=== PATIENT | female | born 1965 | race Caucasian/White ===

== ENCOUNTER 2021-07-19 13:34 | Outpatient (REF) | payer MEDICAID, SELFPAY ==
[2021-07-19 20:17] LABS: Vitamin B12 496 pg/mL (193-986)
== END 2021-07-19 13:35 | disposition home or self-care (01) ==
LOC: NCHCN 13:34
PROVIDERS: Visit Provider Nurse Practitioner
DX: E53.8 Deficiency of other specified B group vitamins (principal)
CPT/HCPCS: 82607

== ENCOUNTER 2021-08-18 00:19 | Outpatient (CLI) | payer MEDICAID, SELFPAY ==
--- NOTE | 2021-08-18 11:26 | DI.MAMMO_ITS ---
Exam(s) MAMMO SCREENING EXAM: MAMMO SCREENING CLINICAL HISTORY: SCREENING FOR BREAST CANCER Z12.39 TECHNIQUE: Bilateral full field digital CC and MLO mammographic images were obtained with 3D tomosyn thesis and utilizing computer aided detection (CAD). COMPARISON: Available for comparison. FINDINGS: Masses/Architectural Distortion: There is a focal asymmetry in the central left breast seen on the ML O view. It may represent overlying fibroglandular tissue. Spot compression views requested. Microcalcifications: No suspicious pleomorphic-type are seen. Skin Thickening/Nipple Retraction: None. IMPRESSION: 1. Focal asymmetry in the central left breast on the MLO view. 2. A spot compression view and left breast ultrasound are requested for further evaluation. BI-RADS Category 0 - Assessment Incomplete: Need additional imaging evaluation Breast Density - Category B - Scattered areas of fibroglandular density Breast density category C or D implies that the patient has dense breast tissue. Dense breast tissue is very common and is not abnormal but dense breast tissue can make it harder to find cancer on a ma mmogram. Also, dense breast tissue may increase their breast cancer risk. This information about the result of the mammogram report was provided to the patient to raise their awareness. Use this report when you speak with the patient about their risks for breast cancer, which includes their family hist ory. At that time, you may recommend for more screening tests (Ultrasound or MRI) as they might be us eful based on their risk. A negative radiographic report should not delay biopsy if a dominant or clinically suspicious mass is present. Up to ten percent of cancers are not identified on mammography. A negative report may reinforce clinical impression. Adenosis and dense breasts may obscure an underlying neoplasm. False positive reports average 6 to 10%. Patient will receive a letter notifying them of these results.
== END 2021-08-18 00:39 ==
PROVIDERS: Visit Provider Nurse Practitioner
DX: Z12.31 Encounter for screening mammogram for malignant neoplasm of breast (principal); R92.8 Other abnormal and inconclusive findings on diagnostic imaging of breast
CPT/HCPCS: 77063; 77067

== ENCOUNTER 2021-08-25 03:04 | Outpatient (CLI) | payer MEDICAID, SELFPAY ==
[2021-08-25 09:34] LABS: Abs Immature Grans 0.01 10^3/uL (0.0-0.06); Absolute Basophil Count 0.02 10^3/uL (0.0-0.2); Absolute Lymphocyte Count 1.91 10^3/uL (1.2-3.4); Absolute Monocyte Count 0.49 10^3/uL (0.1-0.8); Absolute Neutrophil Count 3.63 10^3/uL (1.2-6.7); Basophils % 0.3; Eosinophils % 1.6; HCT 39.4 % (36.0-46.0); HGB 13.1 g/dL (11.2-15.7); Immature Grans % 0.2; MCH 32.8 pg (27.0-33.0); MCHC 33.2 % (32.0-36.0); MCV 98.5 fL (80-95); MPV 8.9 fL (8.0-11.0); Neutrophils % 58.9; Nucleated RBC 0 %; Platelet Count 230 10^3/uL (130-400); RDW 12.4 % (11.7-14.6); RDW-SD 44.9 fL; WBC 6.16 10^3/uL (4.4-10.8)
[2021-08-25 10:00] LABS: ALT 26 U/L (14-59); AST 16 U/L (15-37); Albumin 4.3 g/dL (3.4-5.0); Alkaline Phosphatase 90 U/L (46-116); BUN 12 mg/dL (7-18); Bilirubin, Total 0.5 mg/dL (0.2-1.0); CREATININE 0.8 mg/dL (0.55-1.02); Chloride 106 mmol/L (98-107); Glucose 87 mg/dL (74-106); LDH 177 U/L (81-234); Potassium 3.9 mmol/L (3.5-5.1); Sodium 143 mmol/L (136-145); Total Protein 7.3 g/dL (6.4-8.2)
== END 2021-08-25 03:05 | disposition home or self-care (01) ==
LOC: LBO 03:05
PROVIDERS: Internal Medicine Hematology & Oncology
DX: C82.03 Follicular lymphoma grade I, intra-abdominal lymph nodes (principal)
CPT/HCPCS: 36415; 80053; 83615; 85025

== ENCOUNTER 2021-09-01 00:29 | Outpatient (CLI) | payer MEDICAID, SELFPAY ==
--- NOTE | 2021-09-01 | DI.MAMMO_ITS ---
Exam(s) US BREAST LT COMPLETE MG MAMMO DIAGNOSTIC UNI EXAM: MG MAMMO DIAGNOSTIC UNI- LEFT AND COMPLETE LEFT BREAST ULTRASOUND CLINICAL HISTORY: FOCAL ASYMMETRY IN CENTRAL LEFT BREAST. TECHNIQUE: Unilateral spot MLO mammographic images were obtained with 3D tomosynthesis technique and utilizing computer aided detection (CAD). Also performed complete left breast ultrasound including all 4 quadrants, the retroareolar region and left axilla. COMPARISON: Prior mammograms dating back to 2015, the most recent being 08/18/2021. FINDINGS: Diagnostic left breast mammogram: Additional spot compression 3D MLO view appears to dissipate the area of concern and render at less c oncerning and similar in appearance to prior mammograms. Complete left breast ultrasound: No evidence of solid or significant cystic lesions in all 4 quadrants. No significant adenopathy in the left axilla IMPRESSION: No radiographic evidence of malignancy in left breast. Also negative complete left breast ultrasound. Appropriate follow-up is to keep this patient yearly mammogram schedule, with earlier imaging if a se lf detected breast change is noted.. The patient was informed of the findings and follow-up recommendations prior to leaving the [facility]. BI-RADS Category 2 - Benign Findings Breast Density - Category B - Scattered areas of fibroglandular density Breast density Category C or D implies that the patient has dense breast tissue. Dense breast tissue can make it harder to find cancer on a mammogram. Dense breast tissue is also associated with an incr eased risk of breast cancer. This information about the result of the mammogram report was provided to the patient to raise their awareness. Use this report when you speak with the patient about their risks for breast cancer, which includes their family history. At that time, you may recommend additional screening tests (Ultrasoun d or MRI) as these tests may add significant information. A negative radiographic report should not delay biopsy if a dominant or clinically suspicious mass is present. Up to ten percent of cancers are not identified on mammography. A negative report may reinforce clinical impression. Adenosis and dense breasts may obscure an underlying neoplasm. False positive reports average 6 to 10%. Patient will receive a letter notifying them of these results.
== END 2021-09-01 00:49 ==
PROVIDERS: Visit Provider Nurse Practitioner
DX: Z12.31 Encounter for screening mammogram for malignant neoplasm of breast (principal); R92.8 Other abnormal and inconclusive findings on diagnostic imaging of breast; N64.59 Other signs and symptoms in breast
CPT/HCPCS: 76642; 77063; 77067

== ENCOUNTER 2021-09-21 00:49 | Outpatient (CLI) | payer MEDICAID, SELFPAY ==
--- NOTE | 2021-09-21 | DI.CT_ITS ---
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 TECHNIQUE: Imaging Protocol: Axial computed tomography images with coronal and sagittal reformatted images were created and reviewed CONTRAST MATERIAL: Intravenous: Omnipaque 350 Contrast volume:100 ml Oral: Yes. Oral contrast was also administered for bowel opacification. COMPARISON: No exams were available for comparison FINDINGS: CHEST: LUNGS: There is a benign-appearing 2-3 millimeter subpleural nodule in the posterior basal segment of the left lower lobe which is probably a small granuloma.. There are no ominous pulmonary nodules in either lung field. There are no confluent infiltrates and there are no pleural effusions. No focal fi ndings in the trachea and mainstem bronchi. MEDIASTINUM: There is no hilar nor mediastinal adenopathy. No significant axillary adenopathy.Partial ly visualized thyroid gland appears unremarkable. CARDIAC: Heart size is normal. There is no pericardial effusion.Ascending thoracic aorta diameter is 3.5 cm, upper normal. There is some atherosclerotic involvement of the descending thoracic aorta. No dissection. OSSEOUS: No significant osseous lesions.. ABDOMEN: There is no ascites. LIVER: There are no focal hepatic lesions nor dilatation of intrahepatic ducts. GALLBLADDER/BILIARY: No obvious gallbladder pathology. CBD is not dilated. PANCREAS: No evidence of pancreatic mass nor dilatation of the pancreatic duct. SPLEEN: Spleen is not enlarged. There are no intrasplenic lesions. Splenic and portal veins are castellano nt. ADRENALS: Right adrenal gland unremarkable. There is a 1.0 x 1.0 cm nodule at the level of the genu o f the left adrenal gland. KIDNEYS: No calculi nor hydronephrosis. No solid renal masses. There is a 1.5 x 1.5 cm cyst in the po sterior aspect of the left kidney. ABDOMINAL AORTA: Abdominal aorta is calcified-atherosclerotic but not enlarged. Same is true of the c ommon iliac arteries. LYMPH NODES: There are slightly enlarged para-aortic lymph nodes. Largest of these is left sided and measures 1.2 with a 0.8 cm. There is no adenopathy around the aortic bifurcation nor along the iliac chains there is no inguinal adenopathy. ABDOMINAL WALL: No evidence of significant anterior abdominal wall nor inguinal hernia. No abnormali ty of the anterior abdominal wall subcutaneous fat. GI: There is no evidence of bowel obstruction. PELVIS: LYMPH NODES: There is no intrapelvic nor inguinal adenopathy. GI: No evidence of appendicitis.There is sigmoid diverticuli but no evidence of obvious acutedivertic ulitis. URINARY BLADDER: No calculi nor masses evident REPRODUCTIVE: Uterus size is normal. No abnormal adnexal masses. No free fluid in the pelvis. OSSEOUS: No significant osseous lesions. Degenerative anterolisthesis L4 upon L5. Normal disc height at this level. Advanced disc space narrow ing at L5-S1 level and Modic type sub endplate changes in L5 and S1. No lytic osseous lesions evident IMPRESSION: 1. There is slightly enlarged para-aortic lymph nodes, the largest measuring 12 x 8 millimeter left p monty-aortic lymph node. No obvious lymphadenopathy elsewhere in the abdomen and pelvis. There is no sp lenomegaly. 2. There is no ascites. 3. No significant pulmonary findings nor intrathoracic adenopathy. 4. There is a 1 cm nodule in the left adrenal gland incidentally noted. This is probably an incidenta l adenoma. Other findings as above RADIATION DOSE DELIVERED: 1,594.17mGy.cm Total DLP DATA REPOSITORY: All CT scans at this facility are submitted to the National Radiology Data Registry (NRDR) Dose Index Registry (DIR) with the [employer] ([employer]). RADIATION OPTIMIZATION: All CT scans at this facility use at least one of these dose optimization te chniques: automated exposure control; mA and/or kV adjustment per patient size (includes targeted exa ms where dose is matched to clinical indication); or iterative reconstruction.
[2021-09-21 09:04] LABS: Abs Immature Grans 0.01 10^3/uL (0.0-0.06); Absolute Basophil Count 0.02 10^3/uL (0.0-0.2); Absolute Eosinophil Count 0.05 10^3/uL (0.0-0.7); Absolute Lymphocyte Count 1.46 10^3/uL (1.2-3.4); Absolute Monocyte Count 0.38 10^3/uL (0.1-0.8); Absolute Neutrophil Count 2.89 10^3/uL (1.2-6.7); Basophils % 0.4; HCT 35.7 % (36.0-46.0); HGB 11.5 g/dL (11.2-15.7); Immature Grans % 0.2; Lymphocytes % 30.4; MCHC 32.2 % (32.0-36.0); MCV 99.4 fL (80-95); MPV 9.3 fL (8.0-11.0); Monocytes % 7.9; Neutrophils % 60.1; Nucleated RBC 0 %; Platelet Count 218 10^3/uL (130-400); RBC 3.59 10^6/uL (3.93-5.22); RDW 12.2 % (11.7-14.6); RDW-SD 44.3 fL; WBC 4.81 10^3/uL (4.4-10.8)
[2021-09-21] MEDS: Breeza Beverage 473 ML BTL PO ×2 (09:04)
[2021-09-21] MEDS: Omnipaque 350 MG/ML 50 ML BTL PO (09:06)
[2021-09-21 09:29] LABS: ALT 22 U/L (14-59); AST 13 U/L (15-37); Albumin 3.7 g/dL (3.4-5.0); Alkaline Phosphatase 77 U/L (46-116); Anion Gap 7.2 mmol/L (3-11); BUN 14 mg/dL (7-18); Bilirubin, Total 0.3 mg/dL (0.2-1.0); CO2 28.8 mmol/L (21.0-32.0); CREATININE 0.7 mg/dL (0.55-1.02); Calcium 8.6 mg/dL (8.5-10.1); Chloride 108 mmol/L (98-107); Glucose 91 mg/dL (74-106); LDH 152 U/L (81-234); Potassium 3.6 mmol/L (3.5-5.1); Sodium 144 mmol/L (136-145); Total Protein 6.6 g/dL (6.4-8.2)
[2021-09-21] MEDS: Omnipaque 350 MG/ML 100 ML BTL IJ (09:58)
== END 2021-09-21 01:09 ==
PROVIDERS: Visit Provider Internal Medicine Hematology & Oncology
DX: C82.03 Follicular lymphoma grade I, intra-abdominal lymph nodes; R93.89 Abnormal findings on diagnostic imaging of other specified body structures
CPT/HCPCS: 74177; 80053; 71260; 83615; 85025; J3490; Q9967

== ENCOUNTER 2021-10-29 16:18 | Emergency (ER) | payer MEDICAID, SELFPAY ==
[2021-10-29 16:28] VITALS: BP 134/87; PULSE 96; RESP 16; TEMP 36.7; O2SAT 99
--- NOTE | 2021-10-29 16:30 | DI.CT_ITS ---
Exam(s) CT HEAD CERVICAL SPINE WO EXAM: CT HEAD CERVICAL SPINE WO CLINICAL HISTORY: fall with head injury on ice, r/o acute injury. TECHNIQUE: Imaging Protocol: Axial computed tomography images with coronal and sagittal reformatted images were created and reviewed COMPARISON: No exams were available for comparison FINDINGS: CT Head: Ventricles and Extra axial spaces: Normal in size and morphology for the patient's age. Hemorrhage: None. Cerebral parenchyma: Normal. Midline shift: None. Brainstem/Cerebellum: Normal. Calvarium: Normal. Visualized Paranasal sinuses/Mastoids: Clear. Soft Tissues: There is soft tissue swelling over the posterior apex of the skull. CT Cervical Spine: Bones: No acute fracture or subluxation. Multilevel degenerative changes are seen in the cervical spi ne. There is straightening of the normal cervical lordosis. Soft Tissues: Unremarkable. Lung Apices: Clear. IMPRESSION: 1. No acute intracranial process. 2. No acute fracture or subluxation in the cervical spine. 3. Posterior scalp soft tissue swelling. RADIATION DOSE DELIVERED: 1,410.73mGy.cm Total DLP DATA REPOSITORY: All CT scans at this facility are submitted to the National Radiology Data Registry (NRDR) Dose Index Registry (DIR) with the [employer] ([employer]CR). RADIATION OPTIMIZATION: All CT scans at this facility use at least one of these dose optimization te chniques: automated exposure control; mA and/or kV adjustment per patient size (includes targeted exa ms where dose is matched to clinical indication); or iterative reconstruction.
--- NOTE | 2021-10-29 16:37 | ED.GENADUL_ITS ---
Discharge Plan Disposition Patient Disposition: HOME Condition: Stable Discharge Details Clinical Impression: Closed head injury without loss of consciousness, Contusion of scalp Primary Care Provider: TI YATES ED Provider: Edwige Gaxiola Home Meds and New Rx's Prescriptions: Continued omeprazole 40 mg Capsule,Delayed Release(Dr/Ec) 40 mg PO DAILY 0RF losartan-hydrochlorothiazide 50-12.5 mg Tablet 1 tab PO DAILY 0RF Prempro 0.3-1.5 mg Tablet 1 tab PO DAILY 0RF Discharge Instructions Instructions: Head Injury (ED), Contusion in Adults (ED), Post Concussion Syndrome (ED) Additional Instructions: Drink plenty of fluids and get plenty of rest. Alternate tylenol and motrin as needed and directed for pain. Take the Zofran as needed and directed for nausea or vomiting. Avoid screen time including TV, phone or laptop over the next few days as it may strain your eyes and worsen her headache. Follow-up with your primary care doctor in 1 week. Return to the emergency department with any worsening or new concerning symptoms such as persistent headaches, persistent vomiting or any other concerns. Stand Alone Forms: Work Release Discharge Data Discharge Date/Time-TO BE ENTERED AT DEPARTURE: 10/29/21 18:37 Discharge Physician: Edwige Gaxiola Medical Decision Making 56-year-old female presents with headache and nausea after head injury earlier this morning. Denies LOC, vomiting or neck pain. Denies any other injuries. Vitals within normal limits. She has tenderness overlying the superior occipital region but no open wounds to scalp. No midline cervical tenderness. No focal deficits. Considering patient's age, will obtain CT imaging to rule out intracranial injury or cervical fracture. Will give a dose of Tylenol and Zofran for her nausea. Imaging reviewed and negative for acute concerning findings. Patient feels better and feels comfortable going home. Patient given Zofran bottle to go. Advised on the importance of limiting screen time to prevent worsening headache. Advised to follow up with the primary care doctor for re-evaluation. Usual and customary return precautions given prior to discharge. Medical Records Medical records reviewed: Yes I reviewed the patient's medical records. Imaging Data Radiologic Study: Radiologist's impression: CT Head Without Contrast Exam date and time: 10/29/2021 4:37 PM Age: 56 years old Clinical indication: Other: Occipital pain; Neck pain; Patient HX: S/P blunt trauma to head and neck. Fall TECHNIQUE: Imaging protocol: Computed tomography of the head without contrast. Radiation optimization: All CT scans at this facility use at least one of these dose optimization techniques: automated exposure control; mA and/or kV adjustment per patient size (includes targeted exams where dose is matched to clinical indication); or iterative reconstruction. COMPARISON: No relevant prior studies available. FINDINGS: Brain: No intracranial hemorrhage or extra-axial fluid collection. No evidence of mass effect or midline shift. Saldana-white matter differentiation is intact. Cerebral ventricles: No ventriculomegaly. Paranasal sinuses: Visualized sinuses are unremarkable. No fluid levels. Mastoid air cells: Unremarkable. Bones/joints: No acute osseus lesion or fracture. Soft tissues: Small posterior vertex scalp contusion. IMPRESSION: 1. No acute intracranial pathology. 2. Small posterior vertex scalp contusion. CT Cervical Spine Without Contrast Exam date and time: 10/29/2021 4:37 PM Age: 56 years old Clinical indication: Other: Occipital pain; Neck pain; Patient HX: S/P blunt trauma to head and neck. Fall TECHNIQUE: Imaging protocol: Computed tomography images of the cervical spine without contrast. Radiation optimization: All CT scans at this facility use at least one of these dose optimization techniques: automated exposure control; mA and/or kV adjustment per patient size (includes targeted exams where dose is matched to clinical indication); or iterative reconstruction. COMPARISON: No relevant prior studies available. FINDINGS: Bones/joints: Vertebral body heights are maintained. Straightening of the cervical lordosis. No locked or perched facets. Multilevel facet arthropathy. No acute cervical spine fracture. The dens is intact. Atlanto-axial intervals are normal. Discs/Spinal canal/Neural foramina: Multilevel degenerative changes with intervertebral disc height loss and osteophyte formation, with multilevel areas of mild canal stenosis. Lungs: Lung apices are clear. Soft tissues: Unremarkable. IMPRESSION: No acute cervical spine fracture. HPI General Mode of arrival: ambulatory . Date/Time Provider Initiated Documentation: 10/29/21 16:36 . Limitations to Documentation: no limitations . Information obtained by: patient . HPI Narrative: Patient is a 56-year-old female presents with headache, and nausea after head injury this morning. Patient states she was walking when she slipped on the ice and struck the back of her head on the icy ground. She states this occurred approximately 10 hours ago and is presenting now because her headache is persistent. She states she took ibuprofen this morning and Tylenol at noon without significant relief. She states she hit the top of her head on the ice and this is the main location of her headache. She states she developed a contusion in this area and applied ice and states it is since improved. She denies any neck pain or any other injuries. She denies any vomiting. Related Data Home Medications Medication Instructions Recorded Confirmed conj estrogen-medroxyprogesterone 1 tab PO DAILY 10/29/21 10/29/21 0.3 mg-1.5 mg tablet (Prempro) losartan 50 mg-hydrochlorothiazide 1 tab PO DAILY 10/29/21 10/29/21 12.5 mg tablet omeprazole 40 mg capsule,delayed 40 mg PO DAILY 10/29/21 10/29/21 release Allergies Allergy/AdvReac Type Severity Reaction Status Date / Time oxycodone [From Percocet] Allergy Intermediate Hives Unverified 10/29/21 17:19 Latex, Natural Rubber Allergy Unverified 10/29/21 17:19 General Stated Complaint: HeadInjury LIVAN: 3 Review of Systems All systems reviewed & are unremarkable except as noted in HPI and below Constitutional Constitutional: Reports as per HPI, Denies chills, Denies fever(s) and Reports headache(s) Eyes Eyes: Denies blurry vision ENT Ears, Nose, Mouth, and Throat: Reports dizziness, Reports headache(s), Denies sore throat and Denies throat swelling Cardiovascular Cardiovascular: Denies chest pain and Denies dyspnea Respiratory Respiratory: Denies cough and Denies dyspnea Gastrointestinal Gastrointestinal: Denies abdominal pain, Denies diarrhea, Reports nausea and Denies vomiting Genitourinary Genitourinary: Denies hematuria and Denies dysuria Musculoskeletal Musculoskeletal: Denies back pain and Denies numbness Integumentary/Breasts Skin/Breast: Denies lesions and Denies rash Neurologic Neurologic: Reports dizziness, Reports headache(s), Denies localized weakness and Denies numbness Allergic/Immunologic Allergic/Immunologic: Denies throat swelling PFS All Active Problems (Updated 10/29/21 @ 17:50 by Edwige Gaxiola DO) Closed head injury without loss of consciousness (Acute) Contusion of scalp (Acute) Social History Smoking/Tobacco Use Status: Former Tobacco Use Smoking risk assessment performed?: Yes Alcohol Intake: never Drug use: Never Substance use type: does not use Do you feel safe at home: Yes Exam Const General: cooperative, healthy appearing and no acute distress Orientation: alert, awake and oriented x3 HENMT Head: normal to inspection Head images: 1. Tenderness to palpation. No significant edema, ecchymosis, crepitus or open wounds noted. Ears: hearing grossly normal bilaterally, external ears normal and TM's normal bilaterally General nose exam: external nose normal Mouth: oral mucosae normal Eyes General: appearance normal, both eyes and all related structures Neck Neck: normal visual inspection Resp Effort & Inspection: normal respiratory effort and able to speak in complete sentences Cardio Rate: regular rate Skin General skin exam: no rashes or lesions noted Neuro General: patient alert, patient awake, patient oriented x3, gait normal, moves all extremities and no meningeal signs Cranial Nerves: CN's II-XI intact bilaterally Motor: muscle tone normal throughout and strength 5/5 throughout Extrem General: normal to inspection and full ROM Psych Appearance: grossly normal Affect: normal affect Course Vital Signs Vital signs: Vital Signs Temperature 98.1 F 10/29/21 16:28 Pulse 96 H 10/29/21 16:28 Respiratory Rate 16 10/29/21 16:28 Blood Pressure 134/87 10/29/21 16:28 Pulse Oximetry 99 10/29/21 16:28 Temperature 98.1 F 10/29/21 16:28 Temperature Source Tympanic 10/29/21 16:28 Pulse 96 H 10/29/21 16:28 Respiratory Rate 16 10/29/21 16:28 Blood Pressure 134/87 10/29/21 16:28 Blood Pressure Position Sitting 10/29/21 16:28 Pulse Oximetry 99 10/29/21 16:28 Oxygen Delivery Method Room Air 10/29/21 16:28 Oxygen Flow Rate 0 10/29/21 16:28 Pain Level 10 10/29/21 16:28
[2021-10-29] MEDS: Acetaminophen 500 MG TAB 1000 MG PO ×2 (16:58→18:37)
[2021-10-29] MEDS: Ondansetron O.D.T. 4 MG TABEF PO (16:58)
--- NOTE | 2021-10-29 17:32 | DI.VRAD_ITS ---
PROCEDURE INFORMATION: Exam: CT Head Without Contrast Exam date and time: 10/29/2021 4:37 PM Age: 56 years old Clinical indication: Other: Occipital pain; Neck pain; Patient HX: S/P blunt trauma to head and neck. Fall TECHNIQUE: Imaging protocol: Computed tomography of the head without contrast. Radiation optimization: All CT scans at this facility use at least one of these dose optimization techniques: automated exposure control; mA and/or kV adjustment per patient size (includes targeted exams where dose is matched to clinical indication); or iterative reconstruction. COMPARISON: No relevant prior studies available. FINDINGS: Brain: No intracranial hemorrhage or extra-axial fluid collection. No evidence of mass effect or midline shift. [place]dana-white matter differentiation is intact. Cerebral ventricles: No ventriculomegaly. Paranasal sinuses: Visualized sinuses are unremarkable. No fluid levels. Mastoid air cells: Unremarkable. Bones/joints: No acute osseus lesion or fracture. Soft tissues: Small posterior vertex scalp contusion. IMPRESSION: 1. No acute intracranial pathology. 2. Small posterior vertex scalp contusion. PROCEDURE INFORMATION: Exam: CT Cervical Spine Without Contrast Exam date and time: 10/29/2021 4:37 PM Age: 56 years old Clinical indication: Other: Occipital pain; Neck pain; Patient HX: S/P blunt trauma to head and neck. Fall TECHNIQUE: Imaging protocol: Computed tomography images of the cervical spine without contrast. Radiation optimization: All CT scans at this facility use at least one of these dose optimization techniques: automated exposure control; mA and/or kV adjustment per patient size (includes targeted exams where dose is matched to clinical indication); or iterative reconstruction. COMPARISON: No relevant prior studies available. FINDINGS: Bones/joints: Vertebral body heights are maintained. Straightening of the cervical lordosis. No locked or perched facets. Multilevel facet arthropathy. No acute cervical spine fracture. The dens is intact. Atlanto-axial intervals are normal. Discs/Spinal canal/Neural foramina: Multilevel degenerative changes with intervertebral disc height loss and osteophyte formation, with multilevel areas of mild canal stenosis. Lungs: Lung apices are clear. Soft tissues: Unremarkable. IMPRESSION: No acute cervical spine fracture. Dictated and Authenticated by: Joe Degroot MD. Ordering:JAVIER Gibbons MD
[2021-10-29] MEDS: Ondansetron O.D.T. 4 MG TABEF, 3 TABS/BTL PO (18:37)
== END 2021-10-29 18:37 | disposition home or self-care (01) ==
PROVIDERS: Emergency Provider Physician Assistant; PCP Nurse Practitioner Family
DX: S09.8XXA Other specified injuries of head, initial encounter (principal); S00.03XA Contusion of scalp, initial encounter; W00.0XXA Fall on same level due to ice and snow, initial encounter; R11.0 Nausea
CPT/HCPCS: 99284; 70450; 72125; 99283

== ENCOUNTER 2021-12-09 02:19 | Outpatient (CLI) | payer MEDICAID, SELFPAY ==
[2021-12-09 10:10] LABS: Abs Immature Grans 0.02 10^3/uL (0.0-0.06); Absolute Basophil Count 0.03 10^3/uL (0.0-0.2); Absolute Eosinophil Count 0.06 10^3/uL (0.0-0.7); Absolute Lymphocyte Count 1.82 10^3/uL (1.2-3.4); Absolute Monocyte Count 0.48 10^3/uL (0.1-0.8); Absolute Neutrophil Count 3.19 10^3/uL (1.2-6.7); Basophils % 0.5; Eosinophils % 1.1; HCT 37.7 % (36.0-46.0); HGB 12.6 g/dL (11.2-15.7); Immature Grans % 0.4; Lymphocytes % 32.5; MCH 32.6 pg (27.0-33.0); MCHC 33.4 % (32.0-36.0); MCV 97.4 fL (80-95); MPV 8.9 fL (8.0-11.0); Monocytes % 8.6; Neutrophils % 56.9; Nucleated RBC 0 %; Platelet Count 225 10^3/uL (130-400); RBC 3.87 10^6/uL (3.93-5.22); RDW 12.4 % (11.7-14.6); RDW-SD 43.8 fL
[2021-12-09 10:28] LABS: ALT 22 U/L (14-59); AST 14 U/L (15-37); Albumin 4.1 g/dL (3.4-5.0); Alkaline Phosphatase 82 U/L (46-116); Anion Gap 6.2 mmol/L (3-11); BUN 18 mg/dL (7-18); Bilirubin, Total 0.5 mg/dL (0.2-1.0); CO2 28.8 mmol/L (21.0-32.0); CREATININE 0.8 mg/dL (0.55-1.02); Chloride 107 mmol/L (98-107); Glucose 81 mg/dL (74-106); LDH 172 U/L (81-234); Potassium 3.8 mmol/L (3.5-5.1); Sodium 142 mmol/L (136-145); Total Protein 7.3 g/dL (6.4-8.2)
== END 2021-12-09 02:20 | disposition home or self-care (01) ==
LOC: LBO 02:19
PROVIDERS: PCP Nurse Practitioner Family; Visit Provider Internal Medicine Hematology & Oncology
DX: C82.03 Follicular lymphoma grade I, intra-abdominal lymph nodes (principal)
CPT/HCPCS: 36415; 80053; 83615; 85025

== ENCOUNTER 2022-02-15 11:04 | Outpatient (CLI) | payer MEDICAID, SELFPAY ==
--- NOTE | 2022-02-15 10:45 | DI.RAD_ITS ---
Exam(s) XR SHOULDER RT COMPLETE 2+V EXAM: XR SHOULDER RT COMPLETE 2+V CLINICAL HISTORY: 1 month pain. TECHNIQUE: 2D digital imaging was performed. COMPARISON: No exams were available for comparison FINDINGS: Two views No evidence of fracture or dislocation. No calcifications seen in the non diminished subacromial spa ce. No obvious degenerative changes in the glenohumeral joint. AC joint appears unremarkable. Bone density normal. No osseous lesions. IMPRESSION: No significant radiographic findings on these two views of the right shoulder. DATA REPOSITORY: RADIATION DOSE DELIVERED:
== END 2022-02-15 11:05 | disposition home or self-care (01) ==
LOC: DIORS 11:04
PROVIDERS: PCP Nurse Practitioner Family; Visit Provider Physician Assistant Surgical
DX: M25.511 Pain in right shoulder (principal)
CPT/HCPCS: 73030

== ENCOUNTER 2022-04-14 01:35 | Outpatient (CLI) | payer MEDICAID, SELFPAY ==
[2022-04-14 10:49] LABS: Abs Immature Grans 0.03 10^3/uL (0.0-0.06); Absolute Basophil Count 0.02 10^3/uL (0.0-0.2); Absolute Eosinophil Count 0.04 10^3/uL (0.0-0.7); Absolute Lymphocyte Count 1.63 10^3/uL (1.2-3.4); Absolute Monocyte Count 0.39 10^3/uL (0.1-0.8); Absolute Neutrophil Count 3.57 10^3/uL (1.2-6.7); Basophils % 0.4; Eosinophils % 0.7; HCT 33.2 % (36.0-46.0); HGB 11.1 g/dL (11.2-15.7); Immature Grans % 0.5; Lymphocytes % 28.7; MCH 32.6 pg (27.0-33.0); MCHC 33.4 % (32.0-36.0); MCV 98 fL (80-95); Monocytes % 6.9; Neutrophils % 62.8; Platelet Count 236 10^3/uL (130-400); RDW 12.7 % (11.7-14.6); RDW-SD 44.9 fL; WBC 5.68 10^3/uL (4.4-10.8)
[2022-04-14 11:05] LABS: ALT 27 U/L (14-59); AST 17 U/L (15-37); Albumin 3.6 g/dL (3.4-5.0); Alkaline Phosphatase 82 U/L (46-116); Anion Gap 9.1 mmol/L (3-11); BUN 13 mg/dL (7-18); Bilirubin, Total 0.3 mg/dL (0.2-1.0); CO2 26.9 mmol/L (21.0-32.0); CREATININE 0.8 mg/dL (0.55-1.02); Calcium 8.6 mg/dL (8.5-10.1); Chloride 107 mmol/L (98-107); Glucose 125 mg/dL (74-106); LDH 155 U/L (81-234); Potassium 3.6 mmol/L (3.5-5.1); Sodium 143 mmol/L (136-145); Total Protein 6.7 g/dL (6.4-8.2)
[2022-04-14 11:41] LABS: Vitamin B12 1265 pg/mL (193-986)
== END 2022-04-14 01:36 | disposition home or self-care (01) ==
LOC: LBO 01:35
PROVIDERS: PCP Nurse Practitioner Family; Visit Provider Internal Medicine Hematology & Oncology
DX: C82.03 Follicular lymphoma grade I, intra-abdominal lymph nodes; E53.8 Deficiency of other specified B group vitamins
CPT/HCPCS: 36415; 80053; 82607; 83615; 85025

== ENCOUNTER → 2022-04-22 00:06 | Outpatient (CLI) | payer MEDICAID, SELFPAY ==
--- NOTE | 2022-04-22 08:30 | DI.MRI_ITS ---
Exam(s) MR UPPER JOINT RT WO EXAM: MR UPPER JOINT RT WO CLINICAL HISTORY: pain,bursitis rt shoulder,m75.51. TECHNIQUE: Multiplanar multisequence MRI was performed. COMPARISON: Plain films 15 February 2022 FINDINGS: Bones: There is no fracture or contusion pattern. The acromioclavicular joint shows a small amount of fluid is well as inferior spurring. There is hima arent impingement on the distal supraspinatus muscle tendon junction. Rotator Cuff: The supraspinatus tendon shows increased signal in the bursal sided fibers. There is a question of a small focal tear anteriorly. There is no muscle atrophy. Infraspinatus tendon is intact. The subscapularis and teres minor are normal. Labrum and biceps anchor: The biceps tendon is located. The anchor is well maintained. The labrum is within normal limits. Soft tissues: Unremarkable. Bursa: Fluid is noted in the subacromial subdeltoid bursa. Small amount of fluid is seen in the reji ohumeral joint and subcoracoid bursa. IMPRESSION: Degenerative changes of the AC joint with a pin min on the supraspinatus. Supraspinatus tendinitis w ith question of a small focal tear anteriorly. DATA REPOSITORY:
== END ==
PROVIDERS: PCP Nurse Practitioner Family; Visit Provider Student in an Organized Health Care Education/Training Program
DX: M75.51 Bursitis of right shoulder (principal); M19.011 Primary osteoarthritis, right shoulder
CPT/HCPCS: 73221

== ENCOUNTER 2022-07-27 13:40 | Outpatient (REF) | payer MEDICAID, SELFPAY ==
[2022-07-27 14:41] LABS: Iron 83 ug/dL (50-170); Total Iron Binding Capacity 368 ug/dL (250-450); Transferrin Sat 23 % (15-50)
[2022-07-27 15:03] LABS: Vitamin D 25 Total 27.6 ng/mL (30-100)
[2022-07-27 15:24] LABS: ALT 27 U/L (14-59); AST 19 U/L (15-37); Albumin 3.9 g/dL (3.4-5.0); Alkaline Phosphatase 88 U/L (46-116); Anion Gap 10.1 mmol/L (3-11); BUN 16 mg/dL (7-18); Bilirubin, Total 0.3 mg/dL (0.2-1.0); CO2 26.9 mmol/L (21.0-32.0); CREATININE 0.9 mg/dL (0.55-1.02); Calcium 8.8 mg/dL (8.5-10.1); Calculated LDL 111 mg/dL (<100); Chloride 105 mmol/L (98-107); Cholesterol 203 mg/dL (<200); Ferritin 87 ng/mL (8-252); Glucose 106 mg/dL (74-106); HDL Cholesterol 53 mg/dL (40-60); Magnesium 1.7 mg/dL (1.8-2.4); Potassium 3.4 mmol/L (3.5-5.1); Sodium 142 mmol/L (136-145); TSH (W/Ref FT4) 2.41 uIU/mL (0.36-3.74); Total Protein 6.9 g/dL (6.4-8.2); Triglyceride 196 mg/dL (<150); Vitamin B12 665 pg/mL (193-986)
== END 2022-07-27 13:41 | disposition home or self-care (01) ==
LOC: NCHCN 13:40
PROVIDERS: PCP Nurse Practitioner Family; Visit Provider Nurse Practitioner Family
DX: D64.9 Anemia, unspecified (principal); F41.8 Other specified anxiety disorders; E53.8 Deficiency of other specified B group vitamins; F31.89 Other bipolar disorder; K21.9 Gastro-esophageal reflux disease without esophagitis; I10 Essential (primary) hypertension; C82.03 Follicular lymphoma grade I, intra-abdominal lymph nodes; Z87.891 Personal history of nicotine dependence
CPT/HCPCS: 80053; 80061; 82306; 82607; 82728; 83540; 83550; 83735; 84443

== ENCOUNTER 2022-08-25 01:07 | Outpatient (CLI) | payer MEDICAID, SELFPAY ==
--- NOTE | 2022-08-25 | DI.MAMMO_ITS ---
Exam(s) MAMMO SCREENING EXAM: MAMMO SCREENING CLINICAL HISTORY: SCREENING, Z12.39 TECHNIQUE: Mammograms were interpreted according to the usual protocol including computer analysis w [employer] CAD system, tomosynthesis and C-view imaging. COMPARISON: 2015 through 2020 FINDINGS: The breasts are composed of scattered fibroglandular densities, Breast Density category B. No suspicious masses or suspicious microcalcifications are seen. Vascular calcifications are inciden tally noted. No skin thickening or abnormal axillary lymph nodes are seen. There has been no significant change from prior exams. IMPRESSION: BI-RADS Category 1, Negative mammogram Yearly screening mammography is recommended. Breast Density - Category B, scattered fibroglandular densities. A negative radiographic report should not delay biopsy if a dominant or clinically suspicious mass is present. Up to ten percent of cancers are not identified on mammography. A negative report may reinforce clinical impression. Adenosis and dense breasts may obscure an underlying neoplasm. False positive reports average 6 to 10%. Patient will receive a letter notifying them of these results.
[2022-08-25 15:53] LABS: Abs Immature Grans 0.03 10^3/uL (0.0-0.06); Absolute Basophil Count 0.03 10^3/uL (0.0-0.2); Absolute Eosinophil Count 0.05 10^3/uL (0.0-0.7); Absolute Lymphocyte Count 1.73 10^3/uL (1.2-3.4); Absolute Monocyte Count 0.49 10^3/uL (0.1-0.8); Absolute Neutrophil Count 4.53 10^3/uL (1.2-6.7); Basophils % 0.4; Eosinophils % 0.7; HCT 36.7 % (36.0-46.0); HGB 12.1 g/dL (11.2-15.7); Immature Grans % 0.4; Lymphocytes % 25.2; MCH 31.8 pg (27.0-33.0); MCV 97 fL (80-95); MPV 9.7 fL (8.0-11.0); Monocytes % 7.1; Neutrophils % 66.2; Platelet Count 257 10^3/uL (130-400); RDW 12.5 % (11.7-14.6); RDW-SD 43.8 fL; WBC 6.86 10^3/uL (4.4-10.8)
== END 2022-08-25 01:08 | disposition home or self-care (01) ==
LOC: DI 08:34 → NCHCN 15:36
PROVIDERS: PCP Nurse Practitioner Family; Visit Provider Nurse Practitioner Family
DX: Z12.31 Encounter for screening mammogram for malignant neoplasm of breast (principal)
CPT/HCPCS: 77063; 77067; 85025

== ENCOUNTER 2022-12-29 02:00 | Outpatient (CLI) | payer MEDICAID, SELFPAY ==
[2022-12-29 13:32] LABS: Abs Immature Grans 0.02 10^3/uL (0.0-0.06); Absolute Basophil Count 0.03 10^3/uL (0.0-0.2); Absolute Eosinophil Count 0.08 10^3/uL (0.0-0.7); Absolute Lymphocyte Count 2.28 10^3/uL (1.2-3.4); Absolute Monocyte Count 0.53 10^3/uL (0.1-0.8); Absolute Neutrophil Count 4.51 10^3/uL (1.2-6.7); Basophils % 0.4; Eosinophils % 1.1; HCT 36.1 % (36.0-46.0); Immature Grans % 0.3; Lymphocytes % 30.6; MCH 31.5 pg (27.0-33.0); MCHC 33.2 % (32.0-36.0); MCV 95 fL (80-95); MPV 8.9 fL (8.0-11.0); Monocytes % 7.1; Neutrophils % 60.5; Platelet Count 247 10^3/uL (130-400); RBC 3.81 10^6/uL (3.93-5.22); RDW 12.8 % (11.7-14.6); RDW-SD 44.1 fL; WBC 7.45 10^3/uL (4.4-10.8)
[2022-12-29 13:54] LABS: ALT 33 U/L (14-59); AST 19 U/L (15-37); Alkaline Phosphatase 90 U/L (46-116); Anion Gap 8.3 mmol/L (3-11); BUN 13 mg/dL (7-18); Bilirubin, Total 0.3 mg/dL (0.2-1.0); CO2 26.7 mmol/L (21.0-32.0); CREATININE 0.9 mg/dL (0.55-1.02); Chloride 105 mmol/L (98-107); Glucose 106 mg/dL (74-106); LDH 173 U/L (81-234); Potassium 3.5 mmol/L (3.5-5.1); Sodium 140 mmol/L (136-145); Total Protein 7.3 g/dL (6.4-8.2)
== END 2022-12-29 02:01 | disposition home or self-care (01) ==
PROVIDERS: PCP Nurse Practitioner Family; Visit Provider Internal Medicine Hematology & Oncology
DX: C82.90 Follicular lymphoma, unspecified, unspecified site (principal)
CPT/HCPCS: 36415; 80053; 83615; 85025

== ENCOUNTER 2023-04-14 12:05 | Day surgery (SDC) | payer OTHER, SELFPAY ==
--- NOTE | 2023-04-13 22:43 | W.COLOREPORT ---
Date of service: 04/14/23 Time of Service: 14:16 Colonoscopy Report Date of procedure: 04/14/23 Pre-op diagnosis general: crc screening Post-op diagnosis procedure note: other (abdullahi- diverticula) Surgeon: Jaki Arias Anesthesia Type: General:No Airway Estimated blood loss (mL): 0 Pathology: none sent Complications: None Disposition: same day Prep: Miralax/Dulcolax Retraction Time: 13 Procedure Description: After informed consent was obtained the patient was taken to the procedure room and placed in a left decubitous position. Monitors were applied and a time out was done. The patients name, date of , procedure, allergies to medications and metal in their body was reviewed. The patient was then sedated. Once sedated and comfortable a rectal exam was done. External exam was normal. Internal exam revealed a normal sphincter tone and no palpable masses. The scope was then introduced and retrofelexed. No internal hemorrhoids were identified. The scope was then advanced to the cecum without difficulty. The TI and appendiceal orifice were identified. The prep was BBPS 2 in all segments for a total of 6. The scope was then slowly retracted over 13 minutes back into the rectum. There are no polyps or AVMS's. She has multiple small diverticula that do carry all the way over to the cecum. There is no signs of active bleeding or infection. The scope was removed and the patient was woken up and taken back to Same day surgery in stable condition. The patient tolerated the procedure well and there were no immediate complications. Follow up: The patient should follow up in 10 years unless they develop changes in bowel habits or other new gastrointestinal complaints.
--- NOTE | 2023-04-13 22:49 | W.PM.HP.N ---
Date of service: 04/14/23 Time of Service: 13:37 Assessment and Plan Assessment and plan (1) Anemia: Status: Chronic Assessment and plan: Plan: Colonoscopy w/ general & natural airway. The?patient will be scheduled by my office. -Patient recently had a dental procedure and is on antibiotics for this. Her dentist told her it is not actively infected and the antibiotics are precautionary. Patient understands that if she gets a colonoscopy at this point she is at high risk for developing further infections abscesses, or osteomyelitis. Patient understands and accepts the risks and wishes to proceed with colonoscopy today. Informed consent is obtained for the procedural (explained in simple layman's terms that?the pt and/or family could understand) explaining risks vs benefits and alternatives to the procedure and consequences if we do not do the procedure and need/rational for the procedure. Risks include but are not limited to: bleeding, infection, perforation of colon.? This would necessitate emergency surgery to repair the damage w/ possible ostomy; and other associated complications w/ the required surgery. ? Also complications of anesthesia including aspiration, MS/CVA/, inability to complete the procedure. I discussed with the?patient would they could expect during the procedure, post procedure and recovery time and risks.? The patient understands that they need to have a ride home after the procedure.? The patient was given all this information in writing and expressed understanding. If there are any questions or concerns please feel free to contact our office.? Generally Colonoscopy does not require antibiotics prophylaxis, (2) Alcohol use, unspecified, in remission: Status: Acute (3) Menopausal symptoms: Status: Acute (4) B12 deficiency: (5) Bipolar affective disorder: (6) Former smoker: (7) GERD (gastroesophageal reflux disease): (8) Hypertension: (9) Anxiety: History of Present Illness Narrative: clinic encounter 01/26/23 7 y/o female with history of anxiety, GERD, hypertension, follicular large cell lymphoma (tx with Rituxan in 2020), and bipolar affective disorder presents for her first colonoscopy screening pre-op.? She is unaware of her family history, she was adopted.? She denies any changes in bowel habits including bloody or black tarry stools, abdominal pain, diarrhea or constipation. She denies constitutional symptoms.? She denies chest pain, palpitations, dyspnea or dyspnea with exertion.? She she describes being physically active going on walks daily.? She denies prior history or family history of adverse reactions or complications with anesthesia. The patient denies any history of stroke, MS, seizures, bleeding or clotting disorders. She denies having any implanted metal in her body. Patient did have dental work done 2 days ago. She does have a infected tooth that could not be completely extracted. She is on antibiotics. I did discuss with her today that colonoscopy does to have rare but possible chance of bacterial translocation increasing infection causing the abscess or osteomyelitis in the jaw. Which could lead to further complications. It is low it is a very low chance of this happening but it could occur. Patient wishes to proceed with the procedure today. Which could lead to further complications. It is low it is a very low chance of this happening but it could occur. Patient wishes to proceed with the procedure today. Allergy/AdvReac Type Severity Reaction Status Date / Time oxycodone [From Percocet] Allergy Intermediate Hives Unverified 01/26/23 14:48 Latex, Natural Rubber Allergy ? ? Unverified 01/26/23 14:48 Home Medications ?Medication ?Instructions ?Recorded ?Confirmed ?Type losartan 50 mg-hydrochlorothiazide 1 tab PO DAILY 10/29/21 01/27/23 History 12.5 mg tablet ? omeprazole 40 mg capsule,delayed 40 mg PO DAILY 10/29/21 01/27/23 History release ? acetaminophen 325 mg capsule 325 mg PO ONCE PRN 07/05/22 01/27/23 History (Tylenol) ? conj estrogen-medroxyprogesterone 1 tab PO DAILY #90 tabs 12/13/22 01/27/23 Rx 0.45 mg-1.5 mg tablet (Prempro) ? cholecalciferol (vitamin D3) 10 20 mcg PO DAILY 12/21/22 ? History mcg (400 unit) capsule ? bisacodyl 5 mg tablet,delayed 5 mg PO ONCE #4 tabs 01/26/23 01/27/23 Rx release (Dulcolax (bisacodyl)) ? polyethylene glycol 3350 17 17 g PO ONCE #238 grams 01/26/23 01/27/23 Rx gram/dose oral powder ? Smoking/Tobacco Us Review of Systems All systems reviewed & are unremarkable except as noted in HPI and below PFSH All Active Problems Follicular large cell lymphoma (Acute ~2020) Bursitis of right shoulder (Acute) Rotator cuff tear, right (Acute) Arthritis of right acromioclavicular joint (Acute) Tendonitis of long head of biceps brachii of right shoulder (Acute) Menopausal symptoms (Acute) Alcohol use, unspecified, in remission (Acute) per referral Sobriety since March 2021 Anemia (Chronic) Medical History Anxiety B12 deficiency Bipolar affective disorder Former smoker GERD (gastroesophageal reflux disease) Hypertension Surgical History Hx of colonoscopy Social History Smoking/Tobacco Use Status: Former Tobacco Use Quit Date: 09/04/21 Smoking risk assessment performed?: Yes Alcohol Intake: never Drug use: Never Substance use type: does not use Housing: apartment Current gender identity: female Do you feel safe at home: Yes Do you feel safe in your relationship?: Yes History History 4 Para Hx # Term Pregnancies 4 Multiple births Hx # Pregnancies Ectopic pregnancies AB induced Hx Number of Living Children 4 AB spontaneous Meds Allergies and Home Medications Allergies Allergy/AdvReac Type Severity Reaction Status Date / Time oxycodone [From Percocet] Allergy Intermediate Hives, Verified 04/14/23 12:30 Nausea, itching Latex, Natural Rubber Allergy Skin Rash, Verified 04/14/23 12:30 itchy throat Home Medications Medication Instructions Recorded Confirmed Type losartan 50 mg-hydrochlorothiazide 1 tab PO DAILY 10/29/21 04/14/23 History 12.5 mg tablet omeprazole 40 mg capsule,delayed 40 mg PO DAILY 10/29/21 04/14/23 History release acetaminophen 325 mg capsule 325 mg PO ONCE PRN 07/05/22 04/13/23 History (Tylenol) cholecalciferol (vitamin D3) 10 20 mcg PO DAILY 12/21/22 04/13/23 History mcg (400 unit) capsule conj estrogen-medroxyprogesterone 1 tab PO DAILY #90 tabs 04/05/23 04/14/23 Rx 0.45 mg-1.5 mg tablet (Prempro) Exam Narrative Exam Narrative: PHYSICAL EXAM GENERAL APPEARANCE: Alert, healthy appearance, oriented, x 3,? in no acute distress HYDRATION: Well hydrated HEAD, EYES, EARS, NECK, THROAT: Head is normocephalic, pupils equal, round, reactive to light and accommodation, ocular movement intact, sclera clear and no jaundice. ?Dentition : Minimal irritation around the affected tooth?#1. LUNGS: normal respiration/normal chest excursion. ?Clear to auscultation bilaterally. ?No wheeze. ?HEART: Regular rate and rhythm. no murmurs ABDOMEN: soft and non-tender to palpation.? Normal bowel sounds.? Time Spent Time spent with Patient: <40 minutes Time was spent: preparing to see the patient(eg.review tests), obtaining and/or reviewing separately otained hiistory, ordering medications,tests, procedures, referring, communicating with other health inspector health care facilities, indepentently interpreting results, counseling the patient and care coordination
--- NOTE | 2023-04-13 22:53 | PDOC.DSDIS_ITS ---
Date of service: 04/14/23 Time of Service: 14:21 Discharge Plan Disposition Patient Disposition: Home Condition: Good Discharge Details Reason For Visit: colon scope Attending Provider: Rocky Martini Primary Care Provider: TI YATES Home Meds and New Rx's Prescriptions: Continued acetaminophen [Tylenol] 325 mg capsule 325 mg PO ONCE PRN cholecalciferol (vitamin D3) 10 mcg (400 unit) capsule 20 mcg PO DAILY Prempro 0.45-1.5 mg tablet 1 tab PO DAILY Qty: 90 3RF omeprazole 40 mg Capsule,Delayed Release(Dr/Ec) 40 mg PO DAILY losartan-hydrochlorothiazide 50-12.5 mg Tablet 1 tab PO DAILY Discontinued polyethylene glycol 3350 17 gram/dose powder 17 g PO ONCE Qty: 238 0RF Rx Instructions: Take per colonoscopy instructions provided by ordering providers office bisacodyl [Dulcolax (bisacodyl)] 5 mg tablet,delayed release (DR/EC) 5 mg PO ONCE Qty: 4 0RF Rx Instructions: Take per colonoscopy instructions provided by ordering providers office Discharge Instructions Additional Instructions: DSU Colonoscopy Post- Op Instructions Instructions for Everyone who is given Anesthesia: For your safety, please do the following for the next twenty-four (24) hours: *Do Not operate a motor vehicle (car, truck, motorcycle, etc.) *Do Not drink alcoholic beverages or use any recreational drugs for the first 24 hours or while taking pain medications. The medications in your body may have a reaction that can be dangerous. *Do Not make any important decisions or sign any important papers. Findings: -pandiverticula Follow up: -Make sure you are moving your bowels on a regular basis and not straining. If you find you have issues with chronic constipation or straining to move your b owels, then we recommend you start a fiber supplement such as Metamucil, and to take this daily. -Repeat colonoscopy in 10 years time 1. No lifting over 20 pounds or strenuous activity for the first 24 hours after your procedure. After 24 hours there are no restrictions on your activity but you may feel fatigued for a few days. 2. After you arrive home you may have a light meal and return to your normal diet as you can tolerate it without feeling sick to your stomach. 3. You may have a bloated, gaseous feeling in your belly (abdomen) after a colonoscopy. Passing gas and belching will help. Walking or lying down on your left side with your knees flexed may relieve the discomfort. Call the office at [phone] (Office) or [phone] (Hospital) right away if you notice any of the following: a.Vomiting of blood or ?coffee ground stools?. b.Rectal bleeding 1Tbsp, blood clots or continuous bleeding. c.Severe belly (abdominal) pain. d.A hard distended belly (abdomen) and an inability to pass gas. 4. Please don?t expect to have a normal BM (bowel movement) for 2-3 days after your procedure. 5. If there are questions regarding the findings of your procedure, please contact your doctor 6. If you are unable to contact your doctor with a problem, contact the hospital at [phone]. 7. Continue all your regular medications unless directed otherwise. I understand the above instructions and have no questions. Signature of Patient or Adult Escort Name of Responsible Adult Escort Signature of Nurse Date/Time Activity:: see above Diet:: see above Discharge Orders Discharge Orders: Discharge Order (Routine); Ordered 04/14/23 Ordered By: Jaki Arias DS: Diagnosis Discharge Diagnosis (1) Anemia: Status: Chronic Asessment and Plan: The patient is seen and examined after their colonoscopy.? The patient has been able to pass gas.? They are not having abdominal pain.? They have been able to tolerate liquids and a snack.? They do not have any nausea or vomiting.? They are not having any chest pain or shortness of breath.??? They are not having any rectal bleeding. Their vital signs have been stable-see nursing notes. We discussed findings during their colonoscopy, and any biopsies that were done/polyps that were removed. The patient will be sent a letter with any biopsy results, and when to repeat the colonoscopy.-see discharge instructions. Patient was given explicit instructions to follow-up regarding colonoscopy-refer to discharge instructions.? We reviewed resumption of medications. Patient verbalized understanding and discharged in stable and satisfactory condition- See nursing notes. (2) Alcohol use, unspecified, in remission: Status: Acute (3) Menopausal symptoms: Status: Acute (4) B12 deficiency: (5) Bipolar affective disorder: (6) Former smoker: (7) GERD (gastroesophageal reflux disease): (8) Hypertension: (9) Anxiety: (10) Diverticula of colon: Status: Acute
[2023-04-14 12:19] VITALS: BP 122/77; PULSE 86; RESP 17; TEMP 36.6; O2SAT 97
[2023-04-14] MEDS: Lactated Ringers 1,000 ML 80 ML IV (12:40)
--- NOTE | 2023-04-14 13:04 | ANES.PREOP_ITS ---
General Info Date of Service Date Performed: 04/14/23 Height: 5 ft 4 in Weight: 86.1 kg Body Mass Index (BMI): 32.5 Surgical Procedure: Operation Date: 04/14/23 12:50 Proposed Procedure Side Surgeon katelyn Arias, DO Meds Allergies and Home Medications Allergies Allergy/AdvReac Type Severity Reaction Status Date / Time oxycodone [From Percocet] Allergy Intermediate Hives, Verified 04/14/23 12:30 Nausea, itching Latex, Natural Rubber Allergy Skin Rash, Verified 04/14/23 12:30 itchy throat Home Medication Medication Instructions Recorded losartan 50 mg-hydrochlorothiazide 1 tab PO DAILY 10/29/21 12.5 mg tablet omeprazole 40 mg capsule,delayed 40 mg PO DAILY 10/29/21 release acetaminophen 325 mg capsule 325 mg PO ONCE PRN 07/05/22 (Tylenol) cholecalciferol (vitamin D3) 10 20 mcg PO DAILY 12/21/22 mcg (400 unit) capsule conj estrogen-medroxyprogesterone 1 tab PO DAILY #90 tabs 04/05/23 0.45 mg-1.5 mg tablet (Prempro) Current Visit Medications: Current Medications Generic Name Dose Route Start Last Admin Trade Name Freq PRN Reason Stop Dose Admin Hyoscyamine Sulfate 0.125 mg 04/14/23 07:45 Hyoscyamine 0.125 Mg Sl/Oral/Chew SL 05/14/23 07:44 DIRECTED PRN Ringer's Solution 1,000 mls @ 80 mls/hr 04/14/23 06:00 04/14/23 12:40 IV 05/13/23 23:59 80 mls/hr INFUSION LON Administration IV Miscellaneous Supplies 1 each 04/14/23 06:00 Iv Access IV 05/13/23 23:59 DIRECTED LON Ondansetron HCl 4 mg 04/14/23 07:45 Ondansetron 4 Mg/2 Ml Vial IVP 05/14/23 07:44 Q4H PRN PRN Nausea / Vomiting Sodium Chloride 0 ml 04/14/23 06:00 Normal Saline Flush 10 Ml Syr IV 05/13/23 23:59 PRN PRN Sodium Chloride 0 ml 04/14/23 06:00 Normal Saline 10 Ml Vial IJ 05/13/23 23:59 DIRECTED PRN Sterile Water 0 ml 04/14/23 06:00 Water,Injection,Sterile 10 Ml Vial IJ 05/13/23 23:59 DIRECTED PRN PFSH Active Problems Active Problems: Problem Status Onset Code Follicular large cell lymphoma ~2020 C82.80 Bursitis of right shoulder M75.51 Rotator cuff tear, right M75.101 Arthritis of right acromioclavicular joint M19.011 Tendonitis of long head of biceps brachii of right shoulder M75.21 Menopausal symptoms N95.1 Alcohol use, unspecified, in remission F10.91 Anemia D64.9 Medical History Medical History Anxiety B12 deficiency Bipolar affective disorder Former smoker GERD (gastroesophageal reflux disease) Hypertension Surgical History Surgical History (Updated 04/14/23 @ 12:28 by Mena Benz, RN) Hx of colonoscopy Tobacco Smoking/Tobacco Use Status: Former Tobacco Use Alcohol Alcohol Intake: never Substance Use Substance use: Never Substance use type: does not use Prental History History 4 Para Hx # Term Pregnancies 4 Multiple births Hx # Pregnancies Ectopic pregnancies AB induced Hx Number of Living Children 4 AB spontaneous Vital Signs and Lab Results Vital Signs Most Recent Vital Signs in EMR: Most Recent Vital Signs Temp Pulse Resp BP Pulse Ox 36.6 C 86 17 122/77 97 04/14/23 12:19 04/14/23 12:19 04/14/23 12:19 04/14/23 12:19 04/14/23 12:19 Lab Results Blood Type / Crossmatch: No Data to Display Complete Blood Count: No Data to Display Complete Metabolic Panel: No Data to Display Liver Function Panel: No Data to Display Coagulation Panel: No Data to Display Cardiac Panel: No Data to Display Arterial Blood Gas: No Data to Display Venous Blood Gas: 2 No Data to Display Pancreas Panel: No Data to Display Thyroid Panel: No Data to Display Infectious Disease: No Data to Display Blood Cultures: No Data to Display Toxicology Panel: No Data to Display Anesthesia Assessment and Plan Anesthesia History Personal History: PONV Family History: Family History Unknown Exercise Tolerance Exercise Tolerance: Metabolic Equivalents>4 Pertinent Negatives Pertinent Negatives: No Symptoms of GERD, No Major Cardiovascular Symptoms or Complaints, No Major Pulmonary Symptoms or Complaints and No History of CVA/TIA Cardiac & Pulmonary Exam Cardiac Exam: Normal S1/S2 Heart Sounds Pulmonary Exam: Clear Bilateral Breath Sounds Implantable Cardiac Device Does patient have a Pacemaker or an ICD?: No Airway Exam Known Difficult Airway: No Mallampati Class: 2 Mouth Opening: Normal (> 3cm) Thyromental Distance: Greater than 3 cm Neck Range of Motion: Full ROM Neck Circumference: Normal Teeth Condition: Normal Dentition ASA Classification ASA Score: ASA 2 Emergency Case?: No NPO Status NPO Status: NPO Clears >2 hours, Solids >8 hours Anesthesia Plan Resuscitation Status: Full Code Anesthesia Technique: General Anesthesia Airway Planned: Natural Airway Monitors Used: Standard Monitors
[2023-04-14 13:21] VITALS: BMI 32.5
[2023-04-14 14:12] VITALS: BP 112/77; PULSE 72; RESP 16; TEMP 36.4; O2SAT 97
--- NOTE | 2023-04-14 14:16 | W.ANESPOSTOP ---
Postoperative Evaluation Date, Time and Location Date Performed: 04/14/23 Time Performed: 14:12 Patient Location: Day Surgery Unit Vital Signs Most Recent Imported Vital Signs: Most Recent Vital Signs Temp Pulse Resp BP Pulse Ox 36.4 C L 72 16 112/77 97 04/14/23 14:12 04/14/23 14:12 04/14/23 14:12 04/14/23 14:12 04/14/23 14:12 Pain Score Most Recent Pain Score: Most Recent Pain Score Pain Level 0 04/14/23 14:12 Assessment Mental Status: Arousable with meaningful communication Airway and Respiratory Function: Patent airway with normal (patient baseline) respiratory exam Cardiovascular Function: Hemodynamically Stable Hydration Status: Adequately Hydrated Nausea & Vomiting: No Nausea or Vomiting Pain: Pt. Denies Any Pain Peripheral Nerve Block: Patient did not receive a nerve block
[2023-04-14 14:40] VITALS: BP 123/79; PULSE 67; RESP 16; TEMP 36.5; O2SAT 96
== END 2023-04-14 15:07 | disposition home or self-care (01) ==
PROVIDERS: Surgery; PCP Nurse Practitioner Family; Visit Provider Student in an Organized Health Care Education/Training Program
PROC: 0DJD8ZZ Inspection of Lower Intestinal Tract, Via Natural or Artificial Opening Endoscopic (ICD-10-PCS; CPT 45378; principal; 2023-04-14 12:45)
DX: K57.30 Diverticulosis of large intestine without perforation or abscess without bleeding; K21.9 Gastro-esophageal reflux disease without esophagitis; I10 Essential (primary) hypertension; Z87.891 Personal history of nicotine dependence; Z12.11 Encounter for screening for malignant neoplasm of colon; E53.8 Deficiency of other specified B group vitamins; C82.80 Other types of follicular lymphoma, unspecified site
CPT/HCPCS: 45378; J2405

== ENCOUNTER 2023-04-20 05:02 | Outpatient (CLI) | payer OTHER, SELFPAY ==
[2023-04-20 07:19] LABS: Abs Immature Grans 0.02 10^3/uL (0.0-0.06); Absolute Basophil Count 0.03 10^3/uL (0.0-0.2); Absolute Eosinophil Count 0.09 10^3/uL (0.0-0.7); Absolute Lymphocyte Count 1.81 10^3/uL (1.2-3.4); Absolute Monocyte Count 0.32 10^3/uL (0.1-0.8); Absolute Neutrophil Count 3.13 10^3/uL (1.2-6.7); Basophils % 0.6; Eosinophils % 1.7; HCT 36.6 % (36.0-46.0); HGB 12.1 g/dL (11.2-15.7); Immature Grans % 0.4; Lymphocytes % 33.5; MCHC 33.1 % (32.0-36.0); MCV 97 fL (80-95); MPV 9.1 fL (8.0-11.0); Monocytes % 5.9; Neutrophils % 57.9; Platelet Count 254 10^3/uL (130-400); RBC 3.78 10^6/uL (3.93-5.22); RDW 13.1 % (11.7-14.6); RDW-SD 46.6 fL
[2023-04-20 07:31] LABS: ALT 25 U/L (14-59); AST 16 U/L (15-37); Albumin 3.9 g/dL (3.4-5.0); Alkaline Phosphatase 98 U/L (46-116); Anion Gap 11.6 mmol/L (3-11); BUN 14 mg/dL (7-18); Bilirubin, Total 0.4 mg/dL (0.2-1.0); CO2 24.4 mmol/L (21.0-32.0); CREATININE 0.8 mg/dL (0.55-1.02); Chloride 108 mmol/L (98-107); Estimated GFR 84.82 (mL/min/1.73m2); Glucose 144 mg/dL (74-106); LDH 175 U/L (81-234); Potassium 3.7 mmol/L (3.5-5.1); Sodium 144 mmol/L (136-145); Total Protein 7.1 g/dL (6.4-8.2)
== END 2023-04-20 05:03 | disposition home or self-care (01) ==
PROVIDERS: PCP Nurse Practitioner Family; Visit Provider Internal Medicine Hematology & Oncology
DX: C82.03 Follicular lymphoma grade I, intra-abdominal lymph nodes (principal)
CPT/HCPCS: 36415; 80053; 83615; 85025

== ENCOUNTER 2023-05-29 20:00 | Outpatient (REF) | payer OTHER, SELFPAY ==
[2023-05-29 20:50] LABS: Hemoglobin A1C 5.6 % (<5.7)
== END 2023-05-29 20:01 | disposition home or self-care (01) ==
LOC: NCHCN 20:00
PROVIDERS: PCP Nurse Practitioner Family; Visit Provider Nurse Practitioner Family
DX: R73.9 Hyperglycemia, unspecified (principal)
CPT/HCPCS: 83036

== ENCOUNTER 2023-08-15 16:42 | Outpatient (REF) | payer OTHER, SELFPAY ==
--- NOTE | 2023-08-15 16:15 | PAPFT_PTH ---
PATIENT: Terese Traore LOC: [facility] U#:[id number] AGE/SX: 58/F ROOM: RE08/15/[address]: Deepthi Oliveira : 1965 BED: DIS: 08/15/2023 SPEC #: [id number] RECD: 08/15/23 17:42 STATUS: MAYTE REBarb #: [id number] ALDO: 08/15/23 16:[address]: Deepthi Oliveira DEPT: [facility] Cytology RECD BY: Bernie Byrne ENTERED: 08/15/23 17:43 SP TYPE: PAPFT AIDEE DR: TI YATES NP Tissues: 1 - CX/ENDOCX FOR PAP SMEARS Procedures: PAP THIN PREP/[facility] Screening Comments: [id number]
== END 2023-08-15 16:43 | disposition home or self-care (01) ==
LOC: LBN 16:42
PROVIDERS: PCP Nurse Practitioner Family; Visit Provider Advanced Practice Midwife
DX: Z12.4 Encounter for screening for malignant neoplasm of cervix (principal)
CPT/HCPCS: 88142

== ENCOUNTER → 2023-08-25 01:03 | Outpatient (CLI) | payer OTHER, SELFPAY ==
--- NOTE | 2023-08-25 10:18 | DI.DEXA_ITS ---
Exam(s) XR DEXA BONE DENSITY W/WO BOGDAN EXAM: XR DEXA BONE DENSITY W/WO BOGDAN CLINICAL HISTORY: ANNUAL VAMP LINER EXAM,Z01.49,SCREENING TECHNIQUE: COMPARISON: No exams were available for comparison FINDINGS: Lateral Spine Image: Unremarkable. No compression deformities identified. Left hip: Total T-Score: 0.5 Total Z-Score: 1.4 T- and Z-scores: Within normal limits. Lumbar Spine: Total T-Score: 0.9 Total Z-Score: 2.3 T- and Z-scores: Within normal limits. IMPRESSION: No evidence of osteoporosis.
== END ==
PROVIDERS: PCP Nurse Practitioner Family; Visit Provider Advanced Practice Midwife
DX: Z13.820 Encounter for screening for osteoporosis
CPT/HCPCS: 77080

== ENCOUNTER 2023-08-29 04:16 | Outpatient (CLI) | payer OTHER, SELFPAY ==
[2023-08-29 07:28] LABS: Abs Immature Grans 0.01 10^3/uL (0.0-0.06); Absolute Basophil Count 0.02 10^3/uL (0.0-0.2); Absolute Eosinophil Count 0.08 10^3/uL (0.0-0.7); Absolute Lymphocyte Count 2.16 10^3/uL (1.2-3.4); Basophils % 0.4; Eosinophils % 1.5; HCT 38.9 % (36.0-46.0); HGB 12.5 g/dL (11.2-15.7); Immature Grans % 0.2; Lymphocytes % 39.5; MCH 30.9 pg (27.0-33.0); MCHC 32.1 % (32.0-36.0); MCV 96 fL (80-95); Monocytes % 7.3; Neutrophils % 51.1; Platelet Count 261 10^3/uL (130-400); RBC 4.04 10^6/uL (3.93-5.22); RDW 12.7 % (11.7-14.6); WBC 5.47 10^3/uL (4.4-10.8)
[2023-08-29 08:25] LABS: ALT 27 U/L (14-59); AST 16 U/L (15-37); Albumin 3.8 g/dL (3.4-5.0); Alkaline Phosphatase 88 U/L (46-116); Anion Gap 7.9 mmol/L (3-11); BUN 15 mg/dL (7-18); Bilirubin, Total 0.4 mg/dL (0.2-1.0); CO2 28.1 mmol/L (21.0-32.0); CREATININE 0.9 mg/dL (0.55-1.02); Calculated LDL 109 mg/dL (<100); Chloride 106 mmol/L (98-107); Cholesterol 182 mg/dL (<200); Estimated GFR 73.64 (mL/min/1.73m2); Glucose 109 mg/dL (74-106); HDL Cholesterol 51 mg/dL (40-60); Potassium 3.8 mmol/L (3.5-5.1); Sodium 142 mmol/L (136-145); Total Protein 7.1 g/dL (6.4-8.2); Triglyceride 113 mg/dL (<150); Vitamin B12 657 pg/mL (193-986)
== END 2023-08-29 04:17 | disposition home or self-care (01) ==
LOC: LBO 04:16
PROVIDERS: PCP Nurse Practitioner Family; Visit Provider Advanced Practice Midwife
DX: E78.5 Hyperlipidemia, unspecified (principal); Z01.419 Encounter for gynecological examination (general) (routine) without abnormal findings; E53.8 Deficiency of other specified B group vitamins; D64.9 Anemia, unspecified
CPT/HCPCS: 36415; 80053; 80061; 82607; 85025

== ENCOUNTER → 2023-09-05 00:01 | Outpatient (CLI) | payer OTHER, SELFPAY ==
--- NOTE | 2023-09-05 07:00 | DI.MAMMO_ITS ---
Exam(s) MAMMO SCREENING EXAM: MAMMO SCREENING CLINICAL HISTORY: screening,z12.39 TECHNIQUE: Bilateral full field digital CC and MLO mammographic images were obtained with 3D tomosyn thesis and utilizing computer aided detection (CAD). COMPARISON: Available for comparison. FINDINGS: Masses/Architectural Distortion: There is again seen a well-circumscribed 3 mm nodule in the retroare olar region of the left breast on the CC view. No new nodules or suspicious areas of architectural d istortion are seen. Microcalcifications: No suspicious pleomorphic-type are seen. Skin Thickening/Nipple Retraction: None. IMPRESSION: 1. No significant interval change with no specific features of malignancy noted. 2. Unless there is more urgent need, screening mammography is recommended, as per [employer] guidelines. BI-RADS Category 2 - Benign Findings Breast Density - Category B - Scattered areas of fibroglandular density Breast density category C or D implies that the patient has dense breast tissue. Dense breast tissue is very common and is not abnormal but dense breast tissue can make it harder to find cancer on a ma mmogram. Also, dense breast tissue may increase their breast cancer risk. This information about the result of the mammogram report was provided to the patient to raise their awareness. Use this report when you speak with the patient about their risks for breast cancer, which includes their family hist ory. At that time, you may recommend for more screening tests (Ultrasound or MRI) as they might be us eful based on their risk. A negative radiographic report should not delay biopsy if a dominant or clinically suspicious mass is present. Up to ten percent of cancers are not identified on mammography. A negative report may reinforce clinical impression. Adenosis and dense breasts may obscure an underlying neoplasm. False positive reports average 6 to 10%. Patient will receive a letter notifying them of these results.
== END ==
PROVIDERS: PCP Nurse Practitioner Family; Visit Provider Obstetrics & Gynecology
DX: Z12.31 Encounter for screening mammogram for malignant neoplasm of breast (principal)
CPT/HCPCS: 77063; 77067

== ENCOUNTER 2023-10-26 01:37 | Outpatient (CLI) | payer OTHER, SELFPAY ==
[2023-10-26 08:42] LABS: Abs Immature Grans 0.01 10^3/uL (0.0-0.06); Absolute Basophil Count 0.04 10^3/uL (0.0-0.2); Absolute Eosinophil Count 0.09 10^3/uL (0.0-0.7); Absolute Lymphocyte Count 1.91 10^3/uL (1.2-3.4); Absolute Monocyte Count 0.37 10^3/uL (0.1-0.8); Absolute Neutrophil Count 3.18 10^3/uL (1.2-6.7); Basophils % 0.7; Eosinophils % 1.6; HGB 11.5 g/dL (11.2-15.7); Immature Grans % 0.2; Lymphocytes % 34.1; MCH 31.6 pg (27.0-33.0); MCHC 32.9 % (32.0-36.0); MCV 96 fL (80-95); MPV 8.9 fL (8.0-11.0); Monocytes % 6.6; Neutrophils % 56.8; Platelet Count 246 10^3/uL (130-400); RBC 3.64 10^6/uL (3.93-5.22); RDW 13.7 % (11.7-14.6)
[2023-10-26 08:58] LABS: ALT 26 U/L (14-59); AST 19 U/L (15-37); Albumin 3.9 g/dL (3.4-5.0); Alkaline Phosphatase 99 U/L (46-116); Anion Gap 8.1 mmol/L (3-11); BUN 17 mg/dL (7-18); Bilirubin, Total 0.3 mg/dL (0.2-1.0); CO2 26.9 mmol/L (21.0-32.0); CREATININE 0.8 mg/dL (0.55-1.02); Calcium 9.1 mg/dL (8.5-10.1); Chloride 105 mmol/L (98-107); Estimated GFR 84.82 (mL/min/1.73m2); Glucose 123 mg/dL (74-106); LDH 176 U/L (81-234); Potassium 3.8 mmol/L (3.5-5.1); Sodium 140 mmol/L (136-145); Total Protein 7.3 g/dL (6.4-8.2)
== END 2023-10-26 01:38 | disposition home or self-care (01) ==
PROVIDERS: PCP Nurse Practitioner Family; Visit Provider Internal Medicine Hematology & Oncology
DX: C82.03 Follicular lymphoma grade I, intra-abdominal lymph nodes (principal)
CPT/HCPCS: 36415; 80053; 83615; 85025

== ENCOUNTER 2024-04-25 04:23 | Outpatient (CLI) | payer MEDICAID, SELFPAY ==
--- OUTSIDE RECORDS SUMMARY | 2024-04-25 04:26 | XMS_ITS | Encounter Summary ---
Author Organization [facility] Address [facility] [place] [address] Care Team Providers Care Programmer Analyst Health It Name Role Phone JakeAdelina baez KATELIN Primary Care Provider [phone] Encounter Details Date Type Department Care Team (Late st Contact Info) Description 11/15/2023 Ancillary Procedure Radiology Library [place] [id number] Mi Capps APRN [address] [place] [address] [place] [address] Social History Tobacco Use Types Packs/Day Years Used Date Smoking Tobacco: Never Smokeless Tobacco: Never Overall Financial Resource Strain (CARDIA) Answe r Date Recorded How hard is it for you to pa y for the very basics like food, housing, medical care, and heating? Not very hard 08/19/2021 Hunger Vital Sign Answer Date Recorded Within the past 12 months, y ou worried that your food would run out before you got the money to buy more. Never true 08/19/20 21 Within the past 12 months, t he food you bought just didn't last and you didn't have money to get more. Never true 08/19/2021 PRAPARE - Transportation Answer Date Re corded In the past 12 months, has l ack of transportation kept you from medical appointments or from getting medications? No 08/04 In the past 12 months, has l ack of transportation kept you from meetings, work, or from getting things needed for daily living? No 08/19/2021 Housing Stability Vital Sign Answer Gopal e Recorded In the last 12 months, was t here a time when you were not able to pay the mortgage or rent on time? No 08/19/2021 In the last 12 months, how many places have you lived? 2 08/19/2021 In the last 12 months, was t here a time when you did not have a steady place to sleep or slept in a jail (including now)? No 08/19/2021 Sex and Gender Information Value Date Recorded Sex Assigned at Female 09/02/2022 11:46 AM EST Gender Identity Not on file Sexual Orientation Straight 09/02/2022 11 :46 AM EST documented as of this encounter Plan of Treatment Upcoming Encounters Date Type Department Care Team (Late st Contact Info) Description 04/25/2024 8:00 AM EDT Office Visit Hematology/Oncology at [address] [phone] Lopez Jacome MD [facility] [address] HEMATOLOGY [place] [address] documented as of this encounter Procedures Procedure Name Priority Date/Time Associated Diagnosis Comments FILM LIBRARY STORAGE ONLY CT CHEST ABDOMEN PELVIS Routine 11/15/2023 12:00 AM EDT documented in this encounter Results * Film Library- Storage Only CT Chest Abdomen Pelvis (11/15/2023 12:00 AM EDT) Narrative DEMETRICE - 11/16/2023 10:37 AM EDT This exam is auto-finalizing. It's purpose is for storage only. Mi Capps FIELD COUNSEL IMG FILM LIBR FACUNDO ORDERABLES [place], [place] documented in this encounter Visit Diagnoses Not on filedocumented in this encounter Care Teams Programmer Analyst Health It Relationship Specialty Start Date End Date Adelina Pagan APRN [address] [place] [address] PCP - General Family Medicine 07/19/21 documented as of this encounter
--- OUTSIDE RECORDS SUMMARY | 2024-04-25 04:26 | XMS_ITS | Encounter Summary ---
Author Organization [facility] Address [facility] [place] [address] Care Team Providers Care Twx Operator Name Role Phone Ej Adelina KATELIN Primary Care Provider [phone] Encounter Details Date Type Department Care Team (Late st Contact Info) Description 04/22/2024 Orders Only Hematology/Oncology at [address] [phone] Mi Capps APRN [address] [place] [address] [place] [address] Follicular non-Hodgkin's lymphoma Social History Tobacco Use Types Packs/Day Years [...] place to sleep or slept in a residential (including now)? No 08/19/2021 Sex and Gender Information Value Date Recorded Sex Assigned at Female 09/02/2022 11:46 AM EST Gender Identity Not on file Sexual Orientation Straight 09/02/2022 11 :46 AM EST documented as of this encounter Plan of Treatment Upcoming Encounters Date Type Department Care Team (Late st Contact Info) Description 04/25/2024 8:00 AM EDT Office Visit Hematology/Oncology at [address] [phone] Lopez Jacome MD [facility] [place] [address] Scheduled Orders Name Type Priority Associated Diagnoses Orde r Schedule CBC (with Diff) Lab STAT Follicular non-Hodgkin's lymphoma Expected: 05/06/2024, Expires: 04/22/2025 Comprehensive metabolic panel Lab STAT Follicular non-Hodgkin's lymphoma Expected: 05/06/2024, Expires: 04/22/2025 Lactate Dehydrogenase Lab STAT Follicular non-Hodgkin's lymphoma Expected: 05/06/2024, Expires: 04/22/2025 documented as of this encounter Visit Diagnoses Diagnosis Follicular non-Hodgkin's lymphoma documented in this encounter Care Teams Twx Operator Relationship Specialty Start Date End Date Adelina Pagan APRN [address] [place] [address] PCP - General Family Medicine 07/19/21 documented as of this encounter
--- OUTSIDE RECORDS SUMMARY | 2024-04-25 04:26 | XMS_ITS | Clinical Summary ---
Author Organization [facility] Address [facility] [place] [address] Care Team Providers Care Technical Services Specialist Name Role Phone Ej Adelina THOMASON Primary Care Provider [phone] Allergies Active Allergy Reactions Criticality Noted Date Comments Cat/Feline Products Medium CIS - Hives Gloves, Latex High CIS - Anaphylaxis Latex High CIS - Anaphylaxis Latex Dams High CIS - Anaphylaxis Oxycodone-Acetaminoph en Itching,Nausea And Vomiting 08/19/2021 Medications Medication Sig Dispensed Refills Start Date End Date Status estrogen, conjugated,-medroxyPR OGESTERone (PREMPRO) 0.3-1.5 mg Tablet Take 1 tablet by mouth daily. Active losartan-hydrochlorot hiazide (HYZAAR) 50-12.5 mg Tablet Take 1 tablet by mouth daily. Active omeprazole (PriLOSEC) 40 mg Capsule, Delayed Release(E.C.) Take 40 mg by mouth daily. Active conj estrogens-bazedoxifen e (Duavee) 0.45-20 mg tablet Take by mouth daily. Active gabapentin (Neurontin) 100 mg capsule TAKE 1-3 CAPSULES BY MOUTH THREE TIMES A DAY NEEDED FOR BURNING PAIN 10/05/2023 Active Active Problems Problem Noted Date Diagnosed Date Follicular non-Hodgkin's lymphoma 12/09/2021 Overview (12/09/2021): DX April 2020 In [place] follicular low-grade lymphoma. . She had stage II. Treated with Rituxan weekly for [address] scan 09/2021 with only small 12x8 mm lymph node Encounters Date Type Department Care Team Description 04/22/2024 Orders Only Hematology/Oncology at [address] [phone] Mi Capps APRN Follicular non-Hodgkin's lymphoma 04/18/2024 Travel from Last 3 Months Social History Tobacco Use Types Packs/Day Years [...] place to sleep or slept in a fpc (including now)? No 08/19/2021 Sex and Gender Information Value Date Recorded Sex Assigned at Female 09/02/2022 11:46 AM EST Gender Identity Not on file Sexual Orientation Straight 09/02/2022 11 :46 AM EST Last Filed Vital Signs Vital Sign Reading Time Taken Comments Blood Pressure 125/61 10/26/2023 9:32 AM EST Pulse 72 10/26/2023 9:32 AM EST Temperature 36.6 ??C (97.8 ??F) 10/26/2023 9:32 AM ES T Respiratory Rate 18 10/26/2023 9:32 AM EST Oxygen Saturation 96% 10/26/2023 9:32 AM EST Inhaled Oxygen Concentration - - Weight 92 kg (202 lb 12.8 oz) 10/26/2023 9:32 AM EST Height 165.1 cm (5' 5) 10/26/2023 9:32 AM EST Body Mass Index 33.75 10/26/2023 9:32 AM EST Plan of Treatment Upcoming Encounters Date Type Department Care Team (Late st Contact Info) Description 04/25/2024 8:00 AM EDT Office Visit Hematology/Oncology at [address] [phone] Lopez Jacome MD [facility] [address] [place]ATOLOG[place] [address] Health Maintenance Due Date Last Done Comments CT Colonography 1965 Colonoscopy 1965 Colorectal Cancer Screening 1965 FIT DNA 1965 FIT 1965 Sigmoidoscopy (10 year) with FIT yearly 1965 Sigmoidoscopy 1965 HIV screen 02/21/1982 Hepatitis C Screening 02/21/1982 Lipid Screening 02/21/1982 Tdap adult 02/21/1983 Tetanus vaccine 02/21/1983 HPV test 02/21/1994 PAP Smear 02/21/1994 Breast Cancer Share Decision Needed 2004 Breast Cancer screening 2004 Zoster vaccine (1 of 2) 02/21/2014 Advance Directive 02/21/2019 Covid-19 Vaccine ( season) 2023 Influenza (Flu) vaccine (1 o f 1 - Influenza standard series) 05/05/2024 Diabetes Screening (HgbA1C or Glucose) 10/26/2026, 12/29/2022 Procedures Procedure Name Priority Date/Time Associated Diagnosis Comments COMPREHENSIVE METABOLIC PANEL Routine 10/26/2023 from Last 3 Months or Most Recently Relevant to Health Maintenance Results * (ABNORMAL) Comprehensive metabolic panel (non-fasting) (10/26/2023) Glucose 123(H) Blood Urea Nitrogen 17 Creatinine 0.8 Sodium 140 Potassium 3.8 Calcium 9.1 Protein, Total 7.3 Albumin 3.9 Bilirubin, Total 0.3 Alkaline Phosphatase 99 Aspartate Aminotransferase 19 Alanine Aminotransferase 26 Lactate Dehydrogenase 176 Blood 10/26/2023 Historical Provider MD CHEMISTRY ORDERAB LES from Last 3 Months or Most Recently Relevant to Health Maintenance Care Teams Technical Services Specialist Relationship Specialty Start Date End Date Adelina Pagan, SAP BASIS ADMINISTRATOR [address] [place] [address] PCP - General Family Medicine 07/19/21
--- OUTSIDE RECORDS SUMMARY | 2024-04-25 04:26 | XMS_ITS | Encounter Summary ---
Author Organization [facility] Address [facility] [place] [address] Care Team Providers Care Oil And Gas Superintendent Name Role Phone Adelina Pagan APRN Primary Care Provider [phone] Encounter Details Date Type Department Care Team (Latest Contact Info) Description 04/18/2024 Travel Social History Tobacco Use Types Packs/Day Years [...] place to sleep or slept in a mcc (including now)? No 08/19/2021 Sex and Gender Information Value Date Recorded Sex Assigned at Female 09/02/2022 11:46 AM EST Gender Identity Not on file Sexual Orientation Straight 09/02/2022 11 :46 AM EST documented as of this encounter Plan of Treatment Upcoming Encounters Date Type Department Care Team (Late st Contact Info) Description 04/25/2024 8:00 AM EDT Office Visit Hematology/Oncology at [address] [phone] Lopez Jacome MD [facility] [address] [place] [address] documented as of this encounter Visit Diagnoses Not on filedocumented in this encounter Care Teams Oil And Gas Superintendent Relationship Specialty Start Date End Date Adelina Pagan APRN [address] [place] [address] PCP - General Family Medicine 07/19/21 documented as of this encounter
--- OUTSIDE RECORDS SUMMARY | 2024-04-25 04:27 | XMS_ITS | Encounter Summary ---
Author Organization [facility] Address [facility] [place] [address] Care Team Providers Care Observation Nurse Name Role Phone Adelina Pagan APRN Primary Care Provider + [phone] Encounter Details Date Type Department Care Team (Latest Contact Info) Description 10/13/2022 Travel Social History Tobacco Use Types Packs/Day [...] place to sleep or slept in a group home (including now)? No 08/19/2021 Sex and Gender Information Value Date Recorded Sex Assigned at Female 09/02/2022 11:46 AM EST Gender Identity Not on file Sexual Orientation Straight 09/02/2022 11 :46 AM EST documented as of this encounter Plan of Treatment Upcoming Encounters Date Type Department Care Team (Late st Contact Info) Description 04/25/2024 8:00 AM EDT Office Visit Hematology/Oncology at [address] [phone] Lopez Jacome MD [facility] [address] [place] [address] documented as of this encounter Visit Diagnoses Not on filedocumented in this encounter Care Teams Observation Nurse Relationship Specialty Start Date End Date Adelina Pagan APRN [address] [place] [address] PCP - General Family Medicine 07/19/21 documented as of this encounter
--- OUTSIDE RECORDS SUMMARY | 2024-04-25 04:27 | XMS_ITS | Encounter Summary ---
Author Organization [facility] Address [address] [place] [address] Care Team Providers Care Log Yard Derrick Operator Name Role Phone Unavailable Primary Care Provider Unavailabl e Encounter Details Date Type Department Care Team (Late st Contact Info) Description 01/03/2007 Results Only [facility] [address] [place] [address] Starr Odonnell MD [address] [place] [id number] Social History Tobacco Use Types Packs/Day Years Used Date Smoking Tobacco: Never Assessed Sex and Gender Information Value Date Recorded Sex Assigned at Not on file Gender Identity Not on file Sexual Orientation Not on file documented as of this encounter Plan of Treatment Not on file documented as of this encounter Procedures Procedure Name Priority Date/Time Associated Diagnosis Comments CYTOPATHOLOGY Routine 01/03/2007 0:00 EDT documented in this encounter Results * CYTOPATHOLOGY (01/03/2007 0:00 EDT) Pathology Report: CYTOPATHOLOGY REPORT Reports generated via electronic interface contain original data; however they are lacking the format of the original report. Caution should be taken when reading/interpreti ng unformatted reports. Name: ? TERESE TRAORE ? Accession #: ? [id number] : ? 1965 (Age: 41) ??F ?Collect Date: ? 01/03/2007 Location: ? [facility] ? Receive Date: ? 01/05/2007 Provider: ?STARR ODONNELL MD Copy to: ? Specimen/Source: ?ThinPrep Pap Test, Vagina/Cervix/Endo cervix, processed on NGI ThinPrep Imaging System, with manual evaluation Last Menstrual Period: ? 12/06/06 Other: ? Additional clinical information: Benign hx ? SPECIMEN ADEQUACY ? Satisfactory for Evaluation - transformation zone component present GENERAL CATEGORIZATION ? Negative for Intraepithelial Lesion or Malignancy ? Document reviewed and electronically signed by: ? CASSIA Ramesh(ASCP) ? Report Date: ??01/08/2007 09:25 End of Report KALI NÚÑEZ 01/03/2007 01/05/2007 Starr Odonnell MD PATHOLOGY ORDERABLES KALI NÚÑEZ [address] [place] [address] documented in this encounter Visit Diagnoses Not on filedocumented in this encounter
--- OUTSIDE RECORDS SUMMARY | 2024-04-25 04:27 | XMS_ITS | Encounter Summary ---
Author Organization [facility] Address [facility] [place] [address] Care Team Providers Care Chief Gauger Name Role Phone Adelina Pagan APRN Primary Care Provider + [phone] Encounter Details Date Type Department Care Team (Latest Contact Info) Description 12/29/2022 Travel Social History Tobacco Use Types Packs/Day [...] place to sleep or slept in a retirement (including now)? No 08/19/2021 Sex and Gender Information Value Date Recorded Sex Assigned at Female 09/02/2022 11:46 AM EST Gender Identity Not on file Sexual Orientation Straight 09/02/2022 11 :46 AM EST documented as of this encounter Plan of Treatment Upcoming Encounters Date Type Department Care Team (Late st Contact Info) Description 04/25/2024 8:00 AM EDT Office Visit Hematology/Oncology at [address] [phone] Lopez Jacome MD [facility] [address] [place] [address] documented as of this encounter Visit Diagnoses Not on filedocumented in this encounter Care Teams Chief Gauger Relationship Specialty Start Date End Date Adelina Pagan APRN [address] [place] [address] PCP - General Family Medicine 07/19/21 documented as of this encounter
--- OUTSIDE RECORDS SUMMARY | 2024-04-25 04:27 | XMS_ITS | Encounter Summary ---
Author Organization [facility] Address [facility] [place] [address] Care Team Providers Care Roof Technician Name Role Phone NatalioAdelina higuera KATELIN Primary Care Provider [phone] Encounter Details Date Type Department Care Team (Late st Contact Info) Description 12/09/2021 11:00 AM EDT Office Visit Hematology/Oncology at [address] [phone] Lopez Jacome MD [facility] [address] HEMATOLOGY [place] [address] Tyra Kaur APRN [facility] [address] [place] [address] Follicular non-Hodgkin's lymphoma; Follicular lymphoma grade I of intra-abdominal lymph nodes; Follicular lymphoma, unspecified grade, unspecified body region Social History Tobacco Use Types Packs/Day Years [...] place to sleep or slept in a senior care (including now)? No 08/19/2021 Sex and Gender Information Value Date Recorded Sex Assigned at Female 09/02/2022 11:46 AM EST Gender Identity Not on file Sexual Orientation Straight 09/02/2022 11 :46 AM EST documented as of this encounter Last Filed Vital Signs Vital Sign Reading Time Taken Comments Blood Pressure 136/80 12/09/2021 11:03 AM EDT Pulse 80 12/09/2021 11:03 AM EDT Temperature 36.3 ??C (97.3 ??F) 12/09/2021 11:03 AM E DT Respiratory Rate 18 12/09/2021 11:03 AM EDT Oxygen Saturation 99% 12/09/2021 11:03 AM EDT Inhaled Oxygen Concentration - - Weight 82.3 kg (181 lb 6.4 oz) 12/09/2021 11:03 AM EDT Height 165.1 cm (5' 5) 12/09/2021 11:03 AM EDT Body Mass Index 30.19 12/09/2021 11:03 AM EDT documented in this encounter Progress Notes * Tyra Kaur, STUD [employer] - 12/09/2021 11:00 AM EDT Subjective Patient ID: Terese Traore is a 56 y.o. female here for f/u of Follicular NHL Patient Active Problem List Diagnosis ??? Follicular non-Hodgkin's lymphoma DX 2020 In [place] follicular low-grade lymphoma. . She had stage II. Treated with Rituxan weekly for [address] scan 09/2021 with LIS HPI Allan is doing very well. She QUIT SMOKING!!!!! She made the decision after her last visit with Dr. jacome and has not had a cigarette in over 10 Weeks! She otherwise has been ehalthy. No lumps or bumps, no drenchign night sweats, no recent infections.She did have a bad fall on the ice and hit her head - had CT - no bleed but +_ concussion. She alsosince then has been having some right shoulder pain and decreased ROM - she has not been elavaulated for this. She is inquiring about B12 shots= she was takign them monthly in [place] - none since moving back. She is fatigued and this makes her wonder if she needs more B12. Work at [employer] is very busy and she is not sure she can keep up with the pace and being on her feet all day long. Review of Systems Constitutional: Positive for fatigue. HENT: Negative. Eyes: Negative. Respiratory: Negative. Negative for cough and shortness of breath. Cardiovascular: Negative. Negative for chest pain, palpitations and leg swelling. Gastrointestinal: Negative. Negative for constipation, diarrhea, nausea and vomiting. Genitourinary: Negative. Musculoskeletal: Positive for arthralgias. Right shoulder, bilat knee pain/swelling. Skin: Negative. Neurological: Negative. Negative for weakness and numbness. Hematological: Negative. Psychiatric/Behavioral: Negative. Objective Physical Exam Constitutional: General: She is not in acute distress. Appearance: She is well-developed. HENT: Mouth/Throat: Pharynx: No oropharyngeal exudate. Eyes: Conjunctiva/sclera: Conjunctivae normal. Pupils: Pupils are equal, round, and reactive to light. Cardiovascular: Rate and Rhythm: Normal rate and regular rhythm. Heart sounds: Normal heart sounds. No murmur heard. Pulmonary: Effort: Pulmonary effort is normal. Breath sounds: Normal breath sounds. No wheezing or rales. Chest: Breasts: Right: No supraclavicular adenopathy. Left: No supraclavicular adenopathy. Abdominal: General: Bowel sounds are normal. Palpations: Abdomen is soft. There is no mass. Tenderness: There is no guarding or rebound. Musculoskeletal: General: Normal range of motion. Cervical back: Normal range of motion and neck supple. Comments: ROM right arm/shoulder Lymphadenopathy: Cervical: No cervical adenopathy. Upper Body: Right upper body: No supraclavicular adenopathy. Left upper body: No supraclavicular adenopathy. Skin: General: Skin is warm and dry. Neurological: Mental Status: She is alert and oriented to person, place, and time. Recent Results (from the past 72 hour(s)) CBC (with Diff) Result Value Ref Range WBC 5.6 RBC 3.87 Hemoglobin 12.6 Hematocrit 37.3 Platelets 225 Neutr Abs (ANC) 3.19 Comprehensive metabolic panel (non-fasting) Result Value Ref Range BUN 18 Creatinine 0.8 Sodium 142 Potassium 3.8 Calcium 9.0 Alk Phos 82 AST 14 ALT 22 BP 136/80 (Patient Position: Sitting) Pulse 80 Temp 36.3 ??C (97.3 ??F) (Temporal) Resp 18 Ht 165.1 cm (5' 5) Wt 82.3 kg (181 lb 6.4 oz) SpO2 99% BMI 30.19 kg/m?? 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 She had stage II disease with only intra-abdominal disease although I did not see a staging marrow performed. ?? She was treated with 4 doses of Rituxan with radiographicresponse by CT scan currently being watched off of therapy. Her counts are stable, No new adenopathy, no Night sweats. Generalized fatigue. ?? Today we again reviewed the natural history of low-grade lymphomas with the patient. Typically we can watch patients without treatment unless they develop symptoms. At this point she appears to be asymptomatic. ?? We will continue with Watchful waiting, no inidcation for treatmetn. History of B 12 deficiency - she will star lg high dose B12 and follow with PCP. I have also encouraged her to get her shoulder evaluated - she janeth will require at minimium some PT. Support and encouragement to continue her excellent lifestyle changes - NO more ETOH or smoking. Hoping to work on Diet and exercise next! Terese Traore will return to clinic in 4 months. she will call before then if any concerns or changes in status. documented in this encounter Plan of Treatment Upcoming Encounters Date Type Department Care Team (Late st Contact Info) Description 04/25/2024 8:00 AM EDT Office Visit Hematology/Oncology at [address] [phone] Lopez Jacome MD [facility] [address] [place] [address] documented as of this encounter Procedures Procedure Name Priority Date/Time Associated Diagnosis Comments CBC (WITH DIFF) Routine 12/09/2021 LACTATE DEHYDROGENASE Routine 12/09/2021 COMPREHENSIVE METABOLIC PANEL Routine 12/09/2021 CBC (WITH DIFF) Routine 09/21/2021 COMPREHENSIVE METABOLIC PANEL Routine 09/21/2021 CBC (WITH DIFF) Routine 08/25/2021 COMPREHENSIVE METABOLIC PANEL Routine 08/25/2021 VITAMIN B12 Routine 07/19/2021 documented in this encounter Results * Lactate Dehydrogenase (12/09/2021) Lactate Dehydrogenase 172 Blood 12/09/2021 Historical Provider CHEMISTRY ORDERAB LES * Comprehensive metabolic panel (non-fasting) (12/09/2021) Blood Urea Nitrogen 18 Creatinine 0.8 Sodium 142 Potassium 3.8 Calcium 9.0 Alkaline Phosphatase 82 Aspartate Aminotransferase 14 Alanine Aminotransferase 22 Blood 12/09/2021 Historical Provider CHEMISTRY ORDERAB LES * CBC (with Diff) (12/09/2021) White Blood Cell 5.6 Red Blood Cell 3.87 Hemoglobin 12.6 Hematocrit 37.3 Platelet 225 ANC 3.19 Blood 12/09/2021 Historical Provider HEMATOLOGY ORDERA BLES * Comprehensive metabolic panel (non-fasting) (09/21/2021) Pathologist [facility] [place] Blood Urea Nitrogen 14 Creatinine 0.7 Sodium 144 Potassium 3.6 Calcium 8.6 Alkaline Phosphatase 77 Aspartate Aminotransferase 13 Alanine Aminotransferase 22 Lactate Dehydrogenase 152 Blood 09/21/2021 Historical Provider CHEMISTRY ORDERAB LES * CBC (with Diff) (09/21/2021) Pathologist [facility] [place] White Blood Cell 4.81 Red Blood Cell 3.59 Hemoglobin 11.5 Hematocrit 35.7 Platelet 218 ANC 2.89 Blood 09/21/2021 Historical Provider HEMATOLOGY ORDERA BLES * Comprehensive metabolic panel (non-fasting) (08/25/2021) Pathologist [facility] [place] Blood Urea Nitrogen 12 Creatinine 0.8 Sodium 143 Potassium 3.9 Calcium 9.0 Protein, Total 7.3 Albumin 4.3 Bilirubin, Total 0.5 Alkaline Phosphatase 90 Aspartate Aminotransferase 16 Alanine Aminotransferase 26 Lactate Dehydrogenase 177 Blood 08/25/2021 Historical Provider CHEMISTRY ORDERAB LES * CBC (with Diff) (08/25/2021) Pathologist [facility] [place] White Blood Cell 6.16 Red Blood Cell 4.00 Hemoglobin 13.1 Hematocrit 39.4 Platelet 230 ANC 3.63 Blood 08/25/2021 Historical Provider HEMATOLOGY ORDERA BLES * Vitamin B12 (07/19/2021) Pathologist [facility] [place] Vitamin B12 496 Blood 07/19/2021 Historical Provider MD CHEMISTRY ORDERAB LES documented in this encounter Visit Diagnoses Diagnosis Follicular lymphoma, unspecified grade, unspecified body region Follicular lymphoma grade I of intra-abdominal lymph nodes Nodular lymphoma of intra-abdominal lymph nodes documented in this encounter Care Teams Roof Technician Relationship Specialty Start Date End Date Adelina Pagan, KATELIN [address] [place] [address] PCP - General Family Medicine 07/19/21 documented as of this encounter
--- OUTSIDE RECORDS SUMMARY | 2024-04-25 04:27 | XMS_ITS | Encounter Summary ---
Author Organization [facility] Address [facility] [place] [address] Care Team Providers Care Manager Housekeeping Name Role Phone Adelina Pagan APRN Primary Care Provider + [phone] Encounter Details Date Type Department Care Team (Latest Contact Info) Description 10/19/2023 Travel Social History Tobacco Use Types Packs/Day [...] place to sleep or slept in a intermediate (including now)? No 08/19/2021 Sex and Gender Information Value Date Recorded Sex Assigned at Female 09/02/2022 11:46 AM EST Gender Identity Not on file Sexual Orientation Straight 09/02/2022 11 :46 AM EST documented as of this encounter Plan of Treatment Upcoming Encounters Date Type Department Care Team (Late st Contact Info) Description 04/25/2024 8:00 AM EDT Office Visit Hematology/Oncology at [address] [phone] Lopez Jacome MD [facility] DR HEMATOLOGY [place] [address] documented as of this encounter Visit Diagnoses Not on filedocumented in this encounter Care Teams Manager Housekeeping Relationship Specialty Start Date End Date Adelina Pagan APRN [address] [place] [address] PCP - General Family Medicine 07/19/21 documented as of this encounter
--- OUTSIDE RECORDS SUMMARY | 2024-04-25 04:27 | XMS_ITS | Encounter Summary ---
Author Organization [facility] Address [facility] [place] [address] Care Team Providers Care Gear Cutting Machine Operator Name Role Phone Adelina Pagan APRN Primary Care Provider + [phone] Encounter Details Date Type Department Care Team (Late st Contact Info) Description 10/20/2022 1:00 PM EST Office Visit Hematology/Oncology at [address] [phone] Lopez Jacome MD [facility] [place] [address] Follicular non-Hodgkin's lymphoma Social History Tobacco Use [...] to sleep or slept in a senior living (including now)? No 08/19/2021 Sex and Gender Information Value Date Recorded Sex Assigned at Female 09/02/2022 11:46 AM EST Gender Identity Not on file Sexual Orientation Straight 09/02/2022 11 :46 AM EST documented as of this encounter Last Filed Vital Signs Vital Sign Reading Time Taken Comments Blood Pressure 117/62 10/20/2022 1:02 PM EST Pulse 77 10/20/2022 1:02 PM EST Temperature 36.5 ??C (97.7 ??F) 10/20/2022 1:02 PM ES T Respiratory Rate 16 10/20/2022 1:02 PM EST Oxygen Saturation 98% 10/20/2022 1:02 PM EST Inhaled Oxygen Concentration - - Weight 87.1 kg (192 lb) 10/20/2022 1:02 PM EST Height 165.1 cm (5' 5) 10/20/2022 1:02 PM EST Body Mass Index 31.95 10/20/2022 1:02 PM EST documented in this encounter Progress Notes * Lopez Jacome MD - 10/20/2022 1:00 PM EST Subjective Patient ID: Terese Traore is a 57 y.o. female here for f/u of Follicular NHL Patient Active Problem List Diagnosis ??? Follicular non-Hodgkin's lymphoma DX April 2020 In [place] follicular low-grade lymphoma. . She had stage II. Treated with Rituxan weekly for [address] scan 09/2021 with only small 12x8 mm lymph node HPI The patient is a 57-year-old female with a diagnosis of low-grade follicular lymphoma. She did receive a brief course of Rituxan at the time of diagnosis but since then has been followed without therapy. Since we last saw her there have been no major events. She remains off of cigarettes which is a huge success for her. No fevers chills sweats or weight loss. Still doing PT with her R shoulder. 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 Current Outpatient Medications: ??? estrogen, conjugated,-medroxyPROGESTERone (PREMPRO) 0.3-1.5 mg Tablet, Take 1 tablet by mouth daily., Disp: , Rfl: ??? losartan-hydrochlorothiazide (HYZAAR) 50-12.5 mg Tablet, Take 1 tablet by mouth daily., Disp: ,Rfl: ??? omeprazole (PriLOSEC) 40 mg Capsule, Delayed Release(E.C.), Take 40 mg by mouth daily., Disp: ,Rfl: Review of Systems Constitutional: Positive for fatigue. HENT: Negative. Eyes: Negative. Respiratory: Negative. Negative for cough and shortness of breath. Cardiovascular: Negative. Negative for chest pain, palpitations and leg swelling. Gastrointestinal: Negative. Negative for constipation, diarrhea, nausea and vomiting. Genitourinary: Negative. Musculoskeletal: Positive for arthralgias. Skin: Negative. Neurological: Negative. Negative for weakness and numbness. Hematological: Negative. Psychiatric/Behavioral: Negative. Objective BP 117/62 (Patient Position: Sitting) Pulse 77 Temp 36.5 ??C (97.7 ??F) (Temporal) Resp 16 Ht 165.1 cm (5' 5) Wt 87.1 kg (192 lb) SpO2 98% BMI 31.95 kg/m?? Physical Exam Constitutional: General: She is not [...] Normal breath sounds. No wheezing or rales. Abdominal: General: Bowel sounds are normal. Palpations: [...] and oriented to person, place, and time. She did not get her labs drawn Assessment and Plan 57-year-old female with a follicular low-grade lymphoma diagnosed 2019 in [place]. She had stage II disease with only intra-abdominal disease although I did not see a staging marrow performed. ?? She was treated with 4 doses of Rituxan with radiographic response by CT scan currently being watched off of therapy. No new adenopathy, no Night sweats. Generalized fatigue. ?? Today we again reviewed the natural history of low-grade lymphomas with the patient. Typically we can watch patients without treatment unless they develop symptoms. At this point she is asymptomatic. ?? We will continue with Watchful waiting, no indication for treatment. Terese Traore will return to clinic in 6 months. she will call before then if any concerns or changes in status. documented in this encounter Plan of Treatment Upcoming Encounters Date Type Department Care Team (Late st Contact Info) Description 04/25/2024 8:00 AM EDT Office Visit Hematology/Oncology at [address] [phone] Lopez Jacome MD [facility] [place] [address] documented as of this encounter Procedures Procedure Name Priority Date/Time Associated Diagnosis Comments CBC (WITH DIFF) Routine 08/25/2022 COMPREHENSIVE METABOLIC PANEL Routine 07/27/2022 documented in this encounter Results * CBC (with Diff) (08/25/2022) White Blood Cell 6.86 Red Blood Cell 3.80 Hemoglobin 12.1 Hematocrit 36.7 Platelet 257 ANC 4.53 Blood 08/25/2022 Historical Provider HEMATOLOGY ORDERA BLES * Comprehensive metabolic panel (non-fasting) (07/27/2022) Blood Urea Nitrogen 16 Creatinine 0.9 Sodium 142 Potassium 3.4 Calcium 8.8 Protein, Total 6.9 Albumin 3.9 Bilirubin, Total 0.3 Alkaline Phosphatase 88 Aspartate Aminotransferase 19 Alanine Aminotransferase 27 Iron 83 TIBC 368 Transferrin 23 Vitamin D Total 25 OH 27.6 Blood 07/27/2022 Historical Provider CHEMISTRY ORDERAB LES documented in this encounter Visit Diagnoses Diagnosis Follicular non-Hodgkin's lymphoma documented in this encounter Care Teams Gear Cutting Machine Operator Relationship Specialty Start Date End Date Adelina Pagan, KATELIN [address] [place] [address] PCP - General Family Medicine 07/19/21 documented as of this encounter
--- OUTSIDE RECORDS SUMMARY | 2024-04-25 04:27 | XMS_ITS | Encounter Summary ---
Author Organization [facility] Address [facility] [place] [address] Care Team Providers Care Float Builder Name Role Phone Adelina Pagan APRN Primary Care Provider + [phone] Encounter Details Date Type Department Care Team (Latest Contact Info) Description 12/22/2022 Travel Social History Tobacco Use Types Packs/Day [...] place to sleep or slept in a usp (including now)? No 08/19/2021 Sex and Gender Information Value Date Recorded Sex Assigned at Female 09/02/2022 11:46 AM EST Gender Identity Not on file Sexual Orientation Straight 09/02/2022 11 :46 AM EST documented as of this encounter Plan of Treatment Upcoming Encounters Date Type Department Care Team (Late st Contact Info) Description 04/25/2024 8:00 AM EDT Office Visit Hematology/Oncology at [address] [phone] Lopez Jacome MD [facility] DR HEMATOLOGY [place] [address] documented as of this encounter Visit Diagnoses Not on filedocumented in this encounter Care Teams Float Builder Relationship Specialty Start Date End Date Adelina Pagan APRN [address] [place] [address] PCP - General Family Medicine 07/19/21 documented as of this encounter
--- OUTSIDE RECORDS SUMMARY | 2024-04-25 04:27 | XMS_ITS | Clinical Summary ---
Author Organization [facility] Address [address] [place] [id number] Care Team Providers Care Change Director Name Role Phone Unknown, Provider Primary Care Provider Social History Tobacco Use Types Packs/Day Years Used Date Smoking Tobacco: Never Assessed Sex and Gender Information Value Date Recorded Sex Assigned at Not on file Gender Identity Not on file Sexual Orientation Not on file Plan of Treatment Health Maintenance Due Date Last Done Comments Hepatitis C Screen 1965 COVID-19 Vaccine (2022-24 season) 2023 RSV Immunization ( o r 60+ Years) (1 - 1-dose 60+ series) 2024 Care Teams Change Director Relationship Specialty Start Date End Date Unknown, Provider, PCP - General 07/11/15
--- OUTSIDE RECORDS SUMMARY | 2024-04-25 04:27 | XMS_ITS | Encounter Summary ---
Author Organization Formerly [facility] Address [facility] [place] [address] Care Team Providers Care Irrigationist Designer Name Role Phone Adelina Pagan APRN Primary Care Provider [phone] Reason for Visit * Consultation (Routine) - Closed Specialty Diagnoses / Procedures Referred By Adria menendez Referred To Contact Hematology and Oncology Diagnoses Follicular lymphoma FOLLICULAR LYMPHOMA Procedures TREATMENT OPTIONS Unknown None Stj Hem Onc Office [address] [place] [phone] Referral ID Status Reason Start Date Expiration Date Visits Re quested Visits Authorized [id number] Closed 06/17/2021 06/17/2022 1 1 Encounter Details Date Type Department Care Team (Late st Contact Info) Description 08/19/2021 9:00 AM EST Office Visit Hematology/Oncology at [address] [phone] Lopez Jacome MD [facility] DR HEMATOLOGY [place] [address] Jo Figueroa APRN [address] [place] [address] DR [place] [address] Follicular lymphoma grade I of intra-abdominal lymph nodes Social History Tobacco Use Types Packs/Day Years Used Date Smoking Tobacco: Never Assessed Overall Financial Resource Strain (CARDIA) Argenis r Date Recorded How hard is it [...] Sign Reading Time Taken Comments Blood Pressure 133/79 08/19/2021 9:00 AM EST Pulse 77 08/19/2021 9:00 AM EST Temperature 36.6 ??C (97.9 ??F) 08/19/2021 9:00 AM ES T Respiratory Rate 18 08/19/2021 9:00 AM EST Oxygen Saturation 98% 08/19/2021 9:00 AM EST Inhaled Oxygen Concentration - - Weight 78.5 kg (173 lb) 08/19/2021 9:00 AM EST Height 162.6 cm (5' 4) 08/19/2021 9:00 AM EST Body Mass Index 29.7 08/19/2021 9:00 AM EST documented in this encounter Progress Notes * Pam Phillip, RN - 08/19/2021 9:00 AM EST MEDICAL ONCOLOGY INITIAL NURSING ASSESSMENT ADVANCE DIRECTIVES: In ED[facility] [ ] Has documents [ ] Will bring in [ ] . No ACP docs IF NO: Advance Directive pamphlet provided : Referral to Care Management : PRESENTING SYSTEMS and PATHOLOGY: as per Dr. Jacome REVIEW OF SYSTEMS: as per Dr. Jacome Prior Radiotherapy: no[x ] Yes[ ]Site Date Facility Prior Chemotherapy: no[x ] Yes[ ] Drug: Oncologist- LastTreatment: NO: YES: Claustrophobia or requires sedation for MRIs x Allergy to CT or MRI contrast agent or iodine or shellfish x Diabetic and on metformin x Metal in body, implanted device, worked with metal, body piercings,braces x Dentures or hearing device x Pacemaker x Difficulty breathing while lying flat x Kidney problems/creatinine x Balance difficulty: [x ]no [ ]yes At risk for fall: [ x ] no [ ] yes If yes, actions implemented to prevent fall. Patient/family instructed to avoid independent ambulation. Use wheelchair and ask for assistance of staff while in the clinic. ADL [ x ] no limits [ ] needs dressing assistance [ ] needs meal assistance Assistive device:[ x ]none [ ]cane [ ]walker [ ]wheelchair [ ]other: explain PAIN ASSESSMENT: [0 ] out of 10 Location: Description: [ ] Dull [ ] Sharp [ ] Burning [ ] Throbbing [ ] Radiating [ ] Continuous [ ]Intermittent Aggravating Factors: [ ] Movement [ ] Position [ ]Immobility [ ]Other Alleviating Factors: [ ]Medication [ ] Positioning [ ] Other Current Pain Management Plan: [x ]Satisfied [ ] Not satisfied SOCIAL ASSESSMENT: See ED[facility] social assessment information entered. Support Systems: lives with spouse. Has supports transportation plan: [x ]private vehicle [ ] RCT needs Social Work referral [ ] Unknown at this time needs Social Work referral Barriers to treatment: none Referrals/Interventions: Will get labs, review during follow up LEARNING STYLE: Visual and verbal, wants written material and verbal discussion. TEACHING: __ NCI ???Chemotherapy and You?? and folder given . NA __ Specific chemotherapy literature provided and reviewed with patient * Lopez Jacome MD - 08/19/2021 9:00 AM EST Subjective Patient ID: Terese Traore is a 56 y.o. female. HPI 56-year-old female has been referred to the [facility] by JERAD Lambert for consultation and management of recently diagnosed follicular low-grade lymphoma. I had a chance to review the available records and interview and examined the patient. She recentlyrelocated from [place] to [place] to be near her mother. Near as I can tell the patient was being worked up for some abdominal symptoms. A CT scan of the pancreas done on 04/23 lymphadenopathy in the 1 to 2-1/2 cm range. She underwent a CT-guided needle biopsy of the retroperitoneal lymph nodes on 06/10/2020. This was interpreted as showing grade 1 follicular lymphoma. The patient was treated with 4 weekly doses of Rituxan completing that on 07/21/2020. A CT scan done 08/19/2020 showed improvement with the largest residual node measuring around 1 cm. She did go to [facility] for a second opinion where watchful waiting was endorsed. She has not been treated sincethen. Last CT scan appears to have been done about 6 months ago and was still stable. She has no symptoms. No fevers chills sweats or weight loss. She has not noted any lumps or bumps. Past medical history Hypertension social history GERD Asthma Smoking Anxiety History of B12 deficiency Current Outpatient Medications: ??? estrogen, conjugated,-medroxyPROGESTERone (PREMPRO) 0.3-1.5 mg Tablet, Take 1 tablet by mouth daily., Disp: , Rfl: ??? losartan-hydrochlorothiazide (HYZAAR) 50-12.5 mg Tablet, Take 1 tablet by mouth daily., Disp: ,Rfl: ??? omeprazole (PriLOSEC) 40 mg Capsule, Delayed Release(E.C.), Take 40 mg by mouth daily., Disp: ,Rfl: ??? ibuprofen (MOTRIN) 600 mg tablet, 600mg, PO, TID, prn, take with food, Disp: , Rfl: Allergies Allergen Reactions ??? Latex CIS - Anaphylaxis ??? Gloves, Latex CIS - Anaphylaxis ??? Latex Dams CIS - Anaphylaxis ??? Cat/Feline Products CIS - Hives ??? Percocet [Oxycodone-Acetaminophen] Itching and Nausea And Vomiting Social history Smokes about a half a pack a day She enjoys an occasional beer or wine single Recently moved from [place] Lives near her mother She is not , 4 children live in the area Family history Noncontributory Review of Systems Constitutional: Negative for fatigue, fever and unexpected weight change. HENT: Negative for nosebleeds. Respiratory: Negative for cough and shortness of breath. Cardiovascular: Negative for chest pain and palpitations. Gastrointestinal: Negative for abdominal pain and diarrhea. Musculoskeletal: Negative for back pain. Skin: Negative for rash. Neurological: Negative for speech difficulty. Hematological: Negative for adenopathy. Does not bruise/bleed easily. All other systems reviewed and are negative. Objective BP 133/79 (Patient Position: Sitting) Pulse 77 Temp 36.6 ??C (97.9 ??F) (Temporal) Resp 18 Ht 162.6 cm (5' 4) Wt 78.5 kg (173 lb) SpO2 98% BMI 29.70 kg/m?? Physical Exam Constitutional: General: She is not in acute distress. HENT: Mouth/Throat: Pharynx: No oropharyngeal exudate. Eyes: General: No scleral icterus. Cardiovascular: Rate and Rhythm: Normal rate and regular rhythm. Heart sounds: Normal heart sounds. Pulmonary: Effort: Pulmonary effort is normal. Breath sounds: Normal breath sounds. No wheezing. Abdominal: General: Bowel sounds are normal. Palpations: Abdomen is soft. There is no mass. Tenderness: There is no abdominal tenderness. Lymphadenopathy: Cervical: No cervical adenopathy. Skin: Findings: No rash. Neurological: Mental Status: She is alert and oriented to person, place, and time. Assessment & Plan 56-year-old female with a follicular low-grade lymphoma diagnosed last year in [place]. She had stage II disease with only intra-abdominal disease although I did not see a staging marrow performed. She was treated with 4 doses of Rituxan with radiographicresponse by CT scan currently being watched off of therapy. Today I reviewed the natural history of low-grade lymphomas with the patient. Typically we can watch patients without treatment unless they develop symptoms. At this point she appears to be asymptomatic. I did recommend that we go ahead and stage her now with a CT scan of the chest abdomen and pelvis and obtain labs including a CBC, CMP and LDH. This will help us establish a baseline. Watchful waiting is totally appropriate for this patient who is asymptomatic. I will let her know the results of the scans and plan to follow her back up in the [facility] in 3 to 4 months. documented in this encounter Plan of Treatment Upcoming Encounters Date Type Department Care Team (Late st Contact Info) Description 04/25/2024 8:00 AM EDT Office Visit Hematology/Oncology at [address] [phone] Lopez Jacome MD [facility] DR HEMATOLOGY [place] [address] documented as of this encounter Procedures Procedure Name Priority Date/Time Associated Diagnosis Comments CT SCAN (SCAN) 11/15/2023 12:00 AM EDT documented in this encounter Results * SCAN DOC: CT SCAN (11/15/2023 12:00 AM EDT) Anatomical Region Laterality Modality Other Narrative 11/15/2023 12:00 AM EDT Ordered by an unspecified provider. Scanning Provider MEDIA MGR SCAN EXT O RDR/RSLT documented in this encounter Visit Diagnoses Diagnosis Follicular lymphoma grade I of intra-abdominal lymph nodes Nodular lymphoma of intra-abdominal lymph nodes documented in this encounter Care Teams Irrigationist Designer Relationship Specialty Start Date End Date Adelina Pagan, AUTOMOBILE BODY REPAIRER [address] [place] [address] PCP - General Family Medicine 07/19/21 documented as of this encounter
--- OUTSIDE RECORDS SUMMARY | 2024-04-25 04:27 | XMS_ITS | Encounter Summary ---
Author Organization [facility] Address [address] [place] [address] Care Team Providers Care Investment Consultant Name Role Phone Unavailable Primary Care Provider Unavailabl e Encounter Details Date Type Department Care Team (Late st Contact Info) Description 11/14/2006 Results Only [facility] [address] [place] [address] Srinath Almaguer, DO [address] [place] [address] [phone] Social History Tobacco Use Types Packs/Day Years Used Date Smoking Tobacco: Never Assessed Sex and Gender Information Value Date Recorded Sex Assigned at Not on file Gender Identity Not on file Sexual Orientation Not on file documented as of this encounter Plan of Treatment Not on file documented as of this encounter Procedures Procedure Name Priority Date/Time Associated Diagnosis Comments SURGICAL PATHOLOGY Routine 11/14/2006 0:00 EDT documented in this encounter Results * SURGICAL PATHOLOGY (11/14/2006 0:00 EDT) Pathology Report: SURGICAL PATHOLOGY REPORT Reports generated via electronic interface contain original data; however they are lacking the format of the original report. Caution should be taken when reading/interpreti ng unformatted reports. Name: ? TERESE TRAORE ? Accession #: ? [id number] ? : ? 1965 (Age: 41) ??F ? Collect Date: ? 11/14/2006 ? Location: ? [facility] ? Receive Date: ? 11/15/2006 ? Provider: SRINATH ALMAGUER DO Copy to: ? Final Pathologic Diagnosis: A. ?Skin of neck, left anterior, shave biopsy: ? 1. ??Melanocytic nevus, intradermal type. ? B. ?? Skin of breast, left, shave biopsy: ?1. ??Melanocytic nevus, intradermal type. Comment: ? (A & B): Sections are of a papule with mild epidermal hyperplasia and hyperkeratosis. ??There is a proliferation of melanocytes within the dermis. ??The proliferation consists of nests, cords, and strands that diminish in size with descent into the dermis. ??The melanocytes are slightly enlarged but generally have round-oval nuclei and a moderate amount of cytoplasm. ??The melanocytes show airport shuttle driver maturation. ??(Dr. Kerns)/[facility] Document reviewed and electronically signed by: Jaki Kerns MD Report ??Date: 11/20/2006 10:50 By the signature above, the attending physician certifies that he/she has personally conducted a gross and/or microscopic examination of the described specimens and rendered or confirmed the above diagnosis. Specimen(s) Received: A. ?Nevus L ant neck (#1) B. ? Nevus L breast (#2) Clinical History: ? Intradermal Nevus (neck and breast) Gross Description: ? Received in formalin labelled Dezell and neck is a shave biopsy of a mottled magaña and magaña-brown papule measuring 0.5 x 0.4 x 0.2 cm. The specimen is bisected and submitted entirely as (A). Received in formalin labelled Dezell and breast is a shave biopsy of a mottled magaña and magaña-brown papule measuring 0.6 x 0.5 x 0.3 cm. The specimen is bisected and submitted entirely as (B). (Juliocesar Villela-ZAIRA)/lesa End of Report KALI NÚÑEZ 11/14/2006 11/15/2006 4:3 5 EDT Srinath Almaguer DO PATHOLOGY ORDERABLES KALI NÚÑEZ [address] [place] [address] documented in this encounter Visit Diagnoses Not on filedocumented in this encounter
--- OUTSIDE RECORDS SUMMARY | 2024-04-25 04:27 | XMS_ITS | Referral Summary ---
Author Organization [facility] Address [address] [place] [address] Care Team Providers Care Telex Operator Name Role Phone Unknown, Provider Primary Care Provider [phone] Social History Tobacco Use Types Packs/Day Years Used Date Smoking Tobacco: Never Assessed Sex and Gender Information Value Date Recorded Sex Assigned at Not on file Gender Identity Not on file Sexual Orientation Not on file Plan of Treatment Not on file Care Teams Telex Operator Relationship Specialty Start Date End Date Unknown, Provider, PCP - General 07/11/15
--- OUTSIDE RECORDS SUMMARY | 2024-04-25 04:27 | XMS_ITS | Encounter Summary ---
Author Organization [facility] Address [address] [place] [address] Care Team Providers Care Slat Basket Maker Helper Name Role Phone Unknown, Provider Primary Care Provider Encounter Details Date Type Department Care Team (Late st Contact Info) Description 08/16/2023 Lab Requisition [facility] Pathology & Laboratory Medicine - [facility] [address] [place] [address] [address] [place], [place] [id number] Encounter for other general examination Social History Tobacco Use Types Packs/Day Years Used Date Smoking Tobacco: Never Assessed Sex and Gender Information Value Date Recorded Sex Assigned at Not on file Gender Identity Not on file Sexual Orientation Not on file documented as of this encounter Plan of Treatment Not on file documented as of this encounter Procedures Procedure Name Priority Date/Time Associated Diagnosis Comments PAP TEST Today 08/15/2023 16:15 EST Encounter for other general examination documented in this encounter Results * PAP TEST (08/15/2023 16:15 EST) Specimens A. Cervix and/or Endocervix , ThinPrep Imaging System with Manual Evaluation 08/23/2023 15:[address] [facility] Specimen Adequacy Satisfactory for Evaluation - transformation zone component present 08/23/2023 15:[address] [facility] General Categorization Negative for intraepithelial lesion or malignancy 08/23/2023 15:[address] [facility] Attestation . 08/23/2023 15:[address] [facility] at 1533 Clinical History See below 08/23/20 15:[address] [facility] Performing Lab [facility] 08/23/2023 15:[address] [facility] Scanned Images 08/23/2023 15:[address] [facility] Pap Test CERVIX UTERI STRUCTURE / Unknown 08/15/2023 16:15 EST 08/16/2023 13:49 EST Deepthi Oliveira [facility] [address] [place] [address] documented in this encounter Visit Diagnoses Diagnosis Encounter for other general examination documented in this encounter Care Teams Slat Basket Maker Helper Relationship Specialty Start Date End Date Unknown, Provider, PCP - General 07/11/15 documented as of this encounter
--- OUTSIDE RECORDS SUMMARY | 2024-04-25 04:27 | XMS_ITS | Encounter Summary ---
Author Organization [facility] Address [facility] [place] [address] Care Team Providers Care Water Mangle Tender Name Role Phone Adelina Pagan APRN Primary Care Provider [phone] Encounter Details Date Type Department Care Team (Latest Contact Info) Description 10/20/2022 Travel Social History Tobacco Use Types Packs/Day [...] 8:00 AM EDT Office Visit Hematology/Oncology at [address] [phone] Lopez Jacome MD [facility] DR HEMATOLOGY [place] [address] documented as of this encounter Visit Diagnoses Not on filedocumented in this encounter Care Teams Water Mangle Tender Relationship Specialty Start Date End Date Adelina Pagan APRN [address] [place] [address] PCP - General Family Medicine 07/19/21 documented as of this encounter
--- OUTSIDE RECORDS SUMMARY | 2024-04-25 04:27 | XMS_ITS | Encounter Summary ---
Author Organization [facility] [place] [address] Care Team Providers Care Pyrotechnic Assembler Name Role Phone Adelina Pagan CALL CENTER RECRUITER Primary Care Provider [phone] Encounter Details Date Type Department Care Team (Late st Contact Info) Description 10/27/2023 Telephone Hematology and Oncology at [facility] [place] [phone] Jaja Smiley Social History Tobacco Use Types Packs/Day Years [...] place to sleep or slept in a assisted (including now)? No 08/19/2021 Sex and Gender Information Value Date Recorded Sex Assigned at Female 09/02/2022 11:46 AM EST Gender Identity Not on file Sexual Orientation Straight 09/02/2022 11 :46 AM EST documented as of this encounter Miscellaneous Notes * Telephone Encounter - Jaja Manley - 10/27/2023 2:00 PM EST Procedure Prior Authorization Procedure/Cpt: 24403, [address] Ct c/a/p Rationale: C82.90 Health Plan: [facility] Authorizing Vendor: Service Order/Case ID: Call Ref #: [id number] Effective Date: Status: PA not required Rendering Facility: [facility] documented in this encounter Plan of Treatment Upcoming Encounters Date Type Department Care Team (Late st Contact Info) Description 04/25/2024 8:00 AM EDT Office Visit Hematology/Oncology at [address] [phone] Lopez Jacome MD [facility] DR HEMATOLOGY [place] [address] documented as of this encounter Visit Diagnoses Not on filedocumented in this encounter Care Teams Pyrotechnic Assembler Relationship Specialty Start Date End Date Adelina Pagan APRN [address] [place] [address] PCP - General Family Medicine 07/19/21 documented as of this encounter
--- OUTSIDE RECORDS SUMMARY | 2024-04-25 04:27 | XMS_ITS | Encounter Summary ---
Author Organization [facility] Address [facility] [place] [address] Care Team Providers Care Aircraft Air Conditioning Mechanic Name Role Phone Adelina Pagan APRN Primary Care Provider + [phone] Encounter Details Date Type Department Care Team (Latest Contact Info) Description 04/20/2023 Travel Social History Tobacco Use Types Packs/Day [...] place to sleep or slept in a long term (including now)? No 08/19/2021 Sex and Gender Information Value Date Recorded Sex Assigned at Female 09/02/2022 11:46 AM EST Gender Identity Not on file Sexual Orientation Straight 09/02/2022 11 :46 AM EST documented as of this encounter Plan of Treatment Upcoming Encounters Date Type Department Care Team (Late st Contact Info) Description 04/25/2024 8:00 AM EDT Office Visit Hematology/Oncology at [address] [phone] Lopez Jacome MD [facility] DR HEMATOLOGY [place] [address] documented as of this encounter Visit Diagnoses Not on filedocumented in this encounter Care Teams Aircraft Air Conditioning Mechanic Relationship Specialty Start Date End Date Adelina Pagan APRN [address] [place] [address] PCP - General Family Medicine 07/19/21 documented as of this encounter
--- OUTSIDE RECORDS SUMMARY | 2024-04-25 04:27 | XMS_ITS | Encounter Summary ---
Author Organization [facility] [place] [address] Care Team Providers Care Production Control Supervisor Name Role Phone Adelina Pagan KATELIN Primary Care Provider + [phone] Reason for Visit * Reason Onset Date Comments Results 10/07/2021 Encounter Details Date Type Department Care Team (Late st Contact Info) Description 10/07/2021 Telephone Hematology Oncology at [address] [phone] Shira Prado, RN Results Social History Tobacco Use Types Packs/Day Years Used Date Smoking Tobacco: Never Assessed Overall Financial Resource Strain (CARDIA) Answe r [...] place to sleep or slept in a snf (including now)? No 08/19/2021 Sex and Gender Information Value Date Recorded Sex Assigned at Female 09/02/2022 11:46 AM EST Gender Identity Not on file Sexual Orientation Straight 09/02/2022 11 :46 AM EST documented as of this encounter Miscellaneous Notes * Telephone Encounter - Kelsi Fraga RN - 10/08/2021 9:23 AM EST Called Terese and reviewed Shira Prado RN note with her from yesterday. Patient verbalized understanding that the scan looks ok and we will continue to monitor. * Telephone Encounter - Shira Praod RN - 10/07/2021 1:[address] scan reviewed by Dr. Jacome,he reports there are no significant nodes and we will continue with observation only. I called to report this to Terese but had to leave a message for her to call back. ----- Message from Ashwini Jurado RN sent at 10/06/2021 2:47 PM EST ----- Regarding: FW: CT results Can you please check with Naa if he called her or not? A-L ----- Message ----- From: Elis Saldana Sent: 10/06/2021 11:19 AM EST To: Lopez Jacome MD, Jo Figueroa APRN, # Subject: CT results Terese called asking to speak with someone regarding her CT scan results from 09/21 that had been done at [facility]. It appears we have the images and report available in [facility] for you to review. Could someone reach out to her with results when time allows at [phone]. Hector Gillis documented in this encounter Plan of Treatment Upcoming Encounters Date Type Department Care Team (Late st Contact Info) Description 04/25/2024 8:00 AM EDT Office Visit Hematology/Oncology at [address] [phone] Lopez Jacome MD [facility] HEMATOLOGY [place] [address] documented as of this encounter Visit Diagnoses Not on filedocumented in this encounter Care Teams Production Control Supervisor Relationship Specialty Start Date End Date Adelina Pagan APRN [address] [place] [address] PCP - General Family Medicine 07/19/21 documented as of this encounter
--- OUTSIDE RECORDS SUMMARY | 2024-04-25 04:27 | XMS_ITS | Encounter Summary ---
Author Organization [facility] [place] [place] [address] Care Team Providers Care Drywaller Name Role Phone JohanaAdelina griffin KATELIN Primary Care Provider + [phone] Encounter Details Date Type Department Care Team (Late st Contact Info) Description 12/07/2021 Telephone Hematology/Oncology at [address] [phone] Judith Nunez Social History Tobacco Use Types Packs/Day Years [...] 8:00 AM EDT Office Visit Hematology/Oncology at [address] [phone] Lopez Jacome MD [facility] [address] [place] [address] documented as of this encounter Visit Diagnoses Not on filedocumented in this encounter Care Teams Drywaller Relationship Specialty Start Date End Date Adelina Pagan APRN [address] [place] [address] PCP - General Family Medicine 07/19/21 documented as of this encounter
--- OUTSIDE RECORDS SUMMARY | 2024-04-25 04:27 | XMS_ITS | Encounter Summary ---
Author Organization [facility] Address [facility] [place] [address] Care Team Providers Care Cloth Calender Name Role Phone Adelina Pagan APRN Primary Care Provider + [phone] Encounter Details Date Type Department Care Team (Latest Contact Info) Description 10/26/2023 Travel Social History Tobacco Use Types Packs/Day [...] place to sleep or slept in a fdc (including now)? No 08/19/2021 Sex and Gender Information Value Date Recorded Sex Assigned at Female 09/02/2022 11:46 AM EST Gender Identity Not on file Sexual Orientation Straight 09/02/2022 11 :46 AM EST documented as of this encounter Plan of Treatment Upcoming Encounters Date Type Department Care Team (Late st Contact Info) Description 04/25/2024 8:00 AM EDT Office Visit Hematology/Oncology at [address] [phone] Lopez Jacome MD [facility] DR [place] [address] documented as of this encounter Visit Diagnoses Not on filedocumented in this encounter Care Teams Cloth Calender Relationship Specialty Start Date End Date Adelina Pagan APRN [address] [place] [address] PCP - General Family Medicine 07/19/21 documented as of this encounter
--- OUTSIDE RECORDS SUMMARY | 2024-04-25 04:27 | XMS_ITS | Encounter Summary ---
Author Organization [facility] [place] [address] Care Team Providers Care Check Services Clerk Name Role Phone Adelina Pagan APRN Primary Care Provider [phone] Encounter Details Date Type Department Care Team (Late st Contact Info) Description 09/21/2021 4:35 PM EST Ancillary Procedure Radiology Library [place] [phone] Adelina Pagan APRN [address] [place], [place] [id number] Social History Tobacco Use Types Packs/Day Years [...] 8:00 AM EDT Office Visit Hematology/Oncology at [address] [phone] Lopez Jacome MD [facility] [address] [place] [address] documented as of this encounter Procedures Procedure Name Priority Date/Time Associated Diagnosis Comments FILM LIBRARY STORAGE ONLY CT CHEST ABDOMEN PELVIS Routine 09/21/2021 4:33 PM EST documented in this encounter Results * Film Library- Storage Only CT Chest Abdomen Pelvis (09/21/2021 4:33 PM EST) Narrative RAD - 09/21/2021 4:33 PM EST This exam is auto-finalizing. It's purpose is for storage only. Adelina Pagan APRN [place] FILM LIBRARY ORD ERABLES [place], [place] documented in this encounter Visit Diagnoses Not on filedocumented in this encounter Care Teams Check Services Clerk Relationship Specialty Start Date End Date Adelina Pagan APRN [address] [place] [address] PCP - General Family Medicine 07/19/21 documented as of this encounter
--- OUTSIDE RECORDS SUMMARY | 2024-04-25 04:27 | XMS_ITS | Encounter Summary ---
Author Organization [facility] Address [facility] [place] [address] Care Team Providers Care High School Band Director Name Role Phone Adelina Pagan APRN Primary Care Provider + [phone] Encounter Details Date Type Department Care Team (Late st Contact Info) Description 12/29/2022 2:00 PM EDT Office Visit Hematology/Oncology at [address] [phone] Lopez Jacome MD [facility] DR [place] [address] Follicular non-Hodgkin's lymphoma Social History Tobacco Use [...] Sign Reading Time Taken Comments Blood Pressure 109/66 12/29/2022 2:07 PM EDT Pulse 61 12/29/2022 2:07 PM EDT Temperature 36.7 ??C (98.1 ??F) 12/29/2022 2:07 PM ED T Respiratory Rate 20 12/29/2022 2:07 PM EDT Oxygen Saturation 100% 12/29/2022 2:07 PM EDT Inhaled Oxygen Concentration - - Weight 87.2 kg (192 lb 3.2 oz) 12/29/2022 2:07 P M EDT Height 165.1 cm (5' 5) 12/29/2022 2:07 PM EDT Body Mass Index 31.98 12/29/2022 2:07 PM EDT documented in this encounter Progress Notes * Lopez Jacome MD - 12/29/2022 2:00 PM EDT Subjective Patient ID: Terese Traore is a 57 y.o. female here for f/u of Follicular NHL Patient Active Problem List Diagnosis ??? 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 . She had stage II. Treated with Rituxan weekly for [address] scan 09/2021 with only small 12x8 mm lymph node HPI The patient is a 57-year-old female with a diagnosis of low-grade follicular lymphoma. She did receive a brief course of Rituxan in [place] at the time of diagnosis but since then has been followed without therapy. Since we last saw her there have been no major events. She remains off of cigarettes which is a huge success for her. No fevers chills sweats or weight loss. She does have some concerns about her lowincome and losing her insurance Current Outpatient Medications: ??? estrogen, conjugated,-medroxyPROGESTERone (PREMPRO) [...] numbness. Hematological: Negative. Psychiatric/Behavioral: Negative. Objective BP 109/66 (Patient Position: Sitting) Pulse 61 Temp 36.7 ??C (98.1 ??F) (Temporal) Resp 20 Ht 165.1 cm (5' 5) Wt 87.2 kg (192 lb 3.2 oz) SpO2 100% BMI 31.98 kg/m?? Physical Exam Constitutional: General: She is [...] Normal range of motion and neck supple. Lymphadenopathy: Cervical: No cervical adenopathy. Upper Body: Right upper body: No supraclavicular adenopathy. Left upper body: No supraclavicular adenopathy. Skin: General: Skin is warm and dry. Neurological: Mental Status: She is alert and oriented to person, place, and time. WBC 7.4, hgb 12.0, plts 247 Cr 0.9, LDH 173 Assessment and Plan 57-year-old female with a follicular low-grade lymphoma diagnosed 2019 in [place]. She had stage II disease with only [...] 8:00 AM EDT Office Visit Hematology/Oncology at [address] [phone] Lopez Jacome MD [facility] DR [place]EMATOLOG[place] [address] documented as of this encounter Procedures Procedure Name Priority Date/Time Associated Diagnosis Comments CBC (WITH DIFF) Routine 12/29/2022 COMPREHENSIVE METABOLIC PANEL Routine 12/29/2022 documented in this encounter Results * Comprehensive metabolic panel (non-fasting) (12/29/2022) Glucose 106 Blood Urea Nitrogen 13 Creatinine 0.9 Sodium 140 Potassium 3.5 Calcium 9.0 Protein, Total 7.3 Albumin 4.0 Bilirubin, Total 0.3 Alkaline Phosphatase 90 Aspartate Aminotransferase 19 Alanine Aminotransferase 33 Lactate Dehydrogenase 173 Blood 12/29/2022 Historical Provider CHEMISTRY ORDERAB LES * CBC (with Diff) (12/29/2022) White Blood Cell 7.45 Red Blood Cell 3.81 Hemoglobin 12.0 Hematocrit 36.1 Platelet 247 ANC 4.51 Blood 12/29/2022 Historical Provider HEMATOLOGY ORDERA BLES documented in this encounter Visit Diagnoses Diagnosis Follicular non-Hodgkin's lymphoma documented in this encounter Care Teams High School Band Director Relationship Specialty Start Date End Date Adelina Pagan APRN [address] [place] [address] PCP - General Family Medicine 07/19/21 documented as of this encounter
--- OUTSIDE RECORDS SUMMARY | 2024-04-25 04:27 | XMS_ITS | Encounter Summary ---
Author Organization [facility] Address [facility] [place] [address] Care Team Providers Care Supervisor Inspecting Name Role Phone Adelina Pagan APRN Primary Care Provider + [phone] Encounter Details Date Type Department Care Team (Latest Contact Info) Description 04/13/2023 Travel Social History Tobacco Use Types Packs/Day [...] 8:00 AM EDT Office Visit Hematology/Oncology at [address] [phone] Lopez Jacome MD [facility] DR HEMATOLOGY [place] [address] documented as of this encounter Visit Diagnoses Not on filedocumented in this encounter Care Teams Supervisor Inspecting Relationship Specialty Start Date End Date Adelina Pagan APRN [address] [place] [address] PCP - General Family Medicine 07/19/21 documented as of this encounter
--- OUTSIDE RECORDS SUMMARY | 2024-04-25 04:27 | XMS_ITS | Encounter Summary ---
Author Organization [facility] Address [facility] [place] [address] Care Team Providers Care Legal Counsel Name Role Phone NatalioAdelina higuera KATELIN Primary Care Provider [phone] Encounter Details Date Type Department Care Team (Late st Contact Info) Description 04/14/2022 11:30 AM EDT Office Visit Hematology/Oncology at [address] [phone] Lopez Jacome MD [facility] DR [place] [address] Tyra Kaur APRN [facility] DR [place] [address] Follicular non-Hodgkin's lymphoma Social History Tobacco Use [...] Sign Reading Time Taken Comments Blood Pressure 138/80 04/14/2022 11:27 AM EDT Pulse 66 04/14/2022 11:27 AM EDT Temperature 36.7 ??C (98 ??F) 04/14/2022 11:27 AM EDT Respiratory Rate 20 04/14/2022 11:27 AM EDT Oxygen Saturation 99% 04/14/2022 11:27 AM EDT Inhaled Oxygen Concentration - - Weight 85.7 kg (189 lb) 04/14/2022 11:27 AM EDT Height 165.1 cm (5' 5) 04/14/2022 11:27 AM EDT Body Mass Index 31.45 04/14/2022 11:27 AM EDT documented in this encounter Progress Notes * Lopez Jacome MD - 04/14/2022 11:30 AM EDT Subjective Patient ID: Terese Traore is a 57 y.o. female here for f/u of Follicular NHL Patient Active Problem List Diagnosis ??? 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 . She had stage II. Treated with Rituxan weekly for [address] scan 09/2021 with only small 12x8 mm lymph node HPI The patient is a 57-year-old female with a diagnosis of low-grade follicular lymphoma. She did receive a brief course of Rituxan the time of diagnosis but since then has been followed without therapy. Since we last saw her there have been no major events. She remains off of cigarettes which is a huge success for her. 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 Review of Systems Constitutional: Positive for fatigue. [...] and oriented to person, place, and time. No results found for this or any previous visit (from the past 72 hour(s)). BP 138/80 (Patient Position: Sitting) Pulse 66 Temp 36.7 ??C (98 ??F) (Temporal) Resp 20 Ht165.1 cm (5' 5) Wt 85.7 kg (189 lb) SpO2 99% BMI 31.45 kg/m?? CT scan from September reviewed - No significant disease progression Assessment and Plan 57-year-old female with a follicular low-grade lymphoma diagnosed 2019 in [place]. She had stage II disease with only [...] AM EDT Office Visit Hematology/Oncology at [address] [phone] Lopez Jacome MD [facility] DR [place] [address] documented as of this encounter Procedures Procedure Name Priority Date/Time Associated Diagnosis Comments CBC (WITH DIFF) Routine 04/14/2022 COMPREHENSIVE METABOLIC PANEL Routine 04/14/2022 documented in this encounter Results * Comprehensive metabolic panel (non-fasting) (04/14/2022) Blood Urea Nitrogen 13 Creatinine 0.8 Sodium 143 Potassium 3.6 Calcium 8.6 Alkaline Phosphatase 82 Aspartate Aminotransferase 17 Alanine Aminotransferase 27 Lactate Dehydrogenase 155 Blood 04/14/2022 Historical Provider CHEMISTRY ORDERAB LES * (ABNORMAL) CBC (with Diff) (04/14/2022) White Blood Cell 5.68 Red Blood Cell 3.40(L) Hemoglobin 11.1(L) Hematocrit 33.2(L) Platelet 236 ANC 3.57 Blood 04/14/2022 Historical Provider HEMATOLOGY ORDERA BLES documented in this encounter Visit Diagnoses Diagnosis Follicular non-Hodgkin's lymphoma documented in this encounter Care Teams Legal Counsel Relationship Specialty Start Date End Date Adelina Pagan, PHOTOGRAPHS CURATOR [address] [place] [address] PCP - General Family Medicine 07/19/21 documented as of this encounter
--- OUTSIDE RECORDS SUMMARY | 2024-04-25 04:27 | XMS_ITS | Encounter Summary ---
Author Organization [facility] Address [facility] [place] [address] Care Team Providers Care Fixed Income Trading Vice President Name Role Phone Nataliodavida Adelina KATELIN Primary Care Provider [phone] Encounter Details Date Type Department Care Team (Late st Contact Info) Description 04/20/2023 8:00 AM EDT Office Visit Hematology/Oncology at [address] [phone] Lopez Jacome MD [facility] DR HEMATOLOGY [place] [address] Tyra Kaur APRN [facility] DR HEMATOLOGY [place] [address] Follicular non-Hodgkin's lymphoma Social History Tobacco Use [...] place to sleep or slept in a [place] health care facility (including now)? No 08/19/2021 Sex and Gender Information Value Date Recorded Sex Assigned at Female 09/02/2022 11:46 AM EST Gender Identity Not on file Sexual Orientation Straight 09/02/2022 11 :46 AM EST documented as of this encounter Last Filed Vital Signs Vital Sign Reading Time Taken Comments Blood Pressure 134/65 04/20/2023 8:02 AM EDT Pulse 74 04/20/2023 8:02 AM EDT Temperature 36.3 ??C (97.3 ??F) 04/20/2023 8:02 AM ED T Respiratory Rate 16 04/20/2023 8:02 AM EDT Oxygen Saturation 97% 04/20/2023 8:02 AM EDT Inhaled Oxygen Concentration - - Weight 89.8 kg (198 lb) 04/20/2023 8:02 AM EDT Height 165.1 cm (5' 5) 04/20/2023 8:02 AM EDT Body Mass Index 32.95 04/20/2023 8:02 AM EDT documented in this encounter Progress Notes * Lopez Jacome MD - 04/20/2023 8:00 AM EDT Subjective Patient ID: Terese Traore is a 58 y.o. female here for f/u of Follicular NHL Patient Active Problem List Diagnosis Follicular non-Hodgkin's lymphoma DX April 2020 In [place] follicular low-grade lymphoma. . She had stage II. Treated with Rituxan weekly for [address] scan 09/2021 with only small 12x8 mm lymph node HPI The patient is a 58-year-old female with a diagnosis of low-grade follicular lymphoma. She did receive a brief course of Rituxan in [place] at the time of diagnosis but since then has been followed without therapy. Since we last saw her there have been no major events. She remains off of cigarettes. No fevers chills sweats or weight loss. In fact some ongoing weight gain since off cigarettes. Still with sweats.She does need a tooth extracted. Current Outpatient Medications: estrogen, conjugated,-medroxyPROGESTERone (PREMPRO) 0.3-1.5 mg Tablet, Take 1 tablet by mouth daily., Disp: , Rfl: losartan-hydrochlorothiazide (HYZAAR) 50-12.5 mg Tablet, Take 1 tablet by mouth daily., Disp: , Rfl: omeprazole (PriLOSEC) 40 mg Capsule, Delayed Release(E.C.), Take 40 mg by mouth daily., Disp: , Rfl: Review of Systems Constitutional: Positive for fatigue. HENT: Negative. Eyes: Negative. Respiratory: Negative. Negative for cough and shortness of breath. Cardiovascular: Negative. Negative for chest pain, palpitations and leg swelling. Gastrointestinal: Negative. Negative for constipation, diarrhea, nausea and vomiting. Genitourinary: Negative. Musculoskeletal: Positive for arthralgias. Skin: Negative. Neurological: Negative. Negative for weakness and numbness. Hematological: Negative. Psychiatric/Behavioral: Negative. Objective BP 134/65 (Patient Position: Sitting) Pulse 74 Temp 36.3 ??C (97.3 ??F) (Temporal) Resp 16 Ht 165.1 cm (5' 5) Wt 89.8 kg (198 lb) SpO2 97% BMI 32.95 kg/m?? Physical Exam Constitutional: General: She is [...] and oriented to person, place, and time. White count 5.4, ANC 3.1, hemoglobin 12.1, platelets 254 Creatinine 0.8, LDH 175 Assessment and Plan 58-year-old female with a follicular low-grade lymphoma diagnosed 2019 in [place]. She had stage II disease with only intra-abdominal disease although I did not see a staging marrow performed. She was treated with 4 doses of Rituxan with radiographic response by CT scan currently being watched off of therapy. No new palpable adenopathy. We reviewed the natural history of low-grade lymphomas with the patient. Typically we can watch patients without treatment unless they develop symptoms. At this point she is asymptomatic. We will continue with watchful waiting, no indication for treatment. Anticipate another image study09/28 if she remains without symptoms or findings. Terese Traore will return to clinic in 6 months. she will call before then if any concerns or changes in status. documented in this encounter Plan of Treatment Upcoming Encounters Date Type Department Care Team (Late st Contact Info) Description 04/25/2024 8:00 AM EDT Office Visit Hematology/Oncology at [address] [phone] Lopez Jacome MD [facility] DR HEMATOLOGY [place] [address] Scheduled Orders Name Type Priority Associated Diagnoses Orde r Schedule CBC (with Diff) Lab STAT Follicular non-Hodgkin's lymphoma Expected: 10/21/2023, Expires: 04/21/2024 Comprehensive metabolic panel (non-fasting) Lab STAT Follicular non-Hodgkin's lymphoma Expected: 10/21/2023, Expires: 04/21/2024 Lactate Dehydrogenase Lab STAT Follicular non-Hodgkin's lymphoma Expected: 10/21/2023, Expires: 04/21/2024 documented as of this encounter Procedures Procedure Name Priority Date/Time Associated Diagnosis Comments CBC (WITH DIFF) Routine 04/20/2023 COMPREHENSIVE METABOLIC PANEL Routine 04/20/2023 documented in this encounter Results * Comprehensive metabolic panel (non-fasting) (04/20/2023) Blood Urea Nitrogen 14 Creatinine 0.8 Sodium 144 Potassium 3.7 Calcium 9.0 Protein, Total 7.1 Albumin 3.9 Bilirubin, Total 0.4 Alkaline Phosphatase 98 Aspartate Aminotransferase 16 Alanine Aminotransferase 25 Lactate Dehydrogenase 175 Blood 04/20/2023 Historical Provider CHEMISTRY ORDERAB LES * CBC (with Diff) (04/20/2023) White Blood Cell 5.40 Red Blood Cell 3.78 Hemoglobin 12.1 Hematocrit 36.6 Platelet 254 ANC 3.13 Blood 04/20/2023 Historical Provider HEMATOLOGY ORDERA BLES documented in this encounter Visit Diagnoses Diagnosis Follicular non-Hodgkin's lymphoma documented in this encounter Care Teams Fixed Income Trading Vice President Relationship Specialty Start Date End Date Adelina Pagan, KATELIN [address] [place] [address] PCP - General Family Medicine 07/19/21 documented as of this encounter
--- OUTSIDE RECORDS SUMMARY | 2024-04-25 04:27 | XMS_ITS | Encounter Summary ---
Author Organization [facility] [place] [address] Care Team Providers Care Exhaust And Muffler Repairer Name Role Phone Nataliodavida Adelina KATELIN Primary Care Provider [phone] Reason for Referral * Diagnostic Test (Routine) - Pending Review Specialty Diagnoses / Procedures Referred By Adria menendez Referred To Contact Radiology Diagnoses Follicular non-Hodgkin's lymphoma Procedures CT Chest Abdomen Pelvis w Contrast (Generic) Mi Capps APRN [address] [place] [address] [place] [address] Referral ID Status Reason Start Date Expiration Date Visits Requested Visits Authorized [id number] Pending Review Specialty Service Requested 10/26/2023 04/25/2025 1 1 Encounter Details Date Type Department Care Team (Late st Contact Info) Description 10/26/2023 9:30 AM EST Office Visit Hematology/Oncology at [address] [phone] Lopez Jacome MD [facility] [address] [place] [address] Tyra Kaur APRN [facility] [place] [address] Follicular non-Hodgkin's lymphoma Social History Tobacco Use [...] Mass Index 33.75 10/26/2023 9:32 AM EST documented in this encounter Progress Notes * Mi Capps, DIV[employer]ITY INTERN - 10/26/2023 9:30 AM EST Subjective Patient ID: Terese Traore is a 58 y.o. 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 . She had stage II. Treated with Rituxan weekly for [address] scan 09/2021 with only small 12x8 mm lymph node HPI The patient is a 58-year-old female with a diagnosis of low-grade follicular lymphoma. She did receive a brief course of Rituxan in [place] at the time of diagnosis in 04/2020 but since then has been followed without therapy. She has been feeling off for the past few months. She reports increased fatigue, achiness all over and significant back pain. She has some swelling in her legs and feet intermittently as well. She saw her PCP and trialed toradol and gabapentin which helped a little bit but she is not currently taking. Pain improves a bit with walking. She has a referral to PT. She is so tired that she is struggling to work and plans to take the week off next week.. She reports frequent night sweats, not drenching but enough to wake her up most nights. She occasionally feels feverish during the day as well. No measurable fevers. She is concerned about the way she is feeling. She quit smoking 2yrs ago and has gained some weight since then. She is frustrated with her weight gain. Current Outpatient Medications: conj estrogens-bazedoxifene (Duavee) 0.45-20 mg tablet, Take by mouth daily., Disp: , Rfl: losartan-hydrochlorothiazide (HYZAAR) 50-12.5 mg Tablet, Take 1 tablet by mouth daily., Disp: , Rfl: omeprazole (PriLOSEC) 40 mg Capsule, Delayed Release(E.C.), Take 40 mg by mouth daily., Disp: , Rfl: gabapentin (Neurontin) 100 mg capsule, TAKE 1-3 CAPSULES BY MOUTH THREE TIMES A DAY NEEDED FOR BURNING PAIN, Disp: , Rfl: estrogen, conjugated,-medroxyPROGESTERone (PREMPRO) 0.3-1.5 mg Tablet, Take 1 tablet by mouth daily., Disp: , Rfl: Review [...] numbness. Hematological: Negative. Psychiatric/Behavioral: Negative. Objective BP 125/61 (Patient Position: Sitting) Pulse 72 Temp 36.6 ??C (97.8 ??F) (Temporal) Resp 18 Ht 165.1 cm (5' 5) Wt 92 kg (202 lb 12.8 oz) SpO2 96% BMI 33.75 kg/m?? Physical Exam Constitutional: General: She is [...] is no guarding or rebound. Musculoskeletal: General: Tenderness present. No swelling. Normal range of motion. Cervical back: Normal range of motion and neck supple. Right lower leg: No edema. Left lower leg: No edema. Comments: Diffuse low and mid back tenderness Lymphadenopathy: Cervical: No cervical adenopathy. Upper Body: Right upper body: No supraclavicular adenopathy. Left upper body: No supraclavicular adenopathy. Skin: General: Skin is warm and dry. Neurological: Mental Status: She is alert and oriented to person, place, and time. Recent Results (from the past 72 hour(s)) CBC (with Diff) Result Value Ref Range WBC 5.60 RBC 3.64 (L) Hemoglobin 11.5 Hematocrit 35.0 (L) Platelets 246 Neutr Abs (ANC) 3.18 Comprehensive metabolic panel (non-fasting) Result Value Ref Range Glucose Lvl 123 (H) BUN 17 Creatinine 0.8 Sodium 140 Potassium 3.8 Calcium 9.1 Total Protein 7.3 Albumin 3.9 Total Bilirubin 0.3 Alk Phos 99 AST 19 ALT 26 LDH 176 Assessment and Plan 58-year-old female with a follicular low-grade lymphoma diagnosed 2019 in [place]. She had stage II disease with only intra-abdominal disease although a staging marrow was not performed. She was treated with 4 doses of Rituxan with radiographic response by CT scan currently being watched offof therapy. No new palpable adenopathy and labs are stable but with her generalized achyness and worsening fatigue reminiscent of her symptoms at diagnosis, it is reasonable to get a CT scan at this point. Will order to [facility]. If stable, will continue with follow up every 6mos and she will follow up with her PCP for management of her back pain. With any concerns on CT she will return to clinic for discussion about next steps. 30 minutes were spent on date of visit, including non-face to face time. documented in this encounter Plan of Treatment Upcoming Encounters Date Type Department Care Team (Late st Contact Info) Description 04/25/2024 8:00 AM EDT Office Visit Hematology/Oncology at [address] [phone] Lopez Jacome MD [facility] [address] [place] [address] Scheduled Orders Name Type Priority Associated Diagnoses Orde r Schedule CT Chest Abdomen Pelvis w Contrast (Generic) Imaging Routine Follicular non-Hodgkin's lymphoma Expected: 10/27/2023, Expires: 04/27/2024 documented as of this encounter Procedures Procedure Name Priority Date/Time Associated Diagnosis Comments CBC (WITH DIFF) Routine 10/26/2023 COMPREHENSIVE METABOLIC PANEL Routine 10/26/2023 documented in this encounter Results * (ABNORMAL) Comprehensive metabolic panel (non-fasting) (10/26/2023) Glucose 123(H) Blood Urea Nitrogen 17 Creatinine 0.8 Sodium 140 Potassium 3.8 Calcium 9.1 Protein, Total 7.3 Albumin 3.9 Bilirubin, Total 0.3 Alkaline Phosphatase 99 Aspartate Aminotransferase 19 Alanine Aminotransferase 26 Lactate Dehydrogenase 176 Blood 10/26/2023 Historical Provider CHEMISTRY ORDERAB LES * (ABNORMAL) CBC (with Diff) (10/26/2023) White Blood Cell 5.60 Red Blood Cell 3.64(L) Hemoglobin 11.5 Hematocrit 35.0(L) Platelet 246 ANC 3.18 Blood 10/26/2023 Historical Provider HEMATOLOGY ORDERA BLES documented in this encounter Visit Diagnoses Diagnosis Follicular non-Hodgkin's lymphoma documented in this encounter Care Teams Exhaust And Muffler Repairer Relationship Specialty Start Date End Date Adelina Pagan, DIV[employer] INTERN [address] [place] [address] PCP - General Family Medicine 07/19/21 documented as of this encounter
[2024-04-25 07:47] LABS: Abs Immature Grans 0.02 10^3/uL (0.0-0.06); Absolute Basophil Count 0.01 10^3/uL (0.0-0.2); Absolute Lymphocyte Count 1.66 10^3/uL (1.2-3.4); Absolute Monocyte Count 0.36 10^3/uL (0.1-0.8); Absolute Neutrophil Count 3.75 10^3/uL (1.2-6.7); Basophils % 0.2 %; Eosinophils % 1.7 %; HCT 37.4 % (36.0-46.0); Immature Grans % 0.3 %; Lymphocytes % 28.1 %; MCH 31.8 pg (27.0-33.0); MCHC 32.1 % (32.0-36.0); MCV 99 fL (80-95); MPV 9.1 fL (8.0-11.0); Monocytes % 6.1 %; Neutrophils % 63.6 %; Platelet Count 227 10^3/uL (130-400); RBC 3.77 10^6/uL (3.93-5.22); RDW 13.3 % (11.7-14.6); RDW-SD 48.4 fL
[2024-04-25 08:03] LABS: ALT 23 U/L (14-59); AST 15 U/L (15-37); Albumin 3.6 g/dL (3.4-5.0); Alkaline Phosphatase 92 U/L (46-116); Anion Gap 10.9 mmol/L (3-11); BUN 15 mg/dL (7-18); Bilirubin, Total 0.32 mg/dL (0.2-1.0); CO2 26.1 mmol/L (21.0-32.0); CREATININE 0.9 mg/dL (0.55-1.02); Calcium 9.2 mg/dL (8.5-10.1); Chloride 104 mmol/L (98-107); Estimated GFR 73.19 (mL/min/1.73m2); Glucose 149 mg/dL (74-106); LDH 165 U/L (81-234); Potassium 3.8 mmol/L (3.5-5.1); Sodium 141 mmol/L (136-145); Total Protein 7.1 g/dL (6.4-8.2)
== END 2024-04-25 04:24 | disposition home or self-care (01) ==
PROVIDERS: PCP Nurse Practitioner Family; Visit Provider Nurse Practitioner Family
DX: C82.90 Follicular lymphoma, unspecified, unspecified site (principal)
CPT/HCPCS: 36415; 80053; 83615; 85025

== ENCOUNTER 2024-09-12 02:48 | Outpatient (CLI) | payer BC, SELFPAY ==
--- NOTE | 2024-09-12 07:00 | DI.MAMMO_ITS ---
Exam(s) MAMMO SCREENING EXAM: MAMMO SCREENING CLINICAL HISTORY: screening,Z12.39 TECHNIQUE: Bilateral full field digital CC and MLO mammographic images were obtained with 3D tomosyn thesis and utilizing computer aided detection (CAD). COMPARISON: Available for comparison. FINDINGS: Masses/Architectural Distortion: No suspicious nodules are present. There are no areas of architectu ral distortion. Microcalcifications: No suspicious pleomorphic-type are seen. Skin Thickening/Nipple Retraction: None. IMPRESSION: 1. No significant interval change with no specific features of malignancy noted. 2. Unless there is more urgent need, screening mammography is recommended, as per [employer] [place] [employer] guidelines. BI-RADS Category 1 - Negative Breast Density - Category B - Scattered areas of fibroglandular density Breast density category C or D implies that the patient has dense breast tissue. Dense breast tissue is very common and is not abnormal but dense breast tissue can make it harder to find cancer on a ma mmogram. Also, dense breast tissue may increase their breast cancer risk. This information about the result of the mammogram report was provided to the patient to raise their awareness. Use this report when you speak with the patient about their risks for breast cancer, which includes their family hist ory. At that time, you may recommend for more screening tests (Ultrasound or MRI) as they might be us eful based on their risk. A negative radiographic report should not delay biopsy if a dominant or clinically suspicious mass is present. Up to ten percent of cancers are not identified on mammography. A negative report may reinforce clinical impression. Adenosis and dense breasts may obscure an underlying neoplasm. False positive reports average 6 to 10%. Patient will receive a letter notifying them of these results.
== END 2024-09-12 03:08 ==
LOC: DI 02:48
PROVIDERS: PCP Nurse Practitioner Family; Visit Provider Nurse Practitioner Women's Health
DX: Z12.31 Encounter for screening mammogram for malignant neoplasm of breast (principal); R92.323 Mammographic fibroglandular density, bilateral breasts
CPT/HCPCS: 77063; 77067

== ENCOUNTER 2024-11-06 03:38 | Outpatient (CLI) | payer BC, SELFPAY ==
[2024-11-06 07:31] LABS: Abs Immature Grans 0.01 10^3/uL (0.0-0.06); Absolute Basophil Count 0.04 10^3/uL (0.0-0.2); Absolute Eosinophil Count 0.16 10^3/uL (0.0-0.7); Absolute Lymphocyte Count 1.68 10^3/uL (1.2-3.4); Absolute Monocyte Count 0.41 10^3/uL (0.1-0.8); Absolute Neutrophil Count 4.44 10^3/uL (1.2-6.7); Basophils % 0.6 %; Eosinophils % 2.4 %; HCT 34.8 % (36.0-46.0); HGB 11.4 g/dL (11.2-15.7); Immature Grans % 0.1 %; Lymphocytes % 24.9 %; MCH 32.6 pg (27.0-33.0); MCHC 32.8 % (32.0-36.0); MCV 99 fL (80-95); MPV 9.1 fL (8.0-11.0); Monocytes % 6.1 %; Neutrophils % 65.9 %; Platelet Count 247 10^3/uL (130-400); RDW 13.6 % (11.7-14.6); RDW-SD 49.3 fL; WBC 6.74 10^3/uL (4.4-10.8)
[2024-11-06 07:47] LABS: ALT 28 U/L (14-59); AST 16 U/L (15-37); Albumin 3.6 g/dL (3.4-5.0); Alkaline Phosphatase 96 U/L (46-116); Anion Gap 10.4 mmol/L (3-11); BUN 11 mg/dL (7-18); Bilirubin, Total 0.42 mg/dL (0.2-1.0); CO2 27.6 mmol/L (21.0-32.0); CREATININE 1.1 mg/dL (0.55-1.02); Calcium 8.8 mg/dL (8.5-10.1); Chloride 108 mmol/L (98-107); Estimated GFR 57.52 (mL/min/1.73m2); Glucose 145 mg/dL (74-106); LDH 168 U/L (81-234); Potassium 3.7 mmol/L (3.5-5.1); Sodium 146 mmol/L (136-145); Total Protein 6.8 g/dL (6.4-8.2)
== END 2024-11-06 03:39 | disposition home or self-care (01) ==
LOC: LBO 03:39
PROVIDERS: PCP Nurse Practitioner Family; Visit Provider Internal Medicine Hematology & Oncology
DX: C82.90 Follicular lymphoma, unspecified, unspecified site (principal)
CPT/HCPCS: 36415; 80053; 83615; 85025

== ENCOUNTER 2024-11-09 13:32 | Emergency (ER) | payer BC, SELFPAY ==
[2024-11-09] VITALS (34 sets, daily range): BP systolic 106–163; BP diastolic 47–88; PULSE 60–100; RESP 16; TEMP 36.8; O2SAT 89–99
--- NOTE | 2024-11-09 14:15 | DI.CT_ITS ---
Exam(s) CT ABDOMEN PELVIS W EXAM: CT ABDOMEN PELVIS W CLINICAL HISTORY: ruq pain with radiation to flank. TECHNIQUE: Imaging Protocol: Axial computed tomography images with coronal and sagittal reformatted images were created and reviewed CONTRAST MATERIAL: Intravenous: Omnipaque-350 75cc Oral: None COMPARISON: CT CT CHEST/ABD/PEL W from 11/15/2023 FINDINGS: VISUALIZED LUNG BASES: Mild benign-appearing increased markings are noted in the right lower lobe pos terior basal segment and lateral segment of the right middle lobe. There are no pleural effusions.. ABDOMEN: There is no ascites. LIVER: There are no focal hepatic lesions evident. No dilated intrahepatic ducts. GALLBLADDER/BILIARY: There are 2 tiny densities in the gallbladder which may be calculi or polyps juan j suring up to 2 millimeter. There is no gallbladder wall edema nor pericholecystic fluid. The CBD is not dilated.. PANCREAS: No evidence of pancreatic mass nor dilatation of the pancreatic duct. SPLEEN: Spleen is not enlarged. No obvious intrasplenic lesions. Splenic and portal veins are paten t. ADRENALS: There are no significant adrenal masses. KIDNEYS:There is a benign cyst in the posterior cortex of the left kidney which measures 2.6 x 2.5 cm . There is not require further workup. There are no solid renal masses nor calculi and no hydroneph rosis nor hydroureter evident.. ABDOMINAL AORTA: Abdominal aorta is not enlarged. LYMPH NODES:There are few small para-aortic lymph nodes all measuring less than 1 cm. ABDOMINAL WALL: No evidence of significant anterior abdominal wall nor inguinal hernia. GI: There is no evidence of bowel obstruction, free air, nor abscess. PELVIS: GI: No evidence of appendicitis.There is sigmoid diverticuli but no evidence of obvious acute diverti culitis. There also diverticuli noted in the descending-left colon, also without evidence of obvious acute diverticulitis.There few small lymph nodes in the para-aortic region measuring up to 0.9 cm. LYMPH NODES: There is no adenopathy along the iliac chains. No inguinal adenopathy. REPRODUCTIVE: Uterus and adnexal regions appear unremarkable. URINARY BLADDER: No calculi nor obvious masses evident OSSEOUS: No fractures and no significant osseous lesions. Chronic advanced disc space narrowing at L5-S1 level. There is also degenerative anterolisthesis of L4 upon L5, proximally 8 mm slippage. IMPRESSION: 1. There appear to be possible tiny gallstones in the gallbladder lumen. No evidence of acute cholec ystitis nor dilatation of the biliary tree. No evidence of pancreatitis. 2. There is mild panda- aortic adenopathy. These lymph nodes measure less than 1 cm. Similar to prev ious. There is apparently a history of lymphoma here. 3. Sigmoid diverticulosis with no evidence of acute diverticulitis. Also no evidence of acute append icitis. Called by myself to ER provider on 11/09/2024 at 4:25 p.m. RADIATION DOSE DELIVERED: 537.12mGy.cm Total DLP DATA REPOSITORY: All CT scans at this facility are submitted to the National Radiology Data Registry (NRDR) Dose Index Registry (DIR) with the [employer] (ACR). RADIATION OPTIMIZATION: All CT scans at this facility use at least one of these dose optimization te chniques: automated exposure control; mA and/or kV adjustment per patient size (includes targeted exa ms where dose is matched to clinical indication); or iterative reconstruction.
--- NOTE | 2024-11-09 14:30 | RT.EKG_ITS ---
APPROVED REPORT Exam: Resting ECG Reason for Exam: ruq pain Patient Location: E HR:67 bpm ECG Measurements Heart Rate 67 AXIS SC 143 P 24 QRSd 83 QRS 64 QT 422 T 48 QTc 447 Conclusion Sinus rhythm. 67 normal axis no stemi
--- NOTE | 2024-11-09 14:31 | DI.RAD_ITS ---
Exam(s) XR CHEST 2V PA LATERAL EXAM: XR CHEST 2V PA LATERAL CLINICAL HISTORY: ruq pain. TECHNIQUE: 2D digital imaging was performed. COMPARISON: No exams were available for comparison FINDINGS: 2 views: Heart size is normal. The mediastinum is not widened. Lungs are clear. No infiltrates nor pleural effusions. IMPRESSION: No acute pulmonary findings. DATA REPOSITORY: RADIATION DOSE DELIVERED:
[2024-11-09] MEDS: Prochlorperazine 10 MG/2 ML VIAL 5 MG IVP (14:36)
[2024-11-09] MEDS: HYDROmorphone 2 MG/ML SYR 0.5 MG IVP (14:38)
[2024-11-09] MEDS: ACETAMINOPHEN 1,000 MG/100 ML BAG 400 MG IVPB (14:43)
--- NOTE | 2024-11-09 15:04 | ED.GENADUL_ITS ---
Discharge Plan Discharge Details Chief Complaint: Abd Prob Primary Care Provider: TI YATES ED Provider: Bernie Shin Home Meds and New Rx's Prescriptions: No Action Duavee 0.45-20 mg tablet 1 tab PO DAILY Qty: 30 2RF cholecalciferol (vitamin D3) 10 mcg (400 unit) capsule 20 mcg PO DAILY omeprazole 40 mg Capsule,Delayed Release(Dr/Ec) 40 mg PO DAILY losartan-hydrochlorothiazide 50-12.5 mg Tablet 1 tab PO DAILY HPI General Date/Time Provider Initiated Documentation: 11/09/24 13:51 . HPI Narrative: The patient is a 59-year-old female with a history of large cell lymphoma, hypertension, and GERD, presenting with an acute onset of right-sided upper abdominal pain that started yesterday but has significantly worsened today. She reports associated nausea but does not endorse any known trauma or specific factors that exacerbate or alleviate the pain. She also does not report any chest pain, shortness of breath, calf pain or swelling, or urinary issues, including hematuria. Related Data Home Medications ?Medication ?Instructions ?Recorded ?Confirmed losartan 50 mg-hydrochlorothiazide 1 tab PO DAILY 10/29/21 11/09/24 12.5 mg tablet omeprazole 40 mg capsule,delayed 40 mg PO DAILY 10/29/21 11/09/24 release cholecalciferol (vitamin D3) 10 20 mcg PO DAILY 12/21/22 11/09/24 mcg (400 unit) capsule conjugated estrogens 0.45 1 tab PO DAILY #30 tabs 08/20/24 11/09/24 mg-bazedoxifene 20 mg tablet (Duavee) Previous Rx's ?Medication ?Instructions ?Recorded conjugated estrogens 0.45 1 tab PO DAILY #30 tabs 08/20/24 mg-bazedoxifene 20 mg tablet (Duavee) Allergies Allergy/AdvReac Type Severity Reaction Status Date / Time oxycodone (From Percocet) Allergy Intermediate Hives, Verified 11/09/24 14:06 Nausea, itching Latex, Natural Rubber Allergy Skin Rash, Verified 11/09/24 14:06 itchy throat General Stated Complaint: Abd Prob LIVAN: 3 Exam Narrative Exam Narrative: General Appearance: The patient is in acute discomfort. Vital signs: Vitals are stable. HEENT: Within normal limits. Respiratory: Lungs are clear to auscultation. Gastrointestinal: There is reproducible pain in the right upper quadrant of the abdomen. No rebound or guarding. No abdominal bruit or pulsatile mass. Back, Musculoskeletal: Distal pulses in the musculoskeletal system are intact. Skin: Warm and dry, no rash. Neurological: Normal. Course Vital Signs Vital signs: Vital Signs Temperature 36.8 C 11/09/24 14:02 Pulse 75 11/09/24 14:02 Respiratory Rate 16 11/09/24 14:02 Blood Pressure 154/88 H 11/09/24 14:02 Pulse Oximetry 96 11/09/24 14:02 Temperature 36.8 C 11/09/24 14:02 Temperature Source Oral 11/09/24 14:02 Pulse 75 11/09/24 14:02 Respiratory Rate 16 11/09/24 14:02 Blood Pressure 154/88 H 11/09/24 14:02 Blood Pressure Position Sitting 11/09/24 14:02 Pulse Oximetry 96 11/09/24 14:02 Oxygen Delivery Method Room Air 11/09/24 14:02 Oxygen Flow Rate 0 11/09/24 14:02 Pain Level 10 11/09/24 14:02 Medical Decision Making Initial Assessment: 59-year-old female with history of large cell lymphoma, hypertension, and GERD presents with acute onset of right-sided upper abdominal pain, worse today, associated with nausea. Differential Diagnosis: - Pulmonary embolism: Low suspicion due to stable vitals and absence of respiratory symptoms. Plan: No further action required. ED Course: - CT abdomen and pelvis ordered. - Diagnostic blood work ordered: lipase, CBC, CMP. - Administered 0.5 mg of Dilaudid for pain. - Administered fluids. - Administered antiemetics for nausea. Final Assessment: Patient with acute right-sided upper abdominal pain, low clinical suspicion for pulmonary embolism. CT abdomen and pelvis, diagnostic blood work, and symptomatic treatment with Dilaudid, fluids, and antiemetics initiated. Clinical Impression: - Acute right-sided upper abdominal pain. MDM Components Evaluation: - Number of Differential Diagnoses or Management Options: Pulmonary embolism. - Amount and Complexity of Data Reviewed: CT abdomen and pelvis, lipase, CBC, CMP. - Risk of Complication and Morbidity or Mortality: Low risk given stable vitals and absence of respiratory symptoms. 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 mild Tendonitis of long head of biceps brachii of right shoulder Arthritis of right acromioclavicular joint Rotator cuff tear, right Bursitis of right shoulder History of tobacco abuse Hyperlipidemia History of ovarian cyst Hypertension GERD (gastroesophageal reflux disease) Bipolar affective disorder B12 deficiency Anxiety Former smoker Surgical History (Updated 04/21/23 @ 08:01 by Carole Gaitan) Hx of colonoscopy (~04/2023) Social History (Updated 08/20/24 @ 10:08 by Nikole Aquino) Smoking/Tobacco Use Status: Former Tobacco Use Quit Date: 09/04/21 Second Hand Exposure: No Smoking risk assessment performed?: Yes Alcohol Intake: never Drug use: Never Substance use type: does not use Housing: apartment Current gender identity: female What type of physical activity do you participate in: regular exercise Seatbelt use: always Do you feel safe at home: Yes Do you feel safe in your relationship?: Yes History History 4 Para Hx # Term Pregnancies 4 Multiple births Hx # Pregnancies Ectopic pregnancies AB induced Hx Number of Living Children 4 AB spontaneous
[2024-11-09 15:15] LABS: Abs Immature Grans 0.01 10^3/uL (0.0-0.06); Absolute Basophil Count 0.03 10^3/uL (0.0-0.2); Absolute Eosinophil Count 0.07 10^3/uL (0.0-0.7); Absolute Lymphocyte Count 1.94 10^3/uL (1.2-3.4); Absolute Monocyte Count 0.39 10^3/uL (0.1-0.8); Absolute Neutrophil Count 3.19 10^3/uL (1.2-6.7); Basophils % 0.5 %; Eosinophils % 1.2 %; HCT 31.4 % (36.0-46.0); HGB 10.4 g/dL (11.2-15.7); Immature Grans % 0.2 %; Lymphocytes % 34.5 %; MCH 32.8 pg (27.0-33.0); MCHC 33.1 % (32.0-36.0); MCV 99 fL (80-95); MPV 8.8 fL (8.0-11.0); Monocytes % 6.9 %; Neutrophils % 56.7 %; Platelet Count 246 10^3/uL (130-400); RBC 3.17 10^6/uL (3.93-5.22); RDW 13.4 % (11.7-14.6); RDW-SD 48.5 fL; WBC 5.63 10^3/uL (4.4-10.8)
[2024-11-09 15:33] LABS: Troponin I 6 ng/L (<or=51)
[2024-11-09 15:37] LABS: ALT 23 U/L (14-59); AST 18 U/L (15-37); Albumin 3.7 g/dL (3.4-5.0); Alkaline Phosphatase 91 U/L (46-116); Anion Gap 9.3 mmol/L (3-11); BUN 13 mg/dL (7-18); Bilirubin, Total 0.3 mg/dL (0.2-1.0); CO2 27.7 mmol/L (21.0-32.0); CREATININE 0.8 mg/dL (0.55-1.02); Calcium 8.9 mg/dL (8.5-10.1); Chloride 108 mmol/L (98-107); Glucose 100 mg/dL (74-106); Potassium 3.6 mmol/L (3.5-5.1); Sodium 145 mmol/L (136-145); Total Protein 6.8 g/dL (6.4-8.2)
[2024-11-09] MEDS: Omnipaque 350 MG/ML 100 ML BTL IJ (15:47)
[2024-11-09] MEDS: Normal Saline - Diluent 50 ML VIAL IJ (15:47)
[2024-11-09 15:52] LABS: Lipase 42 U/L (<78)
--- NOTE | 2024-11-09 16:13 | W.EDPROG ---
Date of service: 11/09/24 Time of Service: 16:13 Medical Decision Making This dictation utilizes [id number] dictation software and may contain unedited grammatical errors. Patient seen in signout from Bernie Shin PA-C, please see her complete note. Essentially this 59-year-old female with known lymphoma presents with right-sided abdominal pain, question gallbladder versus renal colic awaiting CT of the abdomen and pelvis and chest x-ray. Patients' medical history: Hyperlipidemia, history of ovarian cyst, GERD, hypertension, hormone replacement therapy, alcohol use, anemia, lymphoma. Family and social history: History of tobacco use, history of alcohol abuse in remission. Patient states she has been more fatigued than usual today and has seen her regular doctor about this, her oncologist does not believe it is related to lymphoma, she feels she may need B12 injections Pertinent exam findings / vital signs include please see Bernie Shin complete note. Differential / pathologies of concern include abdominal wall muscle strain, biliary colic, unlikely thoracic pathology, anemia Diagnostic studies of: -CBC, CMP, serial troponins, lipase, UA, CT abdomen/pelvis with contrast, chest x-ray. -sinus rhythm at 67 bpm without any acute changes or T wave inversions, normal intervals, normal axis, poor R wave progression -CBC shows no leukocytosis, does show anemia, patient denies any symptoms of blood loss or GI bleeding -CMP shows no actionable abnormality -Lipase negative -Urine benign -Serial troponins negative -Chest x-ray shows no acute pathology -CT shows possible tiny gallstones without any evidence of acute cholecystitis, periaortic adenopathy likely due to her treated lymphoma, no other pathology Interventions of: -Recommend outpatient ultrasound, provider with an ultrasound form if she wishes to pursue ultrasound and return to the ED but I did pet adoption counselor her that she should try to get this scheduled from her primary care provider, she may also have abdominal wall muscle strain which I would expect to get better over the next few days. ED Course/Assessment/Plan: 59-year-old female presents with right abdominal pain around the oblique muscle, there is no surgical pathology on her CT, she reports chronic fatigue and has anemia that is slightly worse than baseline without signs or symptoms of GI bleeding, counseled her on the need for right upper quadrant ultrasound to characterize her possible tiny gallstones but she has negative Pond sign on my reevaluation. Provided her with ultrasound form in case she wants to return to the ER after ultrasound for results but I did advised to get his scheduled outpatient, strict return criteria for any severe increase in pain especially with fever or other emergent concerns Findings not consistent with appendicitis, SBO, diverticulitis, IBD, surgical abdomen, ACS. Disposition of abdominal pain of unknown cause. Patient verbalized understanding of the plan and return to ED criteria and engaged in shared decision making. Medical Records Medical records reviewed: Yes I reviewed the patient's medical records. Imaging Data Radiologic Study: Attestation: I personally reviewed and interpreted this imaging study as follows: Imaging: CT Scan Radiologist's impression: EXAM: CT ABDOMEN PELVIS W CLINICAL HISTORY: ruq pain with radiation to flank. TECHNIQUE: Imaging Protocol: Axial computed tomography images with coronal and sagittal reformatted images were created and reviewed CONTRAST MATERIAL: Intravenous: Omnipaque-350 75cc Oral: None COMPARISON: CT CT CHEST/ABD/PEL W from 11/15/2023 FINDINGS: VISUALIZED LUNG BASES: Mild benign-appearing increased markings are noted in the right lower lobe posterior basal segment and lateral segment of the right middle lobe. There are no pleural effusions.. ABDOMEN: There is no ascites. LIVER: There are no focal hepatic lesions evident. No dilated intrahepatic ducts. GALLBLADDER/BILIARY: There are 2 tiny densities in the gallbladder which may be calculi or polyps measuring up to 2 millimeter. There is no gallbladder wall edema nor pericholecystic fluid. The CBD is not dilated.. PANCREAS: No evidence of pancreatic mass nor dilatation of the pancreatic duct. SPLEEN: Spleen is not enlarged. No obvious intrasplenic lesions. Splenic and portal veins are patent. ADRENALS: There are no significant adrenal masses. KIDNEYS:There is a benign cyst in the posterior cortex of the left kidney which measures 2.6 x 2.5 cm. There is not require further workup. There are no solid renal masses nor calculi and no hydronephrosis nor hydroureter evident.. ABDOMINAL AORTA: Abdominal aorta is not enlarged. LYMPH NODES:There are few small para-aortic lymph nodes all measuring less than 1 cm. ABDOMINAL WALL: No evidence of significant anterior abdominal wall nor inguinal hernia. GI: There is no evidence of bowel obstruction, free air, nor abscess. PELVIS: GI: No evidence of appendicitis.There is sigmoid diverticuli but no evidence of obvious acute diverticulitis. There also diverticuli noted in the descending-left colon, also without evidence of obvious acute diverticulitis.There few small lymph nodes in the para-aortic region measuring up to 0.9 cm. LYMPH NODES: There is no adenopathy along the iliac chains. No inguinal adenopathy. REPRODUCTIVE: Uterus and adnexal regions appear unremarkable. URINARY BLADDER: No calculi nor obvious masses evident OSSEOUS: No fractures and no significant osseous lesions. Chronic advanced disc space narrowing at L5-S1 level. There is also degenerative anterolisthesis of L4 upon L5, proximally 8 mm slippage. IMPRESSION: 1. There appear to be possible tiny gallstones in the gallbladder lumen. No evidence of acute cholecystitis nor dilatation of the biliary tree. No evidence of pancreatitis. 2. There is mild panda- aortic adenopathy. These lymph nodes measure less than 1 cm. Similar to previous. There is apparently a history of lymphoma here. 3. Sigmoid diverticulosis with no evidence of acute diverticulitis. Also no evidence of acute appendicitis. Called by myself to ER provider on 11/09/2024 at 4:25 p.m. Radiologic Study #2: Attestation: I personally reviewed and interpreted this imaging study as follows: Imaging: X-Ray Radiologist's impression: EXAM: XR CHEST 2V PA LATERAL CLINICAL HISTORY: ruq pain. TECHNIQUE: 2D digital imaging was performed. COMPARISON: No exams were available for comparison FINDINGS: 2 views: Heart size is normal. The mediastinum is not widened. Lungs are clear. No infiltrates nor pleural effusions. IMPRESSION: No acute pulmonary findings. Lab Data Lab results reviewed: Yes I reviewed the patient's lab results. Labs: Laboratory Tests Range/Units 11/09/24 11/09/24 11/09/24 15:10 15:30 16:30 WBC (4.4-10.8) 10^3/uL 5.63 RBC (3.93-5.22) 10^6/uL 3.17 L Hgb (11.2-15.7) g/dL 10.4 L Hct (36.0-46.0) % 31.4 L MCV (80-95) fL 99 H MCH (27.0-33.0) pg 32.8 MCHC (32.0-36.0) % 33.1 RDW (11.7-14.6) % 13.4 Plt Count (130-400) 10^3/uL 246 MPV (8.0-11.0) fL 8.8 Immature Gran % % 0.2 Neutrophils % % 56.7 Lymphocytes % % 34.5 Monocytes % % 6.9 Eosinophils % % 1.2 Basophils % % 0.5 Nucleated RBC % (0.0-0.3) % 0.0 Absolute Neutrophils (1.2-6.7) 10^3/uL 3.19 Absolute Lymphocytes (1.2-3.4) 10^3/uL 1.94 Absolute Monocytes (0.1-0.8) 10^3/uL 0.39 Absolute Eosinophils (0.0-0.7) 10^3/uL 0.07 Absolute Basophils (0.0-0.2) 10^3/uL 0.03 Sodium (136-145) mmol/L 145 Potassium (3.5-5.1) mmol/L 3.6 Chloride (98-107) mmol/L 108 H Carbon Dioxide (21.0-32.0) mmol/L 27.7 Anion Gap (3-11) mmol/L 9.3 BUN (7-18) mg/dL 13 Creatinine (0.55-1.02) mg/dL 0.8 Est GFR (CKD-EPI 2020) (mL/min/1.73m2) 84.30 Glucose (74-106) mg/dL 100 Calcium (8.5-10.1) mg/dL 8.9 Total Bilirubin (0.2-1.0) mg/dL 0.3 AST (15-37) U/L 18 ALT (14-59) U/L 23 Alkaline Phosphatase (46-116) U/L 91 Troponin I (<or=51) ng/L 6 Cancelled Total Protein (6.4-8.2) g/dL 6.8 Albumin (3.4-5.0) g/dL 3.7 Lipase (<78) U/L 42 Urine Color (Yellow) Yellow Urine Clarity (Clear) Clear Urine pH (5-8) 5.5 Ur Specific [place] (1.005-1.025) 1.015 Urine Protein (Neg-Trace) mg/dL Negative Urine Ketones (Negative) mg/dL Negative Urine Blood (Negative) Negative Urine Nitrite (Negative) Negative Urine Bilirubin (Negative) Negative Urine Urobilinogen (Up to 0.2) mg/dL 0.2 Ur Leukocyte Esterase (Negative) Negative Urine Glucose (Negative) mg/dL Negative Range/Units 11/09/24 17:53 WBC (4.4-10.8) 10^3/uL RBC (3.93-5.22) 10^6/uL Hgb (11.2-15.7) g/dL Hct (36.0-46.0) % MCV (80-95) fL MCH (27.0-33.0) pg MCHC (32.0-36.0) % RDW (11.7-14.6) % Plt Count (130-400) 10^3/uL MPV (8.0-11.0) fL Immature Gran % % Neutrophils % % Lymphocytes % % Monocytes % % Eosinophils % % Basophils % % Nucleated RBC % (0.0-0.3) % Absolute Neutrophils (1.2-6.7) 10^3/uL Absolute Lymphocytes (1.2-3.4) 10^3/uL Absolute Monocytes (0.1-0.8) 10^3/uL Absolute Eosinophils (0.0-0.7) 10^3/uL Absolute Basophils (0.0-0.2) 10^3/uL Sodium (136-145) mmol/L Potassium (3.5-5.1) mmol/L Chloride (98-107) mmol/L Carbon Dioxide (21.0-32.0) mmol/L Anion Gap (3-11) mmol/L BUN (7-18) mg/dL Creatinine (0.55-1.02) mg/dL Est GFR (CKD-EPI 2020) (mL/min/1.73m2) Glucose (74-106) mg/dL Calcium (8.5-10.1) mg/dL Total Bilirubin (0.2-1.0) mg/dL AST (15-37) U/L ALT (14-59) U/L Alkaline Phosphatase (46-116) U/L Troponin I (<or=51) ng/L 7 Total Protein (6.4-8.2) g/dL Albumin (3.4-5.0) g/dL Lipase (<78) U/L Urine Color (Yellow) Urine Clarity (Clear) Urine pH (5-8) Ur Specific [place] (1.005-1.025) Urine Protein (Neg-Trace) mg/dL Urine Ketones (Negative) mg/dL Urine Blood (Negative) Urine Nitrite (Negative) Urine Bilirubin (Negative) Urine Urobilinogen (Up to 0.2) mg/dL Ur Leukocyte Esterase (Negative) Urine Glucose (Negative) mg/dL Quality:SDOH Health Related Social Needs: No Data to Display Discharge Plan Disposition Patient Disposition: Home Condition: Stable Discharge Details Clinical Impression: Abdominal pain of unknown cause Primary Care Provider: TI YATES ED Provider: Vick Murillo Home Meds and New Rx's Prescriptions: Continued Duavee 0.45-20 mg tablet 1 tab PO DAILY Qty: 30 2RF cholecalciferol (vitamin D3) 10 mcg (400 unit) capsule 20 mcg PO DAILY omeprazole 40 mg Capsule,Delayed Release(Dr/Ec) 40 mg PO DAILY losartan-hydrochlorothiazide 50-12.5 mg Tablet 1 tab PO DAILY Discharge Instructions Instructions: Abdominal Pain, Adult ED, Abdominal Muscle Strain ED, Gallstones ED Additional Instructions: You were seen in the emergency department for your right lower abdominal pain in the oblique muscle area, there is no evidence of surgical pathology on your CT scan, you have possible tiny gallstones that could be causing intermittent symptoms or an abdominal wall muscle strain, your laboratory workup shows some anemia which could explain your increased fatigue lately but you deny any symptoms of GI bleeding. I have sent you home with an order form for an ultrasound of the right upper quadrant to further characterize these tiny gallstones, you could also have this ordered outpatient and not have to return to the ER for results. Please use Tylenol and ibuprofen for pain, apply gentle heat to the area of pain, may apply topical Voltaren gel to the area of pain, please return for severe increase in pain, intractable nausea or vomiting, developing fever with abdominal pain or any other emergent concerns. Referrals: TI YATES, FILM PROCESSING UTILITY WORKER [Primary Care Provider] -
[2024-11-09 16:43] LABS: Bilirubin Negative (Negative); Blood Negative (Negative); Clarity Clear (Clear); Glucose Negative (Negative); Ketones Negative (Negative); Leukocyte Esterase Negative (Negative); Nitrite Negative (Negative); Specific Gravity 1.015 (1.005-1.025); Urobilinogen 0.2 mg/dL (Up to 0.2); pH 5.5 (5-8)
[2024-11-09 18:19] LABS: Troponin I 7 ng/L (<or=51)
== END 2024-11-09 19:23 | disposition home or self-care (01) ==
PROVIDERS: Physician Assistant; Emergency Provider Physician Assistant; PCP Nurse Practitioner Family
DX: R10.11 Right upper quadrant pain (principal); I10 Essential (primary) hypertension; E78.5 Hyperlipidemia, unspecified; C82.90 Follicular lymphoma, unspecified, unspecified site; Z87.891 Personal history of nicotine dependence
CPT/HCPCS: 00123; 36415; 80053; 83690; 93005; 96365; 96375; 99285; 71046; 74177; 81003; 84484; 85025; 93010; J0131; J0780; J1171; J3490

== ENCOUNTER 2024-11-12 15:26 | Outpatient (REF) | payer BC, SELFPAY ==
[2024-11-12 20:10] LABS: Ferritin 73 ng/mL (8-252)
[2024-11-12 20:12] LABS: Vitamin B12 > 2000 pg/mL (193-986)
[2024-11-12 20:23] LABS: Iron 47 ug/dL (50-170); Total Iron Binding Capacity 359 ug/dL (250-450); Transferrin Sat 13 % (15-50)
[2024-11-14 11:34] LABS: Tissue Transglutaminase IgA <4.0 CU (<20.0)
[2024-11-15 18:11] LABS: Tissue Transglutaminase Ab IgG 2.4 U/mL
== END 2024-11-12 15:27 | disposition home or self-care (01) ==
LOC: NCHCN 15:26
PROVIDERS: PCP Nurse Practitioner Family; Visit Provider Nurse Practitioner Family
DX: E53.8 Deficiency of other specified B group vitamins (principal); D64.9 Anemia, unspecified
CPT/HCPCS: 86364; 82607; 82728; 83540; 83550

== ENCOUNTER 2024-11-26 00:43 | Outpatient (CLI) | payer BC, SELFPAY ==
--- NOTE | 2024-11-26 | DI.NM_ITS ---
Exam(s) NM HEPATOBILIARY SCAN GRP EXAM: NM HEPATOBILIARY SCAN GRP CLINICAL HISTORY: RT UPPER ABD PAIN,R14.2,ERUCTATION FUNCTIONAL DYSPEPSIA,K30. TECHNIQUE: Injected dose: 5 mCi Tc-99 mebrofenin Initial dynamic images: 60 minutes Post-Gallbladder filling: Patient was given ensure 8 ounces instead of cholecystokinin due to the pre sence of known gallstones COMPARISON: No exams were available for comparison FINDINGS: There is normal uptake and excretion of radiopharmaceutical by the liver, and activity is seen within the gallbladder lumen starting at 7 minutes post-injection, this implying that there is no obstructi on of the cystic duct at this time. The radiopharmaceutical is seen descending down the nondilated C BD into the duodenal C-loop. In response to the administered oral Ensure there is a gallbladder ejection fraction of only 11 perce nt demonstrated over next 50 minutes. Normal gallbladder ejection fraction is greater than 35 percen t. IMPRESSION: 1. There is no obstruction of the cystic duct, implying that there is presently no evidence of acute cholecystitis. 2. However, in response to the orally administered 8 ounces of Ensure there is a lower than normal ga llbladder ejection fraction demonstrated (11 percent). Normal gallbladder ejection fraction is over 35 percent. This implies an element of probable gallbladder dysfunction.
== END 2024-11-26 01:03 ==
PROVIDERS: PCP Nurse Practitioner Family; Visit Provider Nurse Practitioner Family
DX: K30 Functional dyspepsia (principal); R14.2 Eructation
CPT/HCPCS: 78227

== ENCOUNTER 2025-01-07 06:07 | Day surgery (SDC) | payer BC, SELFPAY ==
--- NOTE | 2025-01-06 16:06 | PDOC.DSDIS_ITS ---
Date of service: 01/07/25 Discharge Plan Disposition Patient Disposition: Home Condition: Good Discharge Details Reason For Visit: Laparoscopic cholecystectomy Attending Provider: Aristeo Multani Primary Care Provider: TI YATES Home Meds and New Rx's Prescriptions: New tramadol 50 mg tablet 50 mg PO Q8H PRNQty: 9 0RF Rx Instructions: take one tablet by mouth up to every 8 hours if needed for severe pain Continued Duavee 0.45-20 mg tablet 1 tab PO DAILY Qty: 30 2RF iron-vitamin B complex with C Tablet 1 tab PO DAILY cholecalciferol (vitamin D3) 10 mcg (400 unit) capsule 20 mcg PO DAILY omeprazole 40 mg Capsule,Delayed Release(Dr/Ec) 40 mg PO DAILY losartan-hydrochlorothiazide 50-12.5 mg Tablet 1 tab PO DAILY Discharge Instructions Instructions: Cholecystectomy, Laparoscopic Surgery Additional Instructions: Terese, was very nice meeting you today, and I hope you have a quick and une ventful recovery. The operation went very smoothly. We are able to remove the gallbladders with the cameras just as we discussed beforehand. Hopefully this will help you feel better in the weeks and years to come. As I mentioned beforehand, expect to get some bruising around the incisions. That is extremely common and nothing to worry about. Using ice packs will certainly help with swelling and pain at the incision sites afterwards. As you asked, you should be up and walking around a little bit more more each day in the week to come. Keep the Band-Aids over your incisions until tomorrow. At that point, you can remove them and wash incisions with warm soapy water. You do not need to have Band- Aids on the incisions afterwards, but you are certainly welcome to if that is more comfortable for you. If you need anything, or have any questions at all, please do not hesitate to ask, otherwise look forward to seeing you in the office at your follow-up visit. 1. Resume all of your regular medications. 2. Use ice packs over the incisions to help with pain and swelling. 3. Alternate [id number] Tylenol and ibuprofen every 6 hours for the first 2 days, then use them as needed. Use the prescription for tramadol if needed for more severe pain 4. Leave bandage in place for 24 hours, then remove. 5. Shower with warm soapy water. Pat dry. Use a bandaid if needed to protect your clothing. 6. No soaking or tub baths until I see you in the office. 7. No heavy lifting until I see you in the office. 8. Call the office (or go directly to the emergency room after hours) if you not ice any of the following: Develop chills (warm to touch), or if you have a thermometer and your temperature is above 101 Difficulty breathing or difficultly swallowing Persistent vomiting Any bleeding ? exceeding one tablespoon 9. Call your physician if the site where your intravenous was started becomes red, swollen, painful, and warm to touch. Referrals: Aristeo Multani MD [ [facility] STAFF PHYSICIAN] - (01/23 at 8:45 AM) Activity:: No heavy lifting Remove Dressings/Wound Care:: 24 hours Shower/Bathe:: 24 hours Diet:: As Tolerated Discharge Orders Discharge Orders: Discharge Order (Routine); Ordered 01/06/25 Ordered By: Aristeo Multani DS: Diagnosis Discharge Diagnosis (1) Biliary dyskinesia: Status: Acute Asessment and Plan: Status post laparoscopic cholecystectomy; outpatient postoperative follow-up
--- NOTE | 2025-01-06 16:09 | W.PM.OP ---
Operative Note Operative Note PRE-OP DIAGNOSIS: Biliary dyskinesia POST-OP DIAGNOSIS: same PROCEDURE: Laparoscopic cholecystectomy SURGEON: Aristeo Multani UI DEVELOPER DESIGNER: Debra Muir ANESTHESIA TYPE: General LMA/ETT Refer to Anesthesia Record ESTIMATED BLOOD LOSS: 25 PATHOLOGY: other (Gallbladder) COMPLICATIONS: None Patient was transported to: PACU Patient's condition: stable Indications: Terese is a 59-year-old woman with intermittent chronic right upper quadrant abdominal pain. She underwent HIDA scan demonstrated low gallbladder ejection fraction consistent with biliary dyskinesia. Procedure Description: After satisfactory induction of general anesthesia, I prepped and draped the abdomen in usual fashion. Next, I began with a periumbilical incision. Using a 5 mm optical viewing port, I establish pneumoperitoneum. I inserted a 5 mm 30 degree scope, and examine the underlying viscera. There is no evidence of any trauma from entry. Next, placed another 5 mm port in the right hemiabdomen, and moved the camera here prior to exchanging the umbilical port to a 12. The patient was placed in some Trendelenburg left side down positioning, and 2 more 5 mm ports were placed. 1 was in the mid epigastrium, and the other was adjacent to the right mid abdominal port. I then grasped the gallbladder fundus and elevated cephalad. With the assistance of indocyanine green visualization, I began by dissecting the gallbladder infundibulum. I worked in a lateral to medial fashion. Once I skeletonized the cystic duct and cystic artery, with a satisfactory critical view of safety, I doubly clipped and divided them. I then used electrocautery to dissect the gallbladder off the gallbladder fossa. I did create a small rent in the gallbladder wall during this dissection. He was immediately controlled with minimal spillage of bile. No stones were lost. Once the gallbladder was dissected free, I passed the gallbladder into an Endo Catch bag and removed it by way of the umbilical site. I examined the surgical field. It was hemostatic. The 12 mm port was removed from the umbilicus, and a Lamine Rivera wound closure device was used to reapproximate the fascia here. The remaining 5 mm ports were removed, and the skin and subcutaneous tissues were closed with interrupted sutures. Band-Aids were applied and the patient was awoken from the anesthetic and transferred to the recovery unit. Date of Procedure: 01/07/25
[2025-01-07] VITALS (45 sets, daily range): BP systolic 107–150; BP diastolic 47–90; PULSE 56–76; RESP 9–30; TEMP 36–36.6; O2SAT 87–98; BMI 35.9
[2025-01-07] MEDS: Lactated Ringers 1,000 ML 80 ML IV (06:45)
--- NOTE | 2025-01-07 07:03 | ANES.PREOP_ITS ---
General Info Date of Service Date Performed: 01/07/25 Height: 5 ft 2 in Weight: 89.2 kg Body Mass Index (BMI): 35.9 Surgical Procedure: Operation Date: 01/07/25 07:40 Proposed Procedure Side Surgeon p Cholecystectomy Laparoscopic Aristeo Multani MD Meds Allergies and Home Medications Allergies Allergy/AdvReac Type Severity Reaction Status Date / Time oxycodone (From Percocet) Allergy Intermediate Hives, Verified 01/07/25 06:29 Nausea, itching Latex, Natural Rubber Allergy Skin Rash, Verified 01/07/25 06:29 itchy throat Home Medication ?Medication ?Instructions ?Recorded losartan 50 mg-hydrochlorothiazide 1 tab PO DAILY 10/29/21 12.5 mg tablet omeprazole 40 mg capsule,delayed 40 mg PO DAILY 10/29/21 release cholecalciferol (vitamin D3) 10 20 mcg PO DAILY 12/21/22 mcg (400 unit) capsule conjugated estrogens 0.45 1 tab PO DAILY #30 tabs 08/20/24 mg-bazedoxifene 20 mg tablet (Duavee) iron-vitamin B complex with C 1 tab PO DAILY 12/24/24 tablet Current Visit Medications: Current Medications Generic Name Dose Route Start Last Admin Trade Name Freq PRN Reason Stop Dose Admin Ringer's Solution 1,000 mls @ 80 mls/hr 01/07/25 06:00 01/07/25 06:45 IV 01/07/25 23:59 80 mls/hr INFUSION LON Administration IV Miscellaneous Supplies 1 each 01/07/25 06:00 Iv Access IV 01/07/25 23:59 DIRECTED LON Sodium Chloride 0 ml 01/07/25 06:00 Normal Saline Flush 10 Ml Syr IV 01/07/25 23:59 PRN PRN Sodium Chloride 0 ml 01/07/25 06:00 Normal Saline 10 Ml Vial IJ 01/07/25 23:59 DIRECTED PRN Sterile Water 0 ml 01/07/25 06:00 Water,Injection,Sterile 10 Ml Vial IJ 01/07/25 23:59 DIRECTED PRN Tramadol HCl 50 mg 01/06/25 16:10 Tramadol 50 Mg Tab PO 02/05/25 16:09 Q6H PRN PRN Pain PFSH Active Problems Active Problems: Problem Status Onset Code Biliary dyskinesia Acute K82.8 Right upper quadrant pain Acute R10.11 Hormone replacement therapy Acute Z79.890 Women's annual routine gynecological examination Acute Z01.419 Follicular large cell lymphoma Acute ~2020 C82.80 Menopausal symptoms Acute N95.1 Alcohol use, unspecified, in remission Acute F10.91 Anemia Chronic D64.9 Medical History Medical History PONV (postoperative nausea and vomiting) Diverticula of colon abdullahi. mild Tendonitis of long head of biceps brachii of right shoulder Arthritis of right acromioclavicular joint Rotator cuff tear, right Bursitis of right shoulder History of tobacco abuse Hyperlipidemia History of ovarian cyst Hypertension GERD (gastroesophageal reflux disease) Bipolar affective disorder B12 deficiency Anxiety Former smoker Surgical History Surgical History Hx of colonoscopy (~04/2023) Tobacco Smoking/Tobacco Use Status: Former Tobacco Use Passive smoking exposure: No Second hand exposure: No Alcohol Alcohol Intake: former Substance Use Substance use: Never Substance use type: does not use Prental History History 2 4 Para Hx # Term Pregnancies 4 Multiple births Hx # Pregnancies Ectopic pregnancies AB induced Hx Number of Living Children 4 AB spontaneous Vital Signs and Lab Results Vital Signs Most Recent Vital Signs in EMR: Most Recent Vital Signs Temp Pulse Resp BP Pulse Ox 36.6 C 67 16 120/74 98 01/07/25 06:31 01/07/25 06:31 01/07/25 06:31 01/07/25 06:31 01/07/25 06:31 Lab Results Blood Type / Crossmatch: 2 No Data to Display Complete Blood Count: 2 No Data to Display Complete Metabolic Panel: 2 No Data to Display Liver Function Panel: 2 No Data to Display Coagulation Panel: 2 No Data to Display Cardiac Panel: 2 No Data to Display Arterial Blood Gas: 2 No Data to Display Venous Blood Gas: 2 No Data to Display Pancreas Panel: 2 No Data to Display Thyroid Panel: 2 No Data to Display Infectious Disease: 2 No Data to Display Blood Cultures: 2 No Data to Display Toxicology Panel: 2 No Data to Display Imaging and Studies Imaging and Studies Study information below may be from another EMR and interpreted by another provider. Please see original notes in EMR for more complete details. EKG Summary: EKG PATIENT NAME: Terese Traore UNIT #: [id number] ORDERING PROVIDER: Bernie Shin PRIMARY CARE PROVIDER: TI YATES NP DATE/TIME OF SERVICE: 11/09/24 1558 : 1965 PERFORMING LOCATION: ER APPROVED REPORT Exam: Resting ECG Reason for Exam: ruq pain Patient Location: E HR:67 bpm ECG Measurements Heart Rate 67 AXIS ND 143 P 24 QRSd 83 QRS 64 QT 422 T48 QTc 447 Conclusion Sinus rhythm. 67 normal axis no stemi - <Electronically signed by Kody Dowling M.D. in [place]> E-Sign Date: 11/09/24 E-Sign Time: 1650 ADDENDUM APPROVED REPORT Exam: Resting ECG Reason for Exam: ruq pain Patient Location: E HR:67 bpm ECG Measurements Heart Rate 67 AXIS ND 143 P 24 QRSd 83 QRS 64 QT 422 T48 QTc 447 Conclusion Sinus rhythm. 67 normal axis no stemi I have reviewed and I agree with the emergency room physician's ECG interpretation. Electronically signed by: <Electronically signed by Camilla Landa M.D. in [place]> 11/12/24 0758 Cosigned by: Anesthesia Assessment and Plan Anesthesia History Personal History: PONV Family History: Family History Unknown Exercise Tolerance Exercise Tolerance: Metabolic Equivalents>4 Pertinent Negatives Pertinent Negatives: No Major Cardiovascular Symptoms or Complaints, No Major Pulmonary Symptoms or Complaints and No History of CVA/TIA Cardiac & Pulmonary Exam Cardiac Exam: Normal S1/S2 Heart Sounds Pulmonary Exam: Clear Bilateral Breath Sounds Implantable Cardiac Device Does patient have a Pacemaker or an ICD?: No Airway Exam Known Difficult Airway: No Mallampati Class: 3 Mouth Opening: Normal (> 3cm) Thyromental Distance: Greater than 3 cm Neck Range of Motion: Full ROM Neck Circumference: Normal Teeth Condition: Normal Dentition Tooth Numberin 1. Per patient missing teeth 2. Per patient missing teeth 3. Per patient missing teeth ASA Classification ASA Score: ASA 2 Emergency Case?: No NPO Status NPO Status: NPO Clears >2 hours, Solids >8 hours Anesthesia Plan Resuscitation Status: Full Code Anesthesia Technique: General Anesthesia Airway Planned: Natural Airway Monitors Used: Standard Monitors
[2025-01-07] MEDS: ceFAZolin 2,000 MG in Normal Saline 100 ML 200 MG IVPB (07:54)
[2025-01-07] MEDS: Indocyanine green 25 MG VIAL (08:11)
--- NOTE | 2025-01-07 08:40 | GB_PTH ---
PATIENT: Terese Traore LOC: [facility] U#:[id number] AGE/SX: 59/F ROOM: RE01/07/[address]: Aristeo Multani MD : 1965 BED: DIS: 01/07/2025 SPEC #: [id number] RECD: 01/07/25 12:45 STATUS: MAYTE RE #: [id number] ALDO: 01/07/25 08:[address]: Aristeo Multani DEPT: Surgical Specimen RECD BY: Bernie Byrne ENTERED: 01/07/25 12:46 SP TYPE: GB OTHR DR: TI YATES NP Tissues: 1 - GALLBLADDER Procedures: GROSS AND MICRO LEVEL 3 Comments: [id number]
[2025-01-07] MEDS: Bupivacaine 0.25% Pres-Free W/EPI 30 ML VIAL (08:45)
[2025-01-07] MEDS: Droperidol 5 MG/2 ML VIAL 0.625 MG IVP ×2 (09:23→10:00)
[2025-01-07] MEDS: fentaNYL 100 MCG/2 ML VIAL IVP ×3 (09:25→09:51)
[2025-01-07] MEDS: traMADol 50 MG TAB PO (11:31)
--- NOTE | 2025-01-07 11:39 | W.ANESPOSTOP ---
Postoperative Evaluation Date, Time and Location Date Performed: 01/07/25 Time Performed: 11:40 Patient Location: Day Surgery Unit Vital Signs Most Recent Imported Vital Signs: Most Recent Vital Signs Temp Pulse Resp BP Pulse Ox 36.1 C L 67 18 143/85 H 96 01/07/25 11:08 01/07/25 11:08 01/07/25 11:08 01/07/25 11:08 01/07/25 11:08 Pain Score Most Recent Pain Score: Most Recent Pain Score Pain Level 7 01/07/25 11:08 Assessment Mental Status: Awake (Alert & Oriented to Patient Baseline) Airway and Respiratory Function: Patent airway with normal (patient baseline) respiratory exam Cardiovascular Function: Hemodynamically Stable Hydration Status: Adequately Hydrated Nausea & Vomiting: Active Nausea or Vomiting Present Nausea and Vomiting Management: Nausea present without vomiting, patient wishes to be discharged (Better since droperidol in PACU) Pain: Pain is tolerable per patient Peripheral Nerve Block: Patient did not receive a nerve block
[2025-01-07] MEDS: Ondansetron 0.8 MG/ML Solution 4 MG PO (13:00)
== END 2025-01-07 13:30 | disposition home or self-care (01) ==
LOC: SUR 06:08
PROVIDERS: PCP Nurse Practitioner Family; Visit Provider Surgery
PROC: 0FT44ZZ Resection of Gallbladder, Percutaneous Endoscopic Approach (ICD-10-PCS; CPT 47562; principal; 2025-01-07 07:30)
DX: K82.8 Other specified diseases of gallbladder (principal); K80.20 Calculus of gallbladder without cholecystitis without obstruction
CPT/HCPCS: 47562; 88304; J0131; J0690; J1100; J1790; J1885; J2003; J2250; J2405; J2704; J3010; J8597

== ENCOUNTER 2025-03-24 13:59 | Outpatient (REF) | payer BC, SELFPAY ==
[2025-03-24 18:16] LABS: HCT 34.5 % (36.0-46.0); HGB 11.0 g/dL (11.2-15.7); MCH 31.8 pg (27.0-33.0); MCHC 31.9 % (32.0-36.0); MCV 100 fL (80-95); MPV 9.7 fL (8.0-11.0); Platelet Count 256 10^3/uL (130-400); RBC 3.46 10^6/uL (3.93-5.22); RDW 13.7 % (11.7-14.6); RDW-SD 49.5 fL; WBC 6.19 10^3/uL (4.4-10.8)
[2025-03-24 18:30] LABS: Iron 80 ug/dL (50-170)
[2025-03-24 18:42] LABS: Hemoglobin A1C 5.8 % (<5.7)
[2025-03-24 18:55] LABS: Vitamin B12 285 pg/mL (193-986)
== END 2025-03-24 14:00 | disposition home or self-care (01) ==
LOC: NCHCN 13:59
PROVIDERS: PCP Nurse Practitioner Family; Visit Provider Nurse Practitioner Family
DX: R73.9 Hyperglycemia, unspecified (principal); D64.9 Anemia, unspecified
CPT/HCPCS: 85027; 82607; 83036; 83540

== ENCOUNTER 2025-05-07 14:57 | Outpatient (CLI) | payer BC, SELFPAY ==
[2025-05-07 08:55] LABS: Abs Immature Grans 0.02 10^3/uL (0.0-0.06); HCT 34.7 % (36.0-46.0); HGB 11.4 g/dL (11.2-15.7); Immature Grans % 0.3 %; MCH 32.2 pg (27.0-33.0); MCHC 32.9 % (32.0-36.0); MCV 98 fL (80-95); MPV 9.1 fL (8.0-11.0); Platelet Count 243 10^3/uL (130-400); RBC 3.54 10^6/uL (3.93-5.22); RDW 13.5 % (11.7-14.6); RDW-SD 47.9 fL; WBC 6.12 10^3/uL (4.4-10.8)
[2025-05-07 09:26] LABS: ALT 28 U/L (14-59); AST 19 U/L (15-37); Albumin 3.8 g/dL (3.4-5.0); Alkaline Phosphatase 97 U/L (46-116); Anion Gap 7.4 mmol/L (3-11); BUN 16 mg/dL (7-18); Bilirubin, Total 0.4 mg/dL (0.2-1.0); CO2 29.6 mmol/L (21.0-32.0); Calcium 9.0 mg/dL (8.5-10.1); Chloride 104 mmol/L (98-107); Estimated GFR 83.78 (mL/min/1.73m2); Glucose 129 mg/dL (74-106); Potassium 3.8 mmol/L (3.5-5.1); Sodium 141 mmol/L (136-145); Total Protein 7.1 g/dL (6.4-8.2)
[2025-05-07 09:41] LABS: LDH 191 U/L (81-234)
== END 2025-05-07 14:58 | disposition home or self-care (01) ==
LOC: LBO 14:57
PROVIDERS: PCP Nurse Practitioner Family; Visit Provider Nurse Practitioner Family
DX: C82.90 Follicular lymphoma, unspecified, unspecified site (principal)
CPT/HCPCS: 36415; 80053; 83615; 85025